=== PATIENT | female | born 1940 | race Caucasian/White ===

== ENCOUNTER 2019-10-16 04:05 | Outpatient (RCR) | payer MEDICARE, MEDICAID, SELFPAY | END 2019-10-21 00:01 | LOC: LAB 04:05 | PROVIDERS: Family Provider Family Medicine; Visit Provider Nurse Practitioner Family | DX: F33.3 Major depressive disorder, recurrent, severe with psychotic symptoms (principal) | CPT/HCPCS: 36415 ×4; 80048; 83036; 85025 ×4 ==

== ENCOUNTER 2019-10-22 06:00 | Outpatient (CLI) | payer MEDICARE, MEDICAID, SELFPAY | END 2019-10-22 06:01 | disposition home or self-care (01) | LOC: LAB 10-07 15:24 | PROVIDERS: Family Provider Family Medicine; PCP Family Medicine; Visit Provider Nurse Practitioner Family | DX: F29 Unspecified psychosis not due to a substance or known physiological condition (principal) | CPT/HCPCS: 85025 ==

== ENCOUNTER 2019-11-06 06:53 | Outpatient (RCR) | payer MEDICARE, MEDICAID, SELFPAY ==
[2019-10-30 12:07] LABS: Basophils % 0.6 %; Eosinophils # 0.3 10^3/uL (0.0-0.8); Eosinophils % 4.4 %; Hematocrit 36.2 % (37.0-47.0); Hemoglobin 11.2 g/dL (11.5-15.3); Lymphocytes # 1.7 10^3/uL (0.8-4.8); Lymphocytes % 24.1 %; Mean Corpuscular HGB Conc 30.9 g/dL (30.0-36.0); Mean Corpuscular Hemoglobin 27.7 pg (28.0-34.0); Mean Corpuscular Volume 89.4 fL (81-99); Monocytes # 0.5 10^3/uL (0.2-0.9); Monocytes % 7.2 %; Neutrophils # 4.6 10^3/uL (1.8-7.7); Neutrophils % 63.3 %; Nucleated Red Blood Cells % 0 %; Platelet Count 389 10^3/cmm (130-400); Red Blood Count 4.05 10^6/uL (4.1-5.3); Red Cell Distribution Width 15.5 % (12.1-15.1); White Blood Count 7.2 10^3/uL (4.0-10.0)
[2019-11-06 12:42] LABS: Basophils % 0.6 %; Eosinophils # 0.3 10^3/uL (0.0-0.8); Eosinophils % 4.3 %; Hematocrit 34.5 % (37.0-47.0); Hemoglobin 10.7 g/dL (11.5-15.3); Lymphocytes % 27.6 %; Mean Corpuscular Hemoglobin 26.6 pg (28.0-34.0); Mean Corpuscular Volume 85.6 fL (81-99); Mean Platelet Volume 11.3 fL (7.4-10.4); Monocytes # 0.5 10^3/uL (0.2-0.9); Monocytes % 6.2 %; Neutrophils # 4.4 10^3/uL (1.8-7.7); Neutrophils % 60.9 %; Nucleated Red Blood Cells % 0 %; Platelet Count 386 10^3/cmm (130-400); Red Blood Count 4.03 10^6/uL (4.1-5.3); Red Cell Distribution Width 14.8 % (12.1-15.1); White Blood Count 7.2 10^3/uL (4.0-10.0)
== END 2019-11-21 23:59 | disposition home or self-care (01) ==
LOC: LAB 06:53
PROVIDERS: Family Provider Family Medicine; PCP Family Medicine; Visit Provider Dermatology
DX: F33.3 Major depressive disorder, recurrent, severe with psychotic symptoms (principal)
CPT/HCPCS: 85025

== ENCOUNTER 2019-11-13 13:18 | Outpatient (RCR) | payer MEDICARE, MEDICAID, SELFPAY ==
[2019-11-13 14:15] LABS: Basophils % 0.4 %; Eosinophils # 0.4 10^3/uL (0.0-0.8); Hemoglobin 10.7 g/dL (11.5-15.3); Lymphocytes # 2.3 10^3/uL (0.8-4.8); Lymphocytes % 23.3 %; Mean Corpuscular HGB Conc 30.6 g/dL (30.0-36.0); Mean Corpuscular Hemoglobin 27.3 pg (28.0-34.0); Mean Corpuscular Volume 89.3 fL (81-99); Mean Platelet Volume 11.2 fL (7.4-10.4); Monocytes # 0.6 10^3/uL (0.2-0.9); Neutrophils # 6.4 10^3/uL (1.8-7.7); Neutrophils % 65.6 %; Nucleated Red Blood Cells % 0 %; Platelet Count 394 10^3/cmm (130-400); Red Blood Count 3.92 10^6/uL (4.1-5.3); Red Cell Distribution Width 15.6 % (12.1-15.1); White Blood Count 9.7 10^3/uL (4.0-10.0)
== END 2019-11-21 23:59 | disposition home or self-care (01) ==
LOC: LAB 13:18
PROVIDERS: Family Provider Family Medicine; PCP Family Medicine; Visit Provider Internal Medicine
DX: F33.3 Major depressive disorder, recurrent, severe with psychotic symptoms (principal)
CPT/HCPCS: 85025

== ENCOUNTER 2020-08-14 18:26 | Emergency (ER) | payer MEDICARE, MEDICAID, SELFPAY ==
[2020-08-14] VITALS (8 sets, daily range): BP systolic 119–171; BP diastolic 69–105; PULSE 76–85; RESP 16–20; TEMP 36.6; O2SAT 93–100; BMI 25.3
--- NOTE | 2020-08-14 18:44 | XRR_ITS ---
PROCEDURE INFORMATION: Exam: XR Chest, 1 View Exam date and time: 08/14/2020 6:46 PM Age: 80 years old Clinical indication: Dyspnea; Patient HX: Covid +; Additional info: Hypoxia TECHNIQUE: Imaging protocol: XR of the chest Views: 1 view. COMPARISON: CR Chest 1 [place] [id number] 08/12/2019 9:09 PM FINDINGS: Tubes, catheters and devices: Shunt catheter tubing is projected over the right chest. Lungs: The lungs are hyperinflated with diffuse mild interstitial fibrosis. No airspace consolidation. Pulmonary vascularity is within normal limits. Pleural space: Unremarkable. No pleural effusion. No pneumothorax. Heart/Mediastinum: A large hiatal hernia is present. The heart is enlarged. Bones/joints: No acute abnormality. XR/XR chest 1V portable [id number] IMPRESSION: The lungs are hyperinflated but clear. Probable interstitial fibrosis.
--- NOTE | 2020-08-14 18:47 | ED_ITS ---
HPI - COVID General: Chief Complaint: COVID symptoms Stated Complaint: COVID POS; RESP DISTRESS Time Seen by Provider: 08/14/20 18:27 Source: patient and EMS Mode of arrival: EMS Limitations: other (dementia) History of Present Illness: HPI Narrative: Patient is a 80-year-old half-way resident who was diagnosed with COVID-19 3 days ago. Decide about 30 minutes ago the patient went into respiratory distress with oxygen saturation at 85% on 2 L of oxygen. The EMS crew increase oxygen to 5 L and her saturation went up into the high 90s. The patient has dementia and is unable to give me much of a history but she did say she was short of breath and she denied chest pain. It is uncertain if she has had a fever in the last few days. MD complaint: known COVID positive Prior covid testing: yes, results known COVID 19 common symptoms: positive dyspnea COVID 19 other sytmptoms: positive requiring oxygen, requiring more oxygen and respiratory distress Pertinent comorbid conditions: diabetes, hypertension and heart disease COVID Results: No Data to Display Review of Systems General: Reports: ROS unobtainable due to mental status Resp: Reports: dyspnea PFSH ED PFSH: Medical History Atherosclerosis of coronary artery Hyperlipidemia Family History Mother Cancer CAD (coronary artery disease) Myocardial infarction Stroke Diabetes Hypertension Father CAD (coronary artery disease) Myocardial infarction Sister Diabetes Grandmother Diabetes Social History Smoking and tobacco status: never smoked Physical Exam Const: COMMON NORMALS: no acute distress, average body habitus, patient oriented x3, no limitations, healthy appearing, alert and well nourished HENMT: COMMON NORMALS: normocephalic, atraumatic and moist oral mucous membranes HEAD & SCALP: normocephalic and atraumatic Eye: COMMON NORMALS: Equal, round and reactive pupils present, EOMs intact bilaterally, conjunctivae normal and no scleral icterus CONJUNCTIVA: Yes conjunctivae normal PUPIL: Yes Equal, round and reactive pupils present Neck/C-Spine: COMMON NORMALS: no meningeal signs and no JVD Resp: COMMON NORMALS: normal respiratory effort, No retractions, No use of accessory muscles, clear to auscultation bilaterally and percussion normal AUSCULTATION: clear to auscultation bilaterally PERCUSSION: percussion normal Cardio: COMMON NORMALS: no JVD, regular rate, regular rhythm, S1 normal heart sound present, S2 normal heart sound present, No gallops present (Cardio), No clicks present (Cardio), No murmurs present (Cardio), No rub (Cardio) and Peripheral pulses 2+ throughout RATE: regular rate RHYTHM: regular rhythm HEART SOUNDS: S1 normal heart sound present and S2 normal heart sound present PERIPHERAL PULSES: Peripheral pulses 2+ throughout GI: COMMON NORMALS: Normal to inspection, nondistended, normoactive bowel sounds present, Soft to palpation, non-tender, No hepatosplenomegaly present, no masses and no bruits PALPATION: Yes Soft to palpation and Yes No hepatosplenomegaly present Extremity: COMMON NORMALS: normal to inspection, full ROM, capillary refill normal, no calf tenderness and no pedal edema Neuro: COMMON NORMALS: patient oriented x3 SENSORIUM/ORIENTATION: Yes alert MENINGEAL SIGNS: Yes no meningeal signs Skin: COMMON NORMALS: no rashes or lesions noted, no wounds, turgor normal, no jaundice, no petechiae and no mottling GENERAL SKIN EXAM: no rashes or lesions noted and turgor normal Course ED course: Patient was sent here from the half-way with concerns of respiratory distress secondary to COVID-19. She was recently diagnosed with COVID-19 and he felt that her symptoms are worsening today. In the emergency department evaluation showed that she was not in distress, labs and imaging are not consistent with severe COVID-19 illness. She is therefore discharged back to the nursing facility with no new orders. Vital Signs: Vital signs: Vital Signs Temperature 97.8 F 08/14/20 18:43 Pulse Rate 79 08/15/20 00:46 Respiratory Rate 18 08/15/20 00:46 Blood Pressure 137/94 08/15/20 00:46 Pulse Oximetry 96 08/15/20 00:46 MDM - COVID MDM Narrative Medical decision making narrative: 80-year-old half-way resident who was sent to the emergency department with concerns for respiratory distress. Patient was not in respiratory distress and on evaluation there are no clinical findings consistent with severe COVID-19 infection. She is discharged back to the half-way with no new orders Medical Records Attestation: I reviewed the patient's medical records. Lab Data Attestation: I reviewed the patient's lab results. Result diagrams: 08/14/20 19:50 08/14/20 19:50 Labs: Lab Results 08/14/20 08/14/20 08/14/20 Range/Units 19:50 19:50 19:50 WBC 8.9 (4.0-10.0) 10^3/uL RBC 2.88 L (4.1-5.3) 10^6/uL Hgb 8.5 L (11.5-15.3) g/dL Hct 27.2 L (37.0-47.0) % MCV 94.4 (81-99) fL MCH 29.5 (28.0-34.0) pg MCHC 31.3 (30.0-36.0) g/dL RDW 14.0 (12.1-15.1) % Plt Count 298 (130-400) 10^3/cmm MPV 10.7 H (7.4-10.4) fL Neut % (Auto) 85.5 % Lymph % (Auto) 9.9 % [place] % (Auto) 3.1 % Eos % (Auto) 0.3 % Baso % (Auto) 0.2 % Neut # (Auto) 7.62 (1.8-7.7) 10^3/uL Lymph # (Auto) 0.9 (0.8-4.8) 10^3/uL [place] # (Auto) 0.3 (0.2-0.9) 10^3/uL Eos # (Auto) 0.0 (0.0-0.8) 10^3/uL Baso # (Auto) 0.0 (0.0-0.1) 10^3/uL Nucleated RBC % (auto) 0 % Nucleated RBCs # 0.0 /100WBC Fibrinogen 392 (174-498) mg/dL D-Dimer 1.14 H (0-0.59) ug/mIFEU Sodium 136 (136-145) mmol/L Potassium 4.2 (3.5-5.1) mmol/L Chloride 99 (98-107) mmol/L Carbon Dioxide 23 (22-29) mmol/L Anion Gap 18.2 (5-19) BUN 34 H (8-23) mg/dL Creatinine 1.4 H (0.5-0.9) mg/dL GFR Calculation Not Reportable Glucose 168 H (65-115) mg/dL Calculated Osmolality 293 (285-295) mOsm/kg Lactic Acid (0.5-2.2) mmol/L Calcium 8.8 (8.5-10.5) mg/dL Total Bilirubin 0.2 (0.15-1.2) mg/dL AST 9 (0-32) U/L ALT 9 (0-33) U/L Alkaline Phosphatase 82 (35-105) IU/L Lactate Dehydrogenase 188 (135-214) U/L Creatine Kinase 73 (26-192) U/L Troponin T Baseline (0-10) ng/L Troponin T 120 Minute (0-10) ng/L Delta Troponin T (0-10) ABS# C-Reactive Protein 16.5 H (0.0-4.9) mg/L Total Protein 5.6 L (6.6-8.7) g/dL Albumin 3.7 (3.5-5.2) g/dL Globulin 1.9 (1.3-4.6) g/dL Procalcitonin 0.11 (0-0.5) ng/mL 08/14/20 08/14/20 08/14/20 Range/Units 19:50 19:55 22:05 WBC (4.0-10.0) 10^3/uL RBC (4.1-5.3) 10^6/uL Hgb (11.5-15.3) g/dL Hct (37.0-47.0) % MCV (81-99) fL MCH (28.0-34.0) pg MCHC (30.0-36.0) g/dL RDW (12.1-15.1) % Plt Count (130-400) 10^3/cmm MPV (7.4-10.4) fL Neut % (Auto) % Lymph % (Auto) % [place] % (Auto) % Eos % (Auto) % Baso % (Auto) % Neut # (Auto) (1.8-7.7) 10^3/uL Lymph # (Auto) (0.8-4.8) 10^3/uL [place] # (Auto) (0.2-0.9) 10^3/uL Eos # (Auto) (0.0-0.8) 10^3/uL Baso # (Auto) (0.0-0.1) 10^3/uL Nucleated RBC % (auto) % Nucleated RBCs # /100WBC Fibrinogen (174-498) mg/dL D-Dimer (0-0.59) ug/mIFEU Sodium (136-145) mmol/L Potassium (3.5-5.1) mmol/L Chloride (98-107) mmol/L Carbon Dioxide (22-29) mmol/L Anion Gap (5-19) BUN (8-23) mg/dL Creatinine (0.5-0.9) mg/dL GFR Calculation Glucose (65-115) mg/dL Calculated Osmolality (285-295) mOsm/kg Lactic Acid 1.8 (0.5-2.2) mmol/L Calcium (8.5-10.5) mg/dL Total Bilirubin (0.15-1.2) mg/dL AST (0-32) U/L ALT (0-33) U/L Alkaline Phosphatase (35-105) IU/L Lactate Dehydrogenase (135-214) U/L Creatine Kinase (26-192) U/L Troponin T Baseline 25 H (0-10) ng/L Troponin T 120 Minute 20.71 H (0-10) ng/L Delta Troponin T -4.29 L (0-10) ABS# C-Reactive Protein (0.0-4.9) mg/L Total Protein (6.6-8.7) g/dL Albumin (3.5-5.2) g/dL Globulin (1.3-4.6) g/dL Procalcitonin (0-0.5) ng/mL COVID Results: No Data to Display Imaging Data CXR: Attestation: I personally reviewed and interpreted this imaging study as follows: Radiologist's impression: [address] [address] XRay Report Signed Patient: Ladonna Linder AUnit #: [id number] : 1Acct#:[id number] Age/Sex: 80 / FADM Date: 08/14/20 Loc: ERRoom/Bed: Attending Dr: Ordering Provider/Ordering MD: Fernandez Rushing MD, [facility] [place] Date of Service: 08/14/20 Procedure(s): XR chest 1V portable [id number] Accession Number(s): [id number] Report Number: [id number] PROCEDURE INFORMATION: Exam: XR Chest, 1 View Exam date and time: 08/14/2020 6:46 PM Age: 80 years old Clinical indication: Dyspnea; Patient HX: Covid +; Additional info: Hypoxia TECHNIQUE: Imaging protocol: XR of the chest Views: 1 view. COMPARISON: CR Chest 1 [place] [id number] 08/12/2019 9:09 PM FINDINGS: Tubes, catheters and devices: Shunt catheter tubing is projected over the right chest. Lungs: The lungs are hyperinflated with diffuse mild interstitial fibrosis. No airspace consolidation. Pulmonary vascularity is within normal limits. Pleural space: Unremarkable. No pleural effusion. No pneumothorax. Heart/Mediastinum: A large hiatal hernia is present. The heart is enlarged. Bones/joints: No acute abnormality. XR/XR chest 1V portable [id number] IMPRESSION: The lungs are hyperinflated but clear. Probable interstitial fibrosis. Dictated By:Meche Frazier Signed By:Lavelle Frazier Date/Time:08/14/201927 DD/ 26 EKG Data EKG 1: Attestation: I personally reviewed and interpreted this EKG as follows: EKG interpretation date: 08/14/20 EKG interpretation time: 19:16 Prior EKG tracings: not available for review Interpretation: Atrial fibrillation. Heart rate [address] changes. EKG 2: Attestation: I personally reviewed and interpreted this EKG as follows: EKG interpretation date: 08/14/20 EKG interpretation time: 21:53 Prior EKG tracings: available for review Interpretation: Rhythm with occasional supraventricular premature complexes. Heart rate [address] changes. Discharge Plan Discharge Patient Disposition: Xfer [facility] Not MCR Cert Clinical Impression: COVID-19 Condition: Stable Prescriptions: Continued pravastatin 20 mg tablet 20 mg PO DAILY RF: 0 metoprolol succinate 25 mg tablet extended release 24 hr 12.5 mg PO DAILY RF: 0 isosorbide mononitrate 30 mg tablet extended release 24 hr 30 mg PO DAILY RF: 0 acetaminophen [Tylenol] 325 mg tablet 325 mg PO QID PRNRF: 0 alprazolam 0.25 mg tablet 0.25 mg PO TID PRNRF: 0 amantadine HCl 100 mg capsule 100 mg PO BID RF: 0 clozapine 50 mg tablet 50 mg PO BID RF: 0 ferrous sulfate 325 mg (65 mg iron) tablet 325 mg PO DAILY RF: 0 Lantus U-100 Insulin 100 unit/mL solution 100 unit SUBCUT DAILY RF: 0 levothyroxine 50 mcg capsule 50 mcg PO DAILY RF: 0 lisinopril 10 mg tablet 10 mg PO DAILY RF: 0 lorazepam 1 mg tablet 1 mg PO DAILY PRNRF: 0 metformin 1,000 mg tablet 1,000 mg PO BID RF: 0 omega-3 fatty acids 1,000 mg capsule 1,000 mg PO DAILY RF: 0 ondansetron HCl [Zofran] 4 mg tablet 4 mg PO Q8H RF: 0 polyethylene glycol 3350 [Miralax] 17 gram powder in packet 17 gm PO DAILY RF: 0 senna 8.6 mg capsule 8.6 mg PO BID PRNRF: 0 sertraline 100 mg tablet 100 mg PO DAILY RF: 0 vitamin B complex [B Complex-Vitamin B12] Tablet 1 tab PO DAILY RF: 0 vitamin E (dl, acetate) 400 unit capsule 400 unit PO DAILY RF: 0 omeprazole 40 mg capsule,delayed release(DR/EC) 40 mg PO DAILY RF: 0 Latuda 40 mg tablet 40 mg PO DAILY RF: 0 Discharge Orders: Discharge Order (Routine); Ordered 08/14/20 Ordered By: Fernandez Rushing Referrals: Edwardo Carranza Jr, MD [Primary Care Provider] - 1-3 days Discharge Diet: Usual diet Discharge Activity: Resume usual activity Activity Restrictions/Additional Instructions: Return for any new or worsening symptoms. Continue home medications. Monitor your oxygen levels if it drops below 92% return for evaluation. Follow-up with your primary care provider within 3 days. Coding Level of Care Code ED Medical Staff Director for Chg Fwd Exam Comprehensive
--- NOTE | 2020-08-14 18:52 | ECG_ITS ---
[facility] Test Date: 2020-08-14 Pat Name: Ladonna Linder Department: Room: Gender: Female Paper Finisher: : 1940 Requested By: Fernandez Rushing I Order Number: [id number] Reinaldo MD: May Cruz M.D. Measurements Intervals [employer] Rate: 80 P: [place]: -1 QRS: -13 QRSD: 86 T: 90 QT: 391 QTc: 453 Interpretive Statements ATRIAL FIBRILLATION POSSIBLE LATERAL MYOCARDIAL INFARCTION , OF INDETERMINATE AGE WARNING: DATA QUALITY MAY AFFECT INTERPRETATION Compared to ECG 08/12/2019 23:53:45 Myocardial infarct finding now present Sinus rhythm no longer present Electronically Signed On 08-15-2020 12:10:51 CDT by May Cruz M.D. [id number]
[2020-08-14 20:25] LABS: Fibrinogen 392 mg/dL (174-498)
[2020-08-14 20:28] LABS: D Dimer 1.14 ug/mIFEU (0-0.59); Lactic Sepsis W/Reflex 1.8 mmol/L (0.5-2.2)
[2020-08-14 20:31] LABS: Troponin(5th) Baseline 25 ng/L (0-10)
[2020-08-14 20:33] LABS: Basophils % 0.2 %; Eosinophils % 0.3 %; Hematocrit 27.2 % (37.0-47.0); Hemoglobin 8.5 g/dL (11.5-15.3); Lymphocytes # 0.9 10^3/uL (0.8-4.8); Lymphocytes % 9.9 %; Mean Corpuscular HGB Conc 31.3 g/dL (30.0-36.0); Mean Corpuscular Hemoglobin 29.5 pg (28.0-34.0); Mean Corpuscular Volume 94.4 fL (81-99); Mean Platelet Volume 10.7 fL (7.4-10.4); Monocytes # 0.3 10^3/uL (0.2-0.9); Monocytes % 3.1 %; Neutrophils # 7.62 10^3/uL (1.8-7.7); Neutrophils % 85.5 %; Nucleated Red Blood Cells % 0 %; Platelet Count 298 10^3/cmm (130-400); Red Blood Count 2.88 10^6/uL (4.1-5.3); White Blood Count 8.9 10^3/uL (4.0-10.0)
[2020-08-14 20:39] LABS: Procalcitonin 0.11 ng/mL (0-0.5)
[2020-08-14 20:50] LABS: Alanine Aminotransferase 9 U/L (0-33); Albumin Level 3.7 g/dL (3.5-5.2); Alkaline Phosphatase 82 IU/L (35-105); Anion Gap 18.2 (5-19); Aspartate Amino Transferase 9 U/L (0-32); Blood Urea Nitrogen 34 mg/dL (8-23); C Reactive Protein 16.5 mg/L (0.0-4.9); Calcium 8.8 mg/dL (8.5-10.5); Carbon Dioxide 23 mmol/L (22-29); Chloride 99 mmol/L (98-107); Creatine Phosphokinase 73 U/L (26-192); Globulin 1.9 g/dL (1.3-4.6); Glucose 168 mg/dL (65-115); Lactate Dehydrogenase 188 U/L (135-214); Osmolality Calculated 293 mOsm/kg (285-295); Potassium 4.2 mmol/L (3.5-5.1); Sodium 136 mmol/L (136-145); Total Bilirubin 0.2 mg/dL (0.15-1.2); Total Protein 5.6 g/dL (6.6-8.7)
--- NOTE | 2020-08-14 20:52 | ECG_ITS ---
[facility] Test Date: 2020-08-14 Pat Name: Ladonna Linder Department: Room: Gender: Female Staffing Administrator: : 1940 Requested By: Fernandez Rushing I Order Number: [id number] Reinaldo MD: May Cruz M.D. Measurements Intervals [place] Rate: 81 P: 92 NE: 116 QRS: -11 QRSD: 89 T: 30 QT: 401 QTc: 468 Interpretive Statements SINUS RHYTHM WITH SHORT NE INTERVAL WITH OCCASIONAL SUPRAVENTRICULAR PREMATURE COMPLEXES NONSPECIFIC T-WAVE ABNORMALITY Compared to ECG 08/14/2020 19:16:19 Short NE interval now present T-wave abnormality now present Atrial fibrillation no longer present Myocardial infarct finding no longer present Electronically Signed On 08-14-2020 22:09:10 CDT by May Cruz M.D. [id number]
[2020-08-14 22:56] LABS: Troponin 5 2HR 20.71 ng/L (0-10); Troponin 5 2HR Delta -4.29 ABS# (0-10)
--- NOTE | 2020-08-15 00:07 | PC.SOCIAL ---
Trip number [id number], Nurse will do BLS form and submit to [facility].
[2020-08-15 00:29] VITALS: BP 124/75; PULSE 79; O2SAT 94
[2020-08-15 00:46] VITALS: BP 137/94; PULSE 79; RESP 18; O2SAT 96
[2020-08-15 01:21] VITALS: BP 140/78; PULSE 75; O2SAT 100
[2020-08-15 02:04] VITALS: BP 116/72; PULSE 71; RESP 18; O2SAT 100
--- NOTE | 2020-08-16 06:35 | PC.NURSE ---
Thom called to inform them that patient 1/4 aerobic blood culture bottles tested gram positive for cocci and clusters
== END 2020-08-15 03:24 ==
PROVIDERS: Emergency Provider Family Medicine; Family Provider Family Medicine; PCP Family Medicine
DX: U07.1 COVID-19 (principal); Z79.4 Long term (current) use of insulin; E78.5 Hyperlipidemia, unspecified; I25.10 Atherosclerotic heart disease of native coronary artery without angina pectoris
CPT/HCPCS: 12345; 71045; 80053; 82550; 83605; 83615; 84145; 84484; 85025; 85378; 85384; 86140; 87040; 87205; 93005; 99283

== ENCOUNTER 2020-10-08 02:09 | Emergency (ER) | payer MEDICARE, MEDICAID, SELFPAY ==
[2020-10-08] VITALS (37 sets, daily range): BP systolic 136–160; BP diastolic 71–86; PULSE 78–93; RESP 14–27; TEMP 37; O2SAT 84–100; BMI 23.3
--- NOTE | 2020-10-08 02:13 | CTR_ITS ---
PROCEDURE INFORMATION: Exam: CT Head Without Contrast Exam date and time: 10/08/2020 2:17 AM Age: 80 years old Clinical indication: Altered mental status/memory loss; Prior surgery; Surgery type: Shunt; Patient HX: Seizure activity this a. M. ; Additional info: New onset seizures TECHNIQUE: Imaging protocol: Computed tomography of the head without contrast. Radiation optimization: All CT scans at this facility use at least one of these dose optimization techniques: automated exposure control; mA and/or kV adjustment per patient size (includes targeted exams where dose is matched to clinical indication); or iterative reconstruction. COMPARISON: CT head wo con* [id number] 08/12/2019 9:00 PM RADIATION DOSE METRICS: Total DLP (mGy-cm): 474.84 FINDINGS: Tubes, catheters and devices: Right posterior MEDICAL NURSE shunt tube crosses the midline, tip in the frontal horn of the left lateral ventricle, not significantly changed. Ventricle size appears essentially stable, no significant hydrocephalus. Brain: No acute intracranial hemorrhage or mass effect. There is decreased attenuation in the periventricular white matter, likely from microvascular disease. No definite acute infarct by CT. MRI could be more sensitive/specific for detection, as clinically directed. Cerebral ventricles: See Tubes, catheters and devices finding. Bones/joints: No definite acute skull fracture. Paranasal sinuses: Included paranasal sinuses are essentially clear. Mastoid air cells: No significant acute finding. Vasculature: Vascular calcifications in the internal carotid and vertebral basilar systems. CT/CT head wo con* [id number] IMPRESSION: 1. No acute intracranial hemorrhage or mass effect. 2. No definite acute infarct by CT, see above. 3. MEDICAL NURSE shunt tube as above, no hydrocephalus. 4. Other findings discussed above. Radiation Dose CTDIVOL = (mGy): DLP = 474.84 (mGy-cm)
--- NOTE | 2020-10-08 02:13 | XR_ITS ---
WS: [id number] XR chest 1V portable [id number] REASON FOR EXAM: Seizure FINDINGS: Compared to the previous examination of 08/14/2020, there is ill-defined increased opacity overlying the left costophrenic angle and adjacent to the left heart border. Large hiatal hernia the heart and mediastinum are otherwise unremarkable. Ventriculoperitoneal shunt tubing crosses the medial aspect of the right chest. The right lung field is clear. No significant abnormality of the bony thorax. XR/XR chest 1V portable [id number] IMPRESSION: The density in the base of the left lung is likely due to poor inspiratory effo rt and an element of atelectasis. Follow-up chest x-ray with better inspiration if possible.
--- NOTE | 2020-10-08 02:14 | ECG_ITS ---
[facility] Test Date: 2020-10-08 Pat Name: Ladonna Linder Department: Room: Gender: Female Auto Tester: : 1940 Requested By: Lois Fagan Order Number: [id number] Reinaldo MD: Juan Horne M.D. Measurements Intervals [place] Rate: 77 P: 73 NE: 120 QRS: -4 QRSD: 102 T: 132 QT: 411 QTc: 468 Interpretive Statements Possible multifocal atrial rhythm MODERATE ST DEPRESSION [0.05+ mV ST DEPRESSION] ABNORMAL QRS-T ANGLE [QRS-T AXIS DIFFERENCE > 60] INTERPRETATION BASED ON A DEFAULT AGE OF 40 YEARS Compared to ECG 08/14/2020 21:53:38 ST (T wave) deviation now present Short NE interval no longer present T-wave abnormality no longer present Electronically Signed On 10-08-2020 18:33:12 COMMERCIAL BANKER by Juan Horne M.D. [id number] f
--- NOTE | 2020-10-08 02:16 | XR_ITS ---
WS: [id number] XR pelvis 1-2V* [id number] REASON FOR EXAM: fall FINDINGS: Ventriculoperitoneal shunt tubing is noted coiled in the lower pelvis. 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 The right femoral head, femoral neck, trochanters and intertrochanteric region are unremarkable. The proximal femur below the trochanters is normal. The superior and inferior pubic ramus are normal. XR/XR pelvis 1-2V* [id number] IMPRESSION: No fracture identified.
--- NOTE | 2020-10-08 02:33 | ED_ITS ---
HPI - Seizure General: Chief Complaint: Seizure Stated Complaint: seizure Time Seen by Provider: 10/08/20 02:13 Source: patient and EMS Mode of arrival: EMS Limitations: altered mental status History of Present Illness: HPI Narrative: Ladonna is a very pleasant 80-year-old female who comes in from the long-term after having a witnessed 4-minute grand mal seizure. The patient was going to sit on the toilet when she stood and stiffen before sitting down and then was lowered to the ground by staff and witnessed to have a 4-minute tonic-clonic seizure. Patient was postic dulce but upon EMS arrival she was beginning to wake up. She was recognizing people at the long-term before she came here. Patient's sister states that about 1-1/2 years ago it is believed that she may have had a seizure then but it was not definitively determined so she was not placed on any medications. 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 Patient's not been sick recently with any type of fever, urinary symptoms or cough. The patient has had the Covid virus but it was several months ago and she has completely recovered. Patient at this time appears to have a GCS of 14 but she is slightly confused so history given by her is deemed questionably reliable. She denies any pain at this time. Review of Systems General: Reports: ROS unobtainable due to mental status [facility] ED PFSH: Medical History (Updated 10/08/20 @ 04:40 by Lois Gonzales) Atherosclerosis of coronary artery Dementia Diabetes mellitus GERD (gastroesophageal reflux disease) GI bleed Hiatal hernia History of pulmonary embolism Hyperlipidemia Hypertension Neuropathy OCD (obsessive compulsive disorder) S/P ORIF (open reduction internal fixation) fracture right humerous Family History Mother Cancer CAD (coronary artery disease) Myocardial infarction Stroke Diabetes Hypertension Father CAD (coronary artery disease) Myocardial infarction Sister Diabetes Grandmother Diabetes Social History Smoking and tobacco status: never smoked Physical Exam Const: COMMON NORMALS: no acute distress, no limitations and alert GENERAL APPEARANCE: cooperative HENMT: COMMON NORMALS: normocephalic, atraumatic, external ears normal, EAC's normal and Normal external nose present HEAD & SCALP: normal to inspection, normocephalic and atraumatic FACE & SINUS: normal facial exam and face symmetric NOSE: Normal external nose present and Normal nares present EXTERNAL EAR: Yes external ears normal EXTERNAL AUDITORY CANAL: EAC's normal MOUTH: Normal oral and palatal mucosa present, lip normal and tongue normal Eye: COMMON NORMALS: Equal, round and reactive pupils present and conjunctivae normal GENERAL EYE: appearance normal, both eyes and all related structures ALIGNMENT: Yes alignment normal PERIORBITAL: periorbital findings normal EYELID: eyelids normal CONJUNCTIVA: Yes conjunctivae normal SCLERA: sclerae normal PUPIL: Yes Equal, round and reactive pupils present Neck/C-Spine: COMMON NORMALS: full ROM, no lymphadenopathy, supple, no meningeal signs and no JVD GENERAL: Yes normal visual inspection and Yes trachea midline Chest: COMMONS NORMALS: normal inspection of the chest and normal palpation of entire chest wall Resp: COMMON NORMALS: normal respiratory effort, No retractions, No use of accessory muscles and clear to auscultation bilaterally EFFORT & INSPECTION: Yes able to speak in complete sentences and Yes symmetric chest movement AUSCULTATION: clear to auscultation bilaterally, no crackles, no rales, no rhonchi and no wheezes Cardio: COMMON NORMALS: no JVD, regular rate, regular rhythm, S1 normal heart sound present and S2 normal heart sound present RATE: regular rate RHYTHM: regular rhythm HEART SOUNDS: S1 normal heart sound present, S2 normal heart sound present, no click, no gallops, no murmurs and no rubs GI: COMMON NORMALS: Soft to palpation and No hepatosplenomegaly present PALPATION: Yes Soft to palpation, No Tenderness to palpation present (GI), No Guarding due to palpation present (GI), No Rigid due to palpation, Yes No hepatosplenomegaly present, No Hernia present, No Palpable mass present and No Pulsatile mass present : COMMON NORMALS: Yes no CVA tenderness BLADDER/KIDNEY EXAM: Yes no CVA tenderness EXTERNAL FEMALE EXAM: No Hernia present Back/Pelvis: COMMON NORMALS: no CVA tenderness, thoracic and lumbar spine normal to inspection, no thoracic nor lumbar tenderness and thoraco-lumbar ROM normal Extremity: COMMON NORMALS: normal to inspection, full ROM, capillary refill normal, no joint enlargement, no clubbing, cyanosis or edema and no calf tenderness Neuro: PETERSON COMA SCALE: document GCS findings Peterson coma scale eye opening: Spontaneous Peterson coma scale verbal response: Confused [place] coma scale motor response: Obey commands [place] coma scale total score: 14 COMMON NORMALS: CN's II-XII intact bilaterally, moves all extremities, no focal motor deficits and no sensory deficits noted SENSORIUM/ORIENTATION: Yes alert MENINGEAL SIGNS: Yes no meningeal signs SPEECH: speech normal Skin: COMMON NORMALS: no rashes or lesions noted, turgor normal, no jaundice, no petechiae and no mottling GENERAL SKIN EXAM: no rashes or lesions noted and turgor normal Course Vital Signs: Vital signs: Vital Signs Temperature 98.6 F 10/08/20 02:12 Pulse Rate 87 10/08/20 04:15 Respiratory Rate 18 10/08/20 04:15 Blood Pressure 150/86 10/08/20 04:15 Pulse Oximetry 98 10/08/20 04:15 MDM - Seizure MDM Narrative: Medical decision making narrative: [id number] -Mrs. Linder is a very nice 80-year-old female who comes on after a witnessed seizure at the long-term. Work-up here shows her GAS TRANSFER OPERATOR shunt to be stable with no evidence of hydrocephalus. Her sister is here and present and feels that the patient is back to her baseline mental function. Patient does not show any lateralizing weakness, aphasia or symptom of stroke. Patient does have urinary tract infection as well as hypomagnesemia which both could be a precipitant of seizure. Patient sister relates that a year and a half ago the patient had what was believed to be a seizure but she did follow-up with a neurologist at [facility], Dr. Madrid he ultimately did not address this at that time and the patient has been seizure-free until tonight. Patient does not have a headache, fever and overall she does not appear septic and I doubt meningitis or encephalitis as a cause. Nonetheless I still have offered a lumbar puncture to the patient and her sister but they declined. I do not believe this is absolutely necessary but I will treat the patient's urinary tract infection with Omnicef. Patient will be loaded with Rocephin here. The patient does not have any previous urinary cultures here to base treatment on. Openly the patient appears improved and stable and her sister who is her DURABLE POWER OF GAS WELDER for healthcare would like her to go back to the long-term. We will arrange for this. They understand they are can return here anytime should her symptoms worsen or they change their mind about further evaluation and care. Lab Data: Labs: Lab Results 10/08/20 10/08/20 10/08/20 Range/Units 02:54 03:32 03:32 WBC 10.3 H (4.0-10.0) 10^3/ uL RBC 3.35 L (4.1-5.3) 10^6/u L Hgb 9.0 L (11.5-15.3) g/dL Hct 30.2 L (37.0-47.0) % MCV 90.1 (81-99) fL MCH 26.9 L (28.0-34.0) pg MCHC 29.8 L (30.0-36.0) g/dL RDW 14.3 (12.1-15.1) % Plt Count 438 H (130-400) 10^3/c mm MPV 10.3 (7.4-10.4) fL Neut % (Auto) 76.6 % Lymph % (Auto) 14.7 % Tompkins % (Auto) 5.1 % Eos % (Auto) 2.0 % Baso % (Auto) 0.4 % Neut # (Auto) 7.88 H (1.8-7.7) 10^3/u L Lymph # (Auto) 1.5 (0.8-4.8) 10^3/u L Tompkins # (Auto) 0.5 (0.2-0.9) 10^3/u L Eos # (Auto) 0.2 (0.0-0.8) 10^3/u L Baso # (Auto) 0.0 (0.0-0.1) 10^3/u L Nucleated RBC % (a uto) 0 % Nucleated RBCs # 0.0 /100WBC PT 13.90 (12.1-14.9) SECO NDS INR 1.04 (0.8-1.2) Sodium (136-145) mmol/L Potassium (3.5-5.1) mmol/L Chloride (98-107) mmol/L Carbon Dioxide (22-29) mmol/L Anion Gap (5-19) BUN (8-23) mg/dL Creatinine (0.5-0.9) mg/dL GFR Calculation Glucose (65-115) mg/dL Calculated Osmolal ity (285-295) mOsm/k g Calcium (8.5-10.5) mg/dL Magnesium (1.7-2.3) mg/dL Total Bilirubin (0.15-1.2) mg/dL AST (0-32) U/L ALT (0-33) U/L Alkaline Phosphata se (35-105) IU/L Troponin T Baselin e (0-10) ng/L Total Protein (6.6-8.7) g/dL Albumin (3.5-5.2) g/dL Globulin (1.3-4.6) g/dL Urine Color Yellow (Yellow) Urine Appearance Cloudy (CLEAR) Urine pH 5 (5-7) Ur Specific Gravit y 1.005 (1.005-1.030) Urine Protein Trace (Negative) Urine Glucose (UA) Norm (Normal) Urine Ketones Negative (Negative) Urine Blood 2+ H (Negative) Urine Nitrate Positive H (Negative) Urine Bilirubin Neg (Negative) Urine Urobilinogen Norm (Negative) mg/dL Ur Leukocyte Skyla ase 2+ H (Negative) Urine RBC 0-4 H (0-2) /hpf Urine WBC Too numerous to c nt H (0-5) /hpf Ur Squamous Epith Cells 0-4 H (0-5) /hpf Amorphous Sediment Not Reportable Urine Bacteria 2+ H (NONE) /hpf 10/08/20 10/08/20 Range/Units 03:32 03:32 WBC (4.0-10.0) 10^3/ uL RBC (4.1-5.3) 10^6/u L Hgb (11.5-15.3) g/dL Hct (37.0-47.0) % MCV (81-99) fL MCH (28.0-34.0) pg MCHC (30.0-36.0) g/dL RDW (12.1-15.1) % Plt Count (130-400) 10^3/c mm MPV (7.4-10.4) fL Neut % (Auto) % Lymph % (Auto) % Tompkins % (Auto) % Eos % (Auto) % Baso % (Auto) % Neut # (Auto) (1.8-7.7) 10^3/u L Lymph # (Auto) (0.8-4.8) 10^3/u L Tompkins # (Auto) (0.2-0.9) 10^3/u L Eos # (Auto) (0.0-0.8) 10^3/u L Baso # (Auto) (0.0-0.1) 10^3/u L Nucleated RBC % (a uto) % Nucleated RBCs # /100WBC PT (12.1-14.9) SECO NDS INR (0.8-1.2) Sodium 140 (136-145) mmol/L Potassium 4.0 (3.5-5.1) mmol/L Chloride 103 (98-107) mmol/L Carbon Dioxide 21 L (22-29) mmol/L Anion Gap 20.0 H (5-19) BUN 13 (8-23) mg/dL Creatinine 1.3 H (0.5-0.9) mg/dL GFR Calculation Not Reportable Glucose 122 H (65-115) mg/dL Calculated Osmolal ity 291 (285-295) mOsm/k g Calcium 9.1 (8.5-10.5) mg/dL Magnesium 1.4 L (1.7-2.3) mg/dL Total Bilirubin 0.2 (0.15-1.2) mg/dL AST 7 (0-32) U/L ALT 9 (0-33) U/L Alkaline Phosphata se 128 H (35-105) IU/L Troponin T Baselin e 48 H (0-10) ng/L Total Protein 5.6 L (6.6-8.7) g/dL Albumin 3.3 L (3.5-5.2) g/dL Globulin 2.3 (1.3-4.6) g/dL Urine Color (Yellow) Urine Appearance (CLEAR) Urine pH (5-7) Ur Specific Gravit y (1.005-1.030) Urine Protein (Negative) Urine Glucose (UA) (Normal) Urine Ketones (Negative) Urine Blood (Negative) Urine Nitrate (Negative) Urine Bilirubin (Negative) Urine Urobilinogen (Negative) mg/dL Ur Leukocyte Skyla ase (Negative) Urine RBC (0-2) /hpf Urine WBC (0-5) /hpf Ur Squamous Epith Cells (0-5) /hpf Amorphous Sediment Urine Bacteria (NONE) /hpf Imaging Data^: CT Head: Radiologist's impression: [address] [place] [address] CT Scan Report Signed Patient: Ladonna Linder #: [id number] : 1Acct#:[id number] Age/Sex: 80 / FADM Date: 10/08/20 Loc: ERRoom/Bed: Attending Dr: Ordering Provider/Ordering MD: Lois Gonzales DO Date of Service: 10/08/20 Procedure(s): CT head wo con* [id number] Accession Number(s): [id number] Report Number: [id number] PROCEDURE INFORMATION: Exam: CT Head Without Contrast Exam date and time: 10/08/2020 2:17 AM Age: 80 years old Clinical indication: Altered mental status/memory loss; Prior surgery; Surgery type: Shunt; Patient HX: Seizure activity this a. M. ; Additional info: New onset seizures TECHNIQUE: Imaging protocol: Computed tomography of the head without contrast. Radiation optimization: All CT scans at this facility use at least one of these dose optimization techniques: automated exposure control; mA and/or kV adjustment per patient size (includes targeted exams where dose is matched to clinical indication); or iterative reconstruction. COMPARISON: CT head wo con* [id number] 08/12/2019 9:00 PM RADIATION DOSE METRICS: Total DLP (mGy-cm): 474.84 FINDINGS: Tubes, catheters and devices: Right posterior GAS TRANSFER OPERATOR shunt tube crosses the midline, tip in the frontal horn of the left lateral ventricle, not significantly changed. Ventricle size appears essentially stable, no significant hydrocephalus. Brain: No acute intracranial hemorrhage or mass effect. There is decreased attenuation in the periventricular white matter, likely from microvascular disease. No definite acute infarct by CT. MRI could be more sensitive/specific for detection, as clinically directed. Cerebral ventricles: See Tubes, catheters and devices finding. Bones/joints: No definite acute skull fracture. Paranasal sinuses: Included paranasal sinuses are essentially clear. Mastoid air cells: No significant acute finding. Vasculature: Vascular calcifications in the internal carotid and vertebral basilar systems. CT/CT head wo con* [id number] IMPRESSION: 1. No acute intracranial hemorrhage or mass effect. 2. No definite acute infarct by CT, see above. 3. GAS TRANSFER OPERATOR shunt tube as above, no hydrocephalus. 4. Other findings discussed above. Radiation Dose CTDIVOL = (mGy): DLP = 474.84 (mGy-cm) Dictated By:Phoenix Romero MD Signed By:Phoenix Romero MDSigned Date/Time:10/08/20311 DD/ 0 EKG Data^: EKG 1: Attestation: I personally reviewed and interpreted this EKG as follows: EKG interpretation date: 10/08/20 EKG interpretation time: 02:43 Interpretation: Normal sinus rhythm at 77 beats a minute, significant early baseline artifact present. Precordial leads without any acute ST-T wave changes. No blocks, normal intervals. Discharge Plan Discharge Patient Disposition: Home Clinical Impression: Generalized seizure, Hypomagnesemia UTI (urinary tract infection) Qualifiers: Urinary tract infection type: site unspecified Hematuria presence: with hematuria Qualified Code(s): N39.0 - Urinary tract infection, site not specified Condition: Stable Prescriptions: New cefdinir 300 mg capsule 300 mg PO Q12H 10 Days Qty: 20 RF: 0 Keppra 500 mg tablet 500 mg PO BID 28 Days Qty: 56 RF: 1 No Action pravastatin 20 mg tablet 20 mg PO DAILY RF: 0 metoprolol succinate 25 mg tablet extended release 24 hr 12.5 mg PO DAILY RF: 0 isosorbide mononitrate 30 mg tablet extended release 24 hr 30 mg PO DAILY RF: 0 acetaminophen [Tylenol] 325 mg tablet 325 mg PO QID PRN (Reason: Pain) RF: 0 alprazolam 0.25 mg tablet 0.25 mg PO TID PRN (Reason: Anxiety) RF: 0 amantadine HCl 100 mg capsule 100 mg PO BID RF: 0 clozapine 50 mg tablet 200 mg PO BID RF: 0 ferrous sulfate 325 mg (65 mg iron) tablet 325 mg PO DAILY RF: 0 Lantus U-100 Insulin 100 unit/mL solution 100 unit SUBCUT DAILY RF: 0 levothyroxine 50 mcg capsule 50 mcg PO DAILY RF: 0 lisinopril 10 mg tablet 10 mg PO DAILY RF: 0 lorazepam 1 mg tablet 1 mg PO DAILY PRNRF: 0 metformin 1,000 mg tablet 1,000 mg PO BID RF: 0 omega-3 fatty acids 1,000 mg capsule 1,000 mg PO DAILY RF: 0 ondansetron HCl [Zofran] 4 mg tablet 4 mg PO Q8H RF: 0 polyethylene glycol 3350 [Miralax] 17 gram powder in packet 17 gm PO DAILY RF: 0 senna 8.6 mg capsule 8.6 mg PO BID PRN (Reason: Constipation) RF: 0 sertraline 100 mg tablet 100 mg PO DAILY RF: 0 vitamin B complex [B Complex-Vitamin B12] Tablet 1 tab PO DAILY RF: 0 vitamin E (dl, acetate) 400 unit capsule 400 unit PO DAILY RF: 0 omeprazole 40 mg capsule,delayed release(DR/EC) 40 mg PO DAILY RF: 0 Latuda 40 mg tablet 40 mg PO DAILY RF: 0 albuterol sulfate 2.5 mg /3 mL (0.083 %) Solution For Nebulization 2.5 mg INHALATION QID PRN (Reason: Shortness Of Breath) RF: 0 Artificial Tears (polyvin alc) 1.4 % Drops 1 drp OPHTHALMIC (EYE) QID RF: 0 sertraline 100 mg Tablet 100 mg PO DAILY RF: 0 Milk of Magnesia 400 mg/5 mL Suspension 400 mg PO DAILY PRN (Reason: Constipation) RF: 0 bisacodyl 10 mg Suppository 10 mg AR DAILY PRN (Reason: Constipation) RF: 0 Protonix 40 mg Tablet,Delayed Release (Dr/Ec) 40 mg PO DAILY RF: 0 Enema 19-7 gram/118 mL Enema 118 ml AR DAILY PRN (Reason: Constipation) RF: 0 cranberry 400 mg Capsule 400 mg PO DAILY RF: 0 All Purpose Multivitamin-Min Tablet 1 tab PO DAILY RF: 0 Estrace 0.01 % (0.1 mg/gram) Cream 1 g VAGINAL DAILY RF: 0 Januvia 50 mg Tablet 50 mg PO DAILY RF: 0 Discharge Orders: Discharge ED (Routine); Ordered 10/08/20 Ordered By: Lois Gonzales Referrals: Edwardo Carranza Jr, MD [Primary Care Provider] - 1-3 days (Call Dr. Carranza's office for an appointment to be seen to review tonight's findings or for a scheduled visit in the long-term.) Discharge Diet: Usual diet Discharge Activity: Increase activity as tolerated Patient Instructions: Urinary Tract Infection in Women (ED), Recurrent Seizures Adult (ED) Activity Restrictions/Additional Instructions: Please return to the ER immediately for any of the signs or symptoms listed on your discharge instruction sheets, worsening/changing of your symptoms, you are not getting better as quickly as expected, or for ANY other cause or concerns. No driving, no working at heights, no tub baths, no swimming alone or anything else that would put you at risk should you have another seizure. Call Dr. Madrid's office at [phone] for an appointment to be seen as soon as possible to discuss further evaluation and treatment of your seizures. Return to the ER for another seizure, fever, vomiting, or you get sicker in any other way. 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
--- NOTE | 2020-10-08 02:42 | PC.NURSE ---
standby for suction
--- NOTE | 2020-10-08 02:42 | PC.NURSE ---
x2 attempt for IV placement to right arm failed. notified provider.
[2020-10-08] MEDS: sodium chloride 0.9% 1,000 ML 100 ML IV (03:27)
--- NOTE | 2020-10-08 03:35 | ECG_ITS ---
[facility] Test Date: 2020-10-08 Pat Name: Ladonna Linder Department: Room: Gender: Female Flight Communications Specialist: : 1940 Requested By: Lois Fagan Order Number: [id number] Reinaldo MD: Juan Horne M.D. Measurements Intervals [place] Rate: 91 P: 95 FL: 142 QRS: 7 QRSD: 91 T: 71 QT: 375 QTc: 462 Interpretive Statements SINUS RHYTHM WITH FREQUENT SUPRAVENTRICULAR PREMATURE COMPLEXES ABNORMAL RHYTHM ECG INTERPRETATION BASED ON A DEFAULT AGE OF 40 YEARS Compared to ECG 10/08/2020 02:18:49 ST (T wave) deviation no longer present Electronically Signed On 10-08-2020 18:33:28 CHERRY DIPPER by Juan Horne M.D. [id number]
[2020-10-08 03:38] LABS: Basophils % 0.4 %; Eosinophils # 0.2 10^3/uL (0.0-0.8); Hematocrit 30.2 % (37.0-47.0); Lymphocytes # 1.5 10^3/uL (0.8-4.8); Lymphocytes % 14.7 %; Mean Corpuscular HGB Conc 29.8 g/dL (30.0-36.0); Mean Corpuscular Hemoglobin 26.9 pg (28.0-34.0); Mean Corpuscular Volume 90.1 fL (81-99); Mean Platelet Volume 10.3 fL (7.4-10.4); Monocytes # 0.5 10^3/uL (0.2-0.9); Monocytes % 5.1 %; Neutrophils # 7.88 10^3/uL (1.8-7.7); Neutrophils % 76.6 %; Nucleated Red Blood Cells % 0 %; Platelet Count 438 10^3/cmm (130-400); Red Blood Count 3.35 10^6/uL (4.1-5.3); Red Cell Distribution Width 14.3 % (12.1-15.1); White Blood Count 10.3 10^3/uL (4.0-10.0)
[2020-10-08 03:51] LABS: INR 1.04 (0.8-1.2)
[2020-10-08 03:58] LABS: Bilirubin Urine Neg (Negative); Blood Urine 2+ (Negative); Glucose Urine UA Norm (Normal); Ketones Urine Negative (Negative); Leukocyte Esterase Urine 2+ (Negative); Nitrate Urine Positive (Negative); Protein Urine Trace (Negative); Specific Gravity, Urine 1.005 (1.005-1.030); Urine Appearance Cloudy (CLEAR); Urine Color Yellow (Yellow); Urobilinogen Urine Norm (Negative); pH Urine 5 (5-7)
[2020-10-08 03:59] LABS: Bacteria Urine 2+ /hpf; Squamous Epithelial Cell Urine 0-4 /hpf (0-5); WBC Urine TOO NUMEROUS TO CNT /hpf (0-5)
[2020-10-08 04:00] LABS: Add Urine Culture? Yes; RBC Urine 0-4 /hpf (0-2)
[2020-10-08 04:03] LABS: Alanine Aminotransferase 9 U/L (0-33); Albumin Level 3.3 g/dL (3.5-5.2); Alkaline Phosphatase 128 IU/L (35-105); Aspartate Amino Transferase 7 U/L (0-32); Blood Urea Nitrogen 13 mg/dL (8-23); Calcium 9.1 mg/dL (8.5-10.5); Carbon Dioxide 21 mmol/L (22-29); Chloride 103 mmol/L (98-107); Globulin 2.3 g/dL (1.3-4.6); Glucose 122 mg/dL (65-115); Magnesium 1.4 mg/dL (1.7-2.3); Osmolality Calculated 291 mOsm/kg (285-295); Sodium 140 mmol/L (136-145); Total Bilirubin 0.2 mg/dL (0.15-1.2); Total Protein 5.6 g/dL (6.6-8.7)
[2020-10-08 04:04] LABS: Troponin(5th) Baseline 48 ng/L (0-10)
[2020-10-08] MEDS: cefTRIAXone 2,000 MG in sodium chloride 0.9% (plus) 50 ML 100 MG IV (04:16)
[2020-10-08] MEDS: magnesium sulfate premix 2 GM/50 ML PIGGYBACK IV (05:22)
--- NOTE | 2020-10-08 05:26 | PC.NURSE ---
daughter at bedside. Calling longterm to arrange roller picker and transport back to [facility]
--- NOTE | 2020-10-08 05:44 | PC.NURSE ---
Daughter called assisted, attempting to make arrangements to return. Per daughter. [place] van is not running. will make arrangement with [employer].
[2020-10-08 05:50] LABS: Troponin 5 2HR 51.06 ng/L (0-10); Troponin 5 2HR Delta 3.06 ABS# (0-10)
--- NOTE | 2020-10-08 06:59 | PC.NURSE ---
Report to TRE Mason
== END 2020-10-08 07:31 | disposition home or self-care (01) ==
PROVIDERS: Emergency Provider Emergency Medicine; PCP Family Medicine
DX: G40.89 Other seizures (principal); E83.42 Hypomagnesemia; N39.0 Urinary tract infection, site not specified; Z79.4 Long term (current) use of insulin; F03.90 Unspecified dementia, unspecified severity, without behavioral disturbance, psychotic disturbance, mood disturbance, and anxiety; E78.5 Hyperlipidemia, unspecified; I10 Essential (primary) hypertension; E11.40 Type 2 diabetes mellitus with diabetic neuropathy, unspecified
CPT/HCPCS: 12345; 36415; 51701; 70450; 71045; 72170; 80053; 81001; 83735; 84484; 85025; 85610; 87077; 87086; 87186; 93005; 96365; 96367; 96368; 99284; J0696; J1953; J3475; J7030

== ENCOUNTER 2021-04-01 14:17 | Emergency (ER) | payer MEDICARE, MEDICAID, SELFPAY ==
[2021-04-01 14:23] VITALS: BP 168/85; PULSE 72; RESP 14; TEMP 36.6; O2SAT 97
--- NOTE | 2021-04-01 14:30 | XR_ITS ---
WS: [id number] PORTABLE CHEST HISTORY: dyspnea/cough COMPARISON: 10/08/2020 [facility] shunt catheter over the RIGHT thorax. Mild elevation of the LEFT hemidiaphragm. Dense consolidation posterior to the LEFT heart. Patient miguel s a known intrathoracic stomach which is probably causing this area of dense consolidation. Atelectas is at the LEFT lung base. Mild thickening of the interstitium secondary to edema. Cardiac size: Normal. Mediastinum/Aorta: Moderate atherosclerosis aorta. No osseous abnormality seen. XR/XR chest 1V portable [id number] IMPRESSION: 1. Dense consolidation posterior to the LEFT heart and at the LEFT lung base. Patient has a known intrathoracic stomach which could be causing this dense con solidation. 2. Subsegmental atelectasis LEFT costophrenic angle. 3. Mild interstitial edema.
--- NOTE | 2021-04-01 14:31 | ECG_ITS ---
[facility] Test Date: 2021-04-01 Pat Name: Ladonna Linder Department: Room: Gender: Female Aboriginal Community Council Member: : 1940 Requested By: Leon Lenz Order Number: [id number] Reinaldo MD: May Cruz M.D. Measurements Intervals [place] Rate: 66 P: 28 HI: 138 QRS: -11 QRSD: 82 T: 15 QT: 416 QTc: 437 Interpretive Statements SINUS RHYTHM WITH SINUS ARRHYTHMIA NONSPECIFIC T-WAVE ABNORMALITY Compared to ECG 10/08/2020 03:42:39 T-wave abnormality now present Electronically Signed On 04-02-2021 23:01:04 CDT by May Cruz M.D. [id number]
--- NOTE | 2021-04-01 14:31 | CT_ITS ---
WS: [id number] CT HEAD NONCONTRAST HISTORY: ams TECHNIQUE: Contiguous axial imaging performed through the brain in 2.5 mm imaging. Bone and soft tiss ue windows. Sagittal and coronal reformats reviewed. All CT scans at [facility] use at ast one of these dose optimization techniques: automated exposure control; mA and/or kV adjustment pe r patient size (includes targeted exams where dose is matched to clinical indication); or iterative r econstruction. DLP: 980.38 mGy.cm COMPARISON: 10/08/2020 and 08/12/2019 No acute intracranial hemorrhage, midline shift or mass effect. There is mild increased CSF over the cerebral convexities bilaterally which is been present on prior studies. Probably related to atrophy. No acute blood products or hemorrhage. There is mild to moderat e chronic microvascular ischemic type changes in the white matter with numerous small lacunar infarct s in the basal ganglia. NETWORK PROJECT MANAGER shunt catheter enters through the RIGHT parietal bone with tip crossing th e midline to terminate in the anterior LEFT lateral ventricle. Ventricles: No change in size of the ventricles. Paranasal sinuses: Small mucous retention cyst in the floor the LEFT maxillary sinus. Mastoid air cells: Well pneumatized. Calvarium and scalp: Skull is intact with no soft tissue edema or swelling. CT/CT head wo con* [id number] IMPRESSION: 1. Stable noncontrast head CT. 2. NETWORK PROJECT MANAGER shunt catheter unchanged in position with no hydrocephalus. 3. Atrophy with chronic ischemic changes and prior lacunar. No interval progre ssion.
--- NOTE | 2021-04-01 14:35 | W.ED.AMS ---
HPI - Altered Mental Status General: Chief Complaint: Altered Mental Status Stated Complaint: ALOC Time Seen by Provider: 04/01/21 14:30 History of Present Illness: HPI narrative: 80-year-old female Presents to the emergency room with altered mental status from the longterm. She did take her medicines earlier today.She is nonverbal. She is difficult to arouse will respond to painful stimuli with a grimace but nothing else she does not open her eyes does not make any sounds.There is no reported fever. She has baseline severe dementia. MD complaint: altered mental status and confusion Onset (ago): minute(s) Timing confirmed by: caregiver Severity: severe Consistency of symptoms: Getting Worse Context: other (Underlying dementia) Review of Systems General: Reports: ROS unobtainable due to medical condition and ROS unobtainable due to mental status PFS ED PFSH: Medical History Atherosclerosis of coronary artery Dementia Diabetes mellitus GERD (gastroesophageal reflux disease) GI bleed Hiatal hernia History of pulmonary embolism Hyperlipidemia Hypertension Neuropathy OCD (obsessive compulsive disorder) S/P ORIF (open reduction internal fixation) fracture right humerous Family History Mother Cancer CAD (coronary artery disease) Myocardial infarction Stroke Diabetes Hypertension Father CAD (coronary artery disease) Myocardial infarction Sister Diabetes Grandmother Diabetes Social History Smoking and tobacco status: never smoked Physical Exam Const: COMMON NORMALS: no acute distress GENERAL APPEARANCE: cooperative and comfortable HENMT: COMMON NORMALS: normocephalic, atraumatic, external ears normal, EAC's normal, TM's normal bilaterally, Normal nasal mucous membranes and turbinates present, moist oral mucous membranes and oropharynx normal HEAD & SCALP: normocephalic and atraumatic NOSE: Normal nasal mucous membranes and turbinates present EXTERNAL EAR: Yes external ears normal EXTERNAL AUDITORY CANAL: EAC's normal TYMPANIC MEMBRANE: TM's normal bilaterally Eye: COMMON NORMALS: Equal, round and reactive pupils present, conjunctivae normal and no scleral icterus CONJUNCTIVA: Yes conjunctivae normal PUPIL: Yes Equal, round and reactive pupils present Neck/C-Spine: COMMON NORMALS: full ROM, no lymphadenopathy, supple and no JVD Lymph: LYMPHATIC: no lymphadenopathy noted and no lymphedema noted Resp: COMMON NORMALS: normal respiratory effort, No retractions, No use of accessory muscles and clear to auscultation bilaterally AUSCULTATION: clear to auscultation bilaterally Cardio: COMMON NORMALS: no JVD, regular rate, regular rhythm and No murmurs present (Cardio) RATE: regular rate RHYTHM: regular rhythm GI: COMMON NORMALS: Soft to palpation and No hepatosplenomegaly present AUSCULTATION: Yes normoactive bowel sounds PALPATION: Yes Soft to palpation, No Tenderness to palpation present (GI), No Guarding due to palpation present (GI) and Yes No hepatosplenomegaly present Extremity: COMMON NORMALS: normal to inspection, capillary refill normal, no clubbing, cyanosis or edema, no calf tenderness and no pedal edema Skin: COMMON NORMALS: no rashes or lesions noted GENERAL SKIN EXAM: no rashes or lesions noted Course Vital Signs: Vital signs: Vital Signs Temperature 97.9 F 04/01/21 14:23 Pulse Rate 69 04/01/21 18:43 Respiratory Rate 18 04/01/21 18:43 Blood Pressure 159/82 04/01/21 18:43 Pulse Oximetry 97 04/01/21 18:43 MDM - Altered Mental Status MDM Narrative: Medical decision making narrative: After time patient improved became more responsive answering questions. She is on Xanax as well as clozapine. Suspect that this played a role in her symptoms in conjunction with her dementia. She appears to be at baseline there is no sign of infection at this point. Her BUN is slightly elevated encourage fluid intake. Her vital signs are stable discharge her back to the longterm. Lab Data: Labs: Lab Results 04/01/21 04/01/21 04/01/21 Range/Units 14:47 15:04 15:04 WBC 8.7 (4.0-10.0) 10^3/ uL RBC 3.27 L (4.1-5.3) 10^6/u L Hgb 9.4 L (11.5-15.3) g/dL Hct 30.0 L (37.0-47.0) % MCV 91.7 (81-99) fL MCH 28.7 (28.0-34.0) pg MCHC 31.3 (30.0-36.0) g/dL RDW 14.0 (12.1-15.1) % Plt Count 318 (130-400) 10^3/c mm MPV 10.9 H (7.4-10.4) fL Neut % (Auto) 71.0 % Lymph % (Auto) 19.8 % [place] % (Auto) 6.3 % Eos % (Auto) 2.2 % Baso % (Auto) 0.5 % Neut # (Auto) 6.19 (1.8-7.7) 10^3/u L Lymph # (Auto) 1.7 (0.8-4.8) 10^3/u L [place] # (Auto) 0.6 (0.2-0.9) 10^3/u L Eos # (Auto) 0.2 (0.0-0.8) 10^3/u L Baso # (Auto) 0.0 (0.0-0.1) 10^3/u L Nucleated RBC % (a uto) 0 % Nucleated RBCs # 0.0 /100WBC Specimen Type Arterial Sample Site Radial, left ABG pH 7.46 H (7.35-7.45) ABG pCO2 37.9 (35-45) mmHg ABG pO2 81.3 (80.0-100.0) mmH g ABG HCO3 27.1 H (22-26) mmol/L ABG O2 Saturation 97.0 ABG Base Excess 3.1 H (-2.0-2.0) mmol/ L Ángel Test Pos A-a O2 Gradient 2.6 L (5-10) mmHg Hematocrit 29.2 L (37-47) % Hgb O2 Saturation 95.1 (95-100) % Carboxyhemoglobin 1.0 (0.4-20.1) %THgb Methemoglobin 1.0 (0.4-1.5) % Total Hemoglobin 9.5 L (12-16) g/dL Sodium 144.0 H (131-143) mmol/L Potassium 3.8 (3.5-5.0) mmol/L Glucose 127.0 H (70-115) mg/dL Ionized Calcium 1.2 (1.1-1.4) mmol/L O2 Delivery Device Room air Case Manager Specialist ID jmn Chloride (98-107) mmol/L Carbon Dioxide (22-29) mmol/L Anion Gap (5-19) BUN (8-23) mg/dL Creatinine (0.5-0.9) mg/dL GFR Calculation Calculated Osmolal ity (285-295) mOsm/k g Lactic Acid 0.8 (0.5-2.2) mmol/L Calcium (8.5-10.5) mg/dL Magnesium (1.7-2.3) mg/dL Total Bilirubin (0.15-1.2) mg/dL AST (0-32) U/L ALT (0-33) U/L Alkaline Phosphata se (35-105) IU/L Creatine Kinase (26-192) U/L Troponin T Baselin e (0-10) ng/L Troponin T 120 Min [place] (0-10) ng/L Delta Troponin T (0-10) ABS# Total Protein (6.6-8.7) g/dL Albumin (3.5-5.2) g/dL Globulin (1.3-4.6) g/dL Lipase (13-60) U/L Urine Color (Yellow) Urine Appearance (CLEAR) Urine pH (5-7) Ur Specific Gravit y (1.005-1.030) Urine Protein (Negative) Urine Glucose (UA) (Normal) Urine Ketones (Negative) Urine Blood (Negative) Urine Nitrate (Negative) Urine Bilirubin (Negative) Urine Urobilinogen (Negative) mg/dL Ur Leukocyte Skyla ase (Negative) Urine RBC (0-2) /hpf Urine WBC (0-5) /hpf Ur Squamous Epith Cells (0-5) /hpf Amorphous Sediment Urine Bacteria (NONE) /hpf Serum Ketones (Negative) 04/01/21 04/01/21 04/01/21 Range/Units 15:04 15:04 15:04 WBC (4.0-10.0) 10^3/ uL RBC (4.1-5.3) 10^6/u L Hgb (11.5-15.3) g/dL Hct (37.0-47.0) % MCV (81-99) fL MCH (28.0-34.0) pg MCHC (30.0-36.0) g/dL RDW (12.1-15.1) % Plt Count (130-400) 10^3/c mm MPV (7.4-10.4) fL Neut % (Auto) % Lymph % (Auto) % [place] % (Auto) % Eos % (Auto) % Baso % (Auto) % Neut # (Auto) (1.8-7.7) 10^3/u L Lymph # (Auto) (0.8-4.8) 10^3/u L [place] # (Auto) (0.2-0.9) 10^3/u L Eos # (Auto) (0.0-0.8) 10^3/u L Baso # (Auto) (0.0-0.1) 10^3/u L Nucleated RBC % (a uto) % Nucleated RBCs # /100WBC Specimen Type Sample Site ABG pH (7.35-7.45) ABG pCO2 (35-45) mmHg ABG pO2 (80.0-100.0) mmH g ABG HCO3 (22-26) mmol/L ABG O2 Saturation ABG Base Excess (-2.0-2.0) mmol/ L Ángel Test A-a O2 Gradient (5-10) mmHg Hematocrit (37-47) % Hgb O2 Saturation (95-100) % Carboxyhemoglobin (0.4-20.1) %THgb Methemoglobin (0.4-1.5) % Total Hemoglobin (12-16) g/dL Sodium 140 (131-143) mmol/L Potassium 3.8 (3.5-5.0) mmol/L Glucose 124 H (70-115) mg/dL Ionized Calcium (1.1-1.4) mmol/L O2 Delivery Device Case Manager Specialist ID Chloride 105 (98-107) mmol/L Carbon Dioxide 25 (22-29) mmol/L Anion Gap 13.8 (5-19) BUN 26 H (8-23) mg/dL Creatinine 1.0 H (0.5-0.9) mg/dL GFR Calculation Not Reportable Calculated Osmolal ity 296 H (285-295) mOsm/k g Lactic Acid (0.5-2.2) mmol/L Calcium 8.7 (8.5-10.5) mg/dL Magnesium 1.7 (1.7-2.3) mg/dL Total Bilirubin 0.2 (0.15-1.2) mg/dL AST 7 (0-32) U/L ALT 6 (0-33) U/L Alkaline Phosphata se 87 (35-105) IU/L Creatine Kinase 26 (26-192) U/L Troponin T Baselin e 32 H (0-10) ng/L Troponin T 120 Min [place] (0-10) ng/L Delta Troponin T (0-10) ABS# Total Protein 5.8 L (6.6-8.7) g/dL Albumin 3.7 (3.5-5.2) g/dL Globulin 2.1 (1.3-4.6) g/dL Lipase 11 L (13-60) U/L Urine Color (Yellow) Urine Appearance (CLEAR) Urine pH (5-7) Ur Specific Gravit y (1.005-1.030) Urine Protein (Negative) Urine Glucose (UA) (Normal) Urine Ketones (Negative) Urine Blood (Negative) Urine Nitrate (Negative) Urine Bilirubin (Negative) Urine Urobilinogen (Negative) mg/dL Ur Leukocyte Skyla ase (Negative) Urine RBC (0-2) /hpf Urine WBC (0-5) /hpf Ur Squamous Epith Cells (0-5) /hpf Amorphous Sediment Urine Bacteria (NONE) /hpf Serum Ketones Negative (Negative) 04/01/21 04/01/21 Range/Units 15:14 16:52 WBC (4.0-10.0) 10^3/ uL RBC (4.1-5.3) 10^6/u L Hgb (11.5-15.3) g/dL Hct (37.0-47.0) % MCV (81-99) fL MCH (28.0-34.0) pg MCHC (30.0-36.0) g/dL RDW (12.1-15.1) % Plt Count (130-400) 10^3/c mm MPV (7.4-10.4) fL Neut % (Auto) % Lymph % (Auto) % [place] % (Auto) % Eos % (Auto) % Baso % (Auto) % Neut # (Auto) (1.8-7.7) 10^3/u L Lymph # (Auto) (0.8-4.8) 10^3/u L [place] # (Auto) (0.2-0.9) 10^3/u L Eos # (Auto) (0.0-0.8) 10^3/u L Baso # (Auto) (0.0-0.1) 10^3/u L Nucleated RBC % (a uto) % Nucleated RBCs # /100WBC Specimen Type Sample Site ABG pH (7.35-7.45) ABG pCO2 (35-45) mmHg ABG pO2 (80.0-100.0) mmH g ABG HCO3 (22-26) mmol/L ABG O2 Saturation ABG Base Excess (-2.0-2.0) mmol/ L Ángel Test A-a O2 Gradient (5-10) mmHg Hematocrit (37-47) % Hgb O2 Saturation (95-100) % Carboxyhemoglobin (0.4-20.1) %THgb Methemoglobin (0.4-1.5) % Total Hemoglobin (12-16) g/dL Sodium (131-143) mmol/L Potassium (3.5-5.0) mmol/L Glucose (70-115) mg/dL Ionized Calcium (1.1-1.4) mmol/L O2 Delivery Device Case Manager Specialist ID Chloride (98-107) mmol/L Carbon Dioxide (22-29) mmol/L Anion Gap (5-19) BUN (8-23) mg/dL Creatinine (0.5-0.9) mg/dL GFR Calculation Calculated Osmolal ity (285-295) mOsm/k g Lactic Acid (0.5-2.2) mmol/L Calcium (8.5-10.5) mg/dL Magnesium (1.7-2.3) mg/dL Total Bilirubin (0.15-1.2) mg/dL AST (0-32) U/L ALT (0-33) U/L Alkaline Phosphata se (35-105) IU/L Creatine Kinase (26-192) U/L Troponin T Baselin e (0-10) ng/L Troponin T 120 Min [place] 32.75 H (0-10) ng/L Delta Troponin T 0.75 (0-10) ABS# Total Protein (6.6-8.7) g/dL Albumin (3.5-5.2) g/dL Globulin (1.3-4.6) g/dL Lipase (13-60) U/L Urine Color Yellow (Yellow) Urine Appearance Clear (CLEAR) Urine pH 5 (5-7) Ur Specific Gravit y 1.020 (1.005-1.030) Urine Protein Trace (Negative) Urine Glucose (UA) Trace H (Normal) Urine Ketones Negative (Negative) Urine Blood Neg (Negative) Urine Nitrate Negative (Negative) Urine Bilirubin 1+ H (Negative) Urine Urobilinogen Norm (Negative) mg/dL Ur Leukocyte Skyla ase Negative (Negative) Urine RBC 0-4 H (0-2) /hpf Urine WBC 0-4 H (0-5) /hpf Ur Squamous Epith Cells 5-10 H (0-5) /hpf Amorphous Sediment Not Reportable Urine Bacteria 1+ H (NONE) /hpf Serum Ketones (Negative) Discharge Plan Discharge Patient Disposition: Home Clinical Impression: Delirium due to general medical condition, Dementia Condition: Stable Prescriptions: No Action metoprolol succinate 25 mg tablet extended release 24 hr 12.5 mg PO DAILY@08 RF: 0 acetaminophen [Tylenol] 325 mg tablet 650 mg PO Q4H PRN (Reason: Pain) RF: 0 alprazolam 0.25 mg tablet 0.25 mg PO BID@08,20 RF: 0 amantadine HCl 100 mg capsule 100 mg PO BID@08,20 RF: 0 clozapine 50 mg tablet 50 mg PO DAILY@08 RF: 0 polyethylene glycol 3350 [Miralax] 17 gram powder in packet 17 gm PO DAILY@08 RF: 0 senna 8.6 mg capsule 8.6 mg PO DAILY@08 RF: 0 vitamin B complex [B Complex-Vitamin B12] Tablet 1 tab PO DAILY@08 RF: 0 Latuda 40 mg tablet 40 mg PO DAILY@18 RF: 0 polyvinyl alcohol [Artificial Tears (polyvin alc)] 1.4 % Drops 1 drp OPHTHALMIC (EYE) QID RF: 0 sertraline 100 mg Tablet 100 mg PO DAILY@08 RF: 0 magnesium hydroxide [Milk of Magnesia] 400 mg/5 mL Suspension 30 ml PO DAILY PRN (Reason: Constipation) RF: 0 bisacodyl 10 mg Suppository 10 mg [place] DAILY PRN (Reason: Constipation) RF: 0 Enema 19-7 gram/118 mL Enema 118 ml [place] DAILY PRN (Reason: Constipation) RF: 0 cranberry 400 mg Capsule 400 mg PO BID@08,20 RF: 0 estradiol [Estrace] 0.01 % (0.1 mg/gram) Cream 1 g VAGINAL .TWICE A WEEK RF: 0 Protonix 20 mg Tablet,Delayed Release (Dr/Ec) 20 mg PO BID@06,16 RF: 0 levothyroxine 75 mcg tablet 75 mcg PO DAILY@06 RF: 0 Xanax 0.25 mg Tablet 0.25 mg PO BID PRN (Reason: Anxiety) RF: 0 pravastatin 10 mg Tablet 10 mg PO DAILY@20 RF: 0 clozapine 200 mg Tablet 200 mg PO DAILY@20 RF: 0 TwoCal HN 0.08-2 gram-kcal/mL Liquid 1 ea PO TID RF: 0 Keppra 500 mg tablet 500 mg PO BID@08,20 RF: 0 metformin 500 mg tablet 500 mg PO BID@07,17 RF: 0 mirtazapine 15 mg Tablet 15 mg PO BEDTIME@20 RF: 0 Discharge Orders: Discharge ED (Routine); Ordered 04/01/21 Ordered By: Leon Cade Referrals: Edwardo Carranza Jr, MD [Primary Care Provider] - Discharge Diet: Usual diet Discharge Activity: Resume usual activity Patient Instructions: Opioid Safety Coding Level of Care Code ED Registered Nurse Cardiac Telemetry for Darren Garcia
[2021-04-01 14:53] VITALS: BP 188/87; PULSE 71; RESP 16; O2SAT 99
[2021-04-01 14:58] LABS: ABG PCO2 37.9 mmHg (35-45); ABG PH Result 7.46 (7.35-7.45); Alveolar-Arterial Oxygen Gradi 2.6 mmHg (5-10); Arterial Blood Gas Hematocrit 29.2 % (37-47); Base Excess ABG 3.1 mmol/L (-2.0-2.0); Blood Gas Allen Test Pos; Blood Gas Sample Site Radial, left; Blood Gas Sample Type Arterial; HCO3 ABG 27.1 mmol/L (22-26); HGB O2 Sat 95.1 % (95-100); Ionized Calcium Level - ABG 1.2 mmol/L (1.1-1.4); Oxygen Device ROOM AIR; PO2 ABG 81.3 mmHg (80.0-100.0); Potassium Level - ABG 3.8 mmol/L (3.5-5.0); Total Hemoglobin 9.5 g/dL (12-16)
[2021-04-01 15:04] VITALS: BP 165/98
[2021-04-01 15:19] LABS: Basophils % 0.5 %; Eosinophils # 0.2 10^3/uL (0.0-0.8); Eosinophils % 2.2 %; Hemoglobin 9.4 g/dL (11.5-15.3); Lymphocytes # 1.7 10^3/uL (0.8-4.8); Lymphocytes % 19.8 %; Mean Corpuscular HGB Conc 31.3 g/dL (30.0-36.0); Mean Corpuscular Hemoglobin 28.7 pg (28.0-34.0); Mean Corpuscular Volume 91.7 fL (81-99); Mean Platelet Volume 10.9 fL (7.4-10.4); Monocytes # 0.6 10^3/uL (0.2-0.9); Monocytes % 6.3 %; Neutrophils # 6.19 10^3/uL (1.8-7.7); Nucleated Red Blood Cells % 0 %; Platelet Count 318 10^3/cmm (130-400); Red Blood Count 3.27 10^6/uL (4.1-5.3); White Blood Count 8.7 10^3/uL (4.0-10.0)
[2021-04-01 15:24] LABS: Add Urine Microscopic? YES; Bilirubin Urine 1+ (Negative); Blood Urine Neg (Negative); Glucose Urine UA Trace (Normal); Ketones Urine Negative (Negative); Leukocyte Esterase Urine Negative (Negative); Nitrate Urine Negative (Negative); Protein Urine Trace (Negative); Urine Appearance Clear (CLEAR); Urine Color Yellow (Yellow); Urobilinogen Urine Norm (Negative); pH Urine 5 (5-7)
[2021-04-01 15:39] LABS: Lactic Sepsis W/Reflex 0.8 mmol/L (0.5-2.2)
[2021-04-01 15:40] LABS: Alanine Aminotransferase 6 U/L (0-33); Albumin Level 3.7 g/dL (3.5-5.2); Alkaline Phosphatase 87 IU/L (35-105); Aspartate Amino Transferase 7 U/L (0-32); Blood Urea Nitrogen 26 mg/dL (8-23); Calcium 8.7 mg/dL (8.5-10.5); Carbon Dioxide 25 mmol/L (22-29); Chloride 105 mmol/L (98-107); Creatine Phosphokinase 26 U/L (26-192); Globulin 2.1 g/dL (1.3-4.6); Glucose 124 mg/dL (65-115); Lipase 11 U/L (13-60); Magnesium 1.7 mg/dL (1.7-2.3); Osmolality Calculated 296 mOsm/kg (285-295); Sodium 140 mmol/L (136-145); Total Bilirubin 0.2 mg/dL (0.15-1.2); Total Protein 5.8 g/dL (6.6-8.7)
[2021-04-01 15:42] LABS: Add Urine Culture? No; Bacteria Urine 1+ /hpf; RBC Urine 0-4 /hpf (0-2); WBC Urine 0-4 /hpf (0-5)
[2021-04-01 15:42] LABS: Troponin(5th) Baseline 32 ng/L (0-10)
[2021-04-01 15:44] LABS: Anion Gap 13.8 (5-19); Potassium 3.8 mmol/L (3.5-5.1)
[2021-04-01 15:55] LABS: Ketone (Acetest) Serum Negative (Negative)
[2021-04-01 16:10] VITALS: BP 161/103; PULSE 70; RESP 16; O2SAT 99
[2021-04-01 17:00] VITALS: BP 174/87; PULSE 77; RESP 18; O2SAT 96
[2021-04-01 17:17] LABS: Troponin 5 2HR 32.75 ng/L (0-10); Troponin 5 2HR Delta 0.75 ABS# (0-10)
--- NOTE | 2021-04-01 17:58 | PC.NURSE ---
patient is more awake and alert, denied any pain, no acute distress noted at this time.
[2021-04-01 18:43] VITALS: BP 159/82; PULSE 69; RESP 18; O2SAT 97
== END 2021-04-01 22:12 | disposition home or self-care (01) ==
PROVIDERS: Emergency Provider Family Medicine; PCP Family Medicine
DX: F03.90 Unspecified dementia, unspecified severity, without behavioral disturbance, psychotic disturbance, mood disturbance, and anxiety (principal); F05 Delirium due to known physiological condition; Z79.84 Long term (current) use of oral hypoglycemic drugs; I25.10 Atherosclerotic heart disease of native coronary artery without angina pectoris; E78.5 Hyperlipidemia, unspecified; Z86.711 Personal history of pulmonary embolism; I10 Essential (primary) hypertension; E11.40 Type 2 diabetes mellitus with diabetic neuropathy, unspecified
CPT/HCPCS: 36415; 36600; 70450; 71045; 80051; 80053; 81001; 82009; 82330; 82550; 82805; 83605; 83690; 83735; 84484; 85025; 93005; 99284

== ENCOUNTER 2021-09-10 19:41 | Inpatient (IN) | payer MEDICARE, MEDICAID, SELFPAY ==
[2021-09-10 19:49] VITALS: BP 172/100; PULSE 105; RESP 18; TEMP 36.8; O2SAT 94; BMI 26.5
--- NOTE | 2021-09-10 19:52 | ECG_ITS ---
[facility] Test Date: 2021-09-10 Pat Name: Ladonna Linder Department: Room: Gender: Female Security Specialist: : [id number] Requested By: Kristen Kang Order Number: [id number] Reinaldo MD: Juan Horne M.D. Measurements Intervals [place] Rate: 103 P: DE: QRS: -1 QRSD: 86 T: -51 QT: 329 QTc: 432 Interpretive Statements Multifocal atrial tachycardia NONSPECIFIC ST & T-WAVE ABNORMALITY ABNORMAL RHYTHM ECG Compared to ECG 04/01/2021 14:37:22 Sinus rhythm no longer present Sinus arrhythmia no longer present T-wave abnormality still present Electronically Signed On 09-10-2021 22:07:18 RN DOCUMENT IMPROVEMENT by Juan Horne M.D. [id number]
--- NOTE | 2021-09-10 19:52 | XRR_ITS ---
PROCEDURE INFORMATION: Exam: XR Chest Exam date and time: 09/10/2021 7:52 PM Age: 81 years old Clinical indication: Dyspnea; Additional info: SOB TECHNIQUE: Imaging protocol: XR of the chest. Views: 1 view. COMPARISON: CR XR chest 1V portable [id number] 04/01/2021 2:33 PM FINDINGS: Tubes, catheters and devices: Ventriculoperitoneal catheter is present. Lungs: Mild coarsening of pulmonary interstitium stable from prior. Pleural spaces: Unremarkable. No pleural effusion. No pneumothorax. Heart/Mediastinum: Large round air lucency in profile with lower mediastinum consistent with a large hiatal hernia with intrathoracic stomach. Moderate cardiac enlargement. Bones/joints: Unremarkable. XR/XR chest 1V portable [id number] IMPRESSION: No focal acute pulmonary disease. Radiation Dose CTDIVOL = (mGy): DLP = (mGy-cm)
--- NOTE | 2021-09-10 19:52 | W.ED.SOB ---
HPI - SOB/Dyspnea General: Chief Complaint: Shortness of Breath/Dyspnea Stated Complaint: RESPIRATORY DISTRESS Time Seen by Provider: 09/10/21 19:48 Source: EMS Mode of arrival: EMS Limitations: altered mental status History of Present Illness: HPI Narrative: 81-year-old female who is here from assisted for increased shortness of breath and cough she does have dementia and is bedbound at baseline per family. Mary states she had increased cough congestion this week starting 3 [address] her on home oxygen she is never required oxygen before she is currently on 3 L does have congestion. She has had fevers there as well. Patient is originally started on Levaquin and she also had a UTI got cultures\Augmentin and she is worsened. Review of Systems General: Reports: ROS unobtainable due to mental status [facility] ED PFSH: Medical History Atherosclerosis of coronary artery Dementia Diabetes mellitus GERD (gastroesophageal reflux disease) GI bleed Hiatal hernia History of pulmonary embolism Hyperlipidemia Hypertension Neuropathy OCD (obsessive compulsive disorder) S/P ORIF (open reduction internal fixation) fracture right humerous Surgical History S/P ORIF (open reduction internal fixation) fracture right humerous Family History Mother Cancer CAD (coronary artery disease) Myocardial infarction Stroke Diabetes Hypertension Father CAD (coronary artery disease) Myocardial infarction Sister Diabetes Grandmother Diabetes Social History Smoking and tobacco status: never smoked Physical Exam Const: COMMON NORMALS: alert; negative for patient oriented x3 GENERAL APPEARANCE: in distress and ill appearing HENMT: COMMON NORMALS: normocephalic and atraumatic HEAD & SCALP: normocephalic and atraumatic Eye: COMMON NORMALS: Equal, round and reactive pupils present and EOMs intact bilaterally PUPIL: Yes Equal, round and reactive pupils present Neck/C-Spine: COMMON NORMALS: full ROM and supple Chest: COMMONS NORMALS: normal inspection of the chest and normal palpation of entire chest wall Resp: COMMON NORMALS: negative for normal respiratory effort EFFORT & INSPECTION: Yes tachypneic and Yes audible wheezes AUSCULTATION: rales Cardio: COMMON NORMALS: regular rate, regular rhythm and No murmurs present (Cardio) RATE: regular rate RHYTHM: regular rhythm GI: COMMON NORMALS: Normal to inspection, nondistended, normoactive bowel sounds present, Soft to palpation, non-tender and no masses PALPATION: Yes Soft to palpation Extremity: COMMON NORMALS: normal to inspection and full ROM Neuro: COMMON NORMALS: moves all extremities and no focal motor deficits; negative for patient oriented x3 SENSORIUM/ORIENTATION: Yes alert Psych: COMMON NORMALS: negative for mental status grossly normal Skin: COMMON NORMALS: no rashes or lesions noted and no wounds GENERAL SKIN EXAM: no rashes or lesions noted Course Vital Signs: Vital signs: Vital Signs Temperature 98.3 F 09/10/21 19:49 Pulse Rate 105 H 09/10/21 19:49 Respiratory Rate 18 09/10/21 19:49 Blood Pressure 172/100 09/10/21 19:49 Pulse Oximetry 94 09/10/21 19:49 MDM - SOB/Dyspnea MDM Narrative: Medical decision making narrative: Patient presents here with dehydration with hyperglycemia hypoxia and weakness. Patient's x-ray here shows no pneumonia unsure exact cause for hypoxia we will get a D-dimer per hospitalist patient's quite dehydrated with hypernatremia patient also has a hyperglycemia given IV fluids and insulin will admit for observation for rehydration. Lab Data: Labs: Lab Results 09/10/21 09/10/21 09/10/21 19:52 20:08 20:11 WBC RBC Hgb Hct MCV MCH MCHC RDW Plt Count MPV Neut % (Auto) Lymph % (Auto) [place] % (Auto) Eos % (Auto) Baso % (Auto) Neut # (Auto) Lymph # (Auto) [place] # (Auto) Eos # (Auto) Baso # (Auto) Nucleated RBC % (a uto) Nucleated RBCs # PT INR D-Dimer Specimen Type Arterial Sample Site Radial, right ABG pH 7.43 (7.35-7.45) ABG pCO2 32.7 mmHg L mmHg (35-45) ABG pO2 67.7 mmHg L mmHg (80.0-100.0) ABG HCO3 21.7 mmol/L L mmo l/L (22-26) ABG Base Excess -2.3 mmol/L L mmo l/L (-2.0-2.0) Ángel Test Pos Hematocrit 25.7 % L % (37-47) Hgb O2 Saturation 92.9 % L % (95-100) Carboxyhemoglobin 1.0 %THgb %THgb (0.4-20.1) Methemoglobin 0.6 % % (0.4-1.5) Total Hemoglobin 8.4 g/dL L g/dL (12-16) O2 Delivery Device Nc O2 Liters/Min 3.0 % % [employer] Defense Art[employer] Officer ID [email or web address] Sodium Potassium Chloride Carbon Dioxide Anion Gap BUN Creatinine GFR Calculation Glucose POC Glucose > 600 mg/dL H* mg /dL (70-110) Calculated Osmolal ity Lactic Acid Calcium Total Bilirubin AST ALT Alkaline Phosphata se NT-Pro-B Natriuret Pep Total Protein Albumin Globulin SARS-CoV-2 Ag (Rap id) Negative (Negative) 09/10/21 09/10/21 09/10/21 21:41 21:41 21:41 WBC 10.4 10^3/uL H 10 ^3/uL (4.0-10.0) RBC 3.14 10^6/uL L 10 ^6/uL (4.1-5.3) Hgb 8.6 g/dL L g/dL (11.5-15.3) Hct 28.5 % L % (37.0-47.0) MCV 90.8 fl fl (81-99) MCH 27.4 pg L pg (28.0-34.0) MCHC 30.2 g/dL g/dL (30.0-36.0) RDW 14.7 % % (12.1-15.1) Plt Count 358 10^3/cmm 10^3 /cmm (130-400) MPV 11.4 fL H fL (7.4-10.4) Neut % (Auto) 85.0 % % Lymph % (Auto) 8.9 % % Boone % (Auto) 3.9 % % Eos % (Auto) 0.5 % % Baso % (Auto) 0.1 % % Neut # (Auto) 8.86 10^3/uL H 10 ^3/uL (1.8-7.7) Lymph # (Auto) 0.9 10^3/uL 10^3/ uL (0.8-4.8) Boone # (Auto) 0.4 10^3/uL 10^3/ uL (0.2-0.9) Eos # (Auto) 0.1 10^3/uL 10^3/ uL (0.0-0.8) Baso # (Auto) 0.0 10^3/uL 10^3/ uL (0.0-0.1) Nucleated RBC % (a uto) 0 % % Nucleated RBCs # 0.0 /100WBC /100W BC PT 14.60 SECONDS SEC ONDS (12.1-14.9) INR 1.11 (0.8-1.2) D-Dimer Specimen Type Sample Site ABG pH ABG pCO2 ABG pO2 ABG HCO3 ABG Base Excess Ángel Test Hematocrit Hgb O2 Saturation Carboxyhemoglobin Methemoglobin Total Hemoglobin O2 Delivery Device O2 Liters/Min [employer] Officer ID Sodium 152 mmol/L H mmol /L (136-145) Potassium 4.1 mmol/L mmol/L (3.5-5.1) Chloride 115 mmol/L H mmol /L (98-107) Carbon Dioxide 20 mmol/L L mmol/ L (22-29) Anion Gap 21.1 H (5-19) BUN 35 mg/dL H mg/dL (8-23) Creatinine 1.3 mg/dL H mg/dL (0.5-0.9) GFR Calculation Not Reportable Glucose 625 mg/dL H* mg/d L (65-115) POC Glucose Calculated Osmolal ity 351 mOsm/kg H mOs m/kg (285-295) Lactic Acid Calcium 8.4 mg/dL L mg/dL (8.5-10.5) Total Bilirubin 0.2 mg/dL mg/dL (0.15-1.2) AST 9 U/L U/L (0-32) ALT 10 U/L U/L (0-33) Alkaline Phosphata se 125 IU/L H IU/L (35-105) NT-Pro-B Natriuret Pep 2059 pg/mL H pg/m L (0-450) Total Protein 6.6 g/dL g/dL (6.6-8.7) Albumin 3.8 g/dL g/dL (3.5-5.2) Globulin 2.8 g/dL g/dL (1.3-4.6) SARS-CoV-2 Ag (Rap id) 09/10/21 09/10/21 21:41 21:41 WBC RBC Hgb Hct MCV MCH MCHC RDW Plt Count MPV Neut % (Auto) Lymph % (Auto) [place] % (Auto) Eos % (Auto) Baso % (Auto) Neut # (Auto) Lymph # (Auto) [place] # (Auto) Eos # (Auto) Baso # (Auto) Nucleated RBC % (a uto) Nucleated RBCs # PT INR D-Dimer 1.35 ug/mIFEU H u g/mIFEU (0-0.59) Specimen Type Sample Site ABG pH ABG pCO2 ABG pO2 ABG HCO3 ABG Base Excess Ángel Test Hematocrit Hgb O2 Saturation Carboxyhemoglobin Methemoglobin Total Hemoglobin O2 Delivery Device O2 Liters/Min [employer] Officer ID Sodium Potassium Chloride Carbon Dioxide Anion Gap BUN Creatinine GFR Calculation Glucose POC Glucose Calculated Osmolal ity Lactic Acid 2.8 mmol/L H mmol /L (0.5-2.2) Calcium Total Bilirubin AST ALT Alkaline Phosphata se NT-Pro-B Natriuret Pep Total Protein Albumin Globulin SARS-CoV-2 Ag (Rap id) EKG Data^: EKG 1: Attestation: I personally reviewed and interpreted this EKG as follows: EKG Interpretation Date: 09/10/21 EKG interpretation time: 20:02 Interpretation: afib hr [address] or t wave abnormalities qrs 86 qtc 389 Discharge Plan Discharge Patient Disposition: Admitted As Inpatient Clinical Impression: Hyperglycemia, Hypernatremia, Dehydration, Hypoxia Condition: Stable Prescriptions: No Action metoprolol succinate 25 mg tablet extended release 24 hr 12.5 mg PO DAILY@08 RF: 0 acetaminophen [Tylenol] 325 mg tablet 650 mg PO Q4H PRN (Reason: Pain) RF: 0 alprazolam 0.25 mg tablet 0.25 mg PO BID@,20 RF: 0 amantadine HCl 100 mg capsule 100 mg PO BID@,20 RF: 0 clozapine 50 mg tablet 50 mg PO DAILY@08 RF: 0 polyethylene glycol 3350 [Miralax] 17 gram powder in packet 17 gm PO DAILY@08 RF: 0 senna 8.6 mg capsule 8.6 mg PO DAILY@08 RF: 0 vitamin B complex [B Complex-Vitamin B12] Tablet 1 tab PO DAILY@08 RF: 0 Latuda 40 mg tablet 40 mg PO DAILY@18 RF: 0 polyvinyl alcohol [Artificial Tears (polyvin alc)] 1.4 % Drops 1 drp OPHTHALMIC (EYE) QID RF: 0 magnesium hydroxide [Milk of Magnesia] 400 mg/5 mL Suspension 30 ml PO DAILY PRN (Reason: Constipation) RF: 0 bisacodyl 10 mg Suppository 10 mg [place] DAILY PRN (Reason: Constipation) RF: 0 Enema 19-7 gram/118 mL Enema 118 ml [place] DAILY PRN (Reason: Constipation) RF: 0 cranberry 400 mg Capsule 400 mg PO BID@08,20 RF: 0 estradiol [Estrace] 0.01 % (0.1 mg/gram) Cream 1 g VAGINAL .TWICE A WEEK RF: 0 Protonix 20 mg Tablet,Delayed Release (Dr/Ec) 20 mg PO BID@06,16 RF: 0 levothyroxine 75 mcg tablet 75 mcg PO DAILY@06 RF: 0 Xanax 0.25 mg Tablet 0.25 mg PO BID PRN (Reason: Anxiety) RF: 0 pravastatin 10 mg Tablet 10 mg PO DAILY@20 RF: 0 clozapine 200 mg Tablet 200 mg PO DAILY@20 RF: 0 TwoCal HN 0.08-2 gram-kcal/mL Liquid 1 ea PO TID RF: 0 Keppra 500 mg tablet 500 mg PO BID@08,20 RF: 0 metformin 500 mg tablet 500 mg PO BID@07,17 RF: 0 mirtazapine 15 mg Tablet 15 mg PO BEDTIME@20 RF: 0 Referrals: Edwardo Carranza Jr, MD [Primary Care Provider] - Coding Level of Care Code ED Celery Packer for Chg Fwd Exam Comprehensive
[2021-09-10 20:18] LABS: ABG PCO2 32.7 mmHg (35-45); ABG PH Result 7.43 (7.35-7.45); Arterial Blood Gas Hematocrit 25.7 % (37-47); Base Excess ABG -2.3 mmol/L (-2.0-2.0); Blood Gas Allen Test Pos; Blood Gas Sample Site Radial, right; Blood Gas Sample Type Arterial; HCO3 ABG 21.7 mmol/L (22-26); HGB O2 Sat 92.9 % (95-100); Methemoglobin 0.6 % (0.4-1.5); Oxygen Device NC; PO2 ABG 67.7 mmHg (80.0-100.0); Total Hemoglobin 8.4 g/dL (12-16)
[2021-09-10 20:19] LABS: Glucose Point of Care > 600 mg/dL (70-110)
[2021-09-10 21:37] LABS: SARS Covid-2 Antigen Negative (Negative)
[2021-09-10] MEDS: sodium chloride 0.9% 1,000 ML 999 ML IV ×2 (21:45→23:38)
[2021-09-10 21:59] LABS: Basophils % 0.1 %; Eosinophils # 0.1 10^3/uL (0.0-0.8); Eosinophils % 0.5 %; Hematocrit 28.5 % (37.0-47.0); Hemoglobin 8.6 g/dL (11.5-15.3); Lymphocytes # 0.9 10^3/uL (0.8-4.8); Lymphocytes % 8.9 %; Mean Corpuscular HGB Conc 30.2 g/dL (30.0-36.0); Mean Corpuscular Hemoglobin 27.4 pg (28.0-34.0); Mean Corpuscular Volume 90.8 fl (81-99); Mean Platelet Volume 11.4 fL (7.4-10.4); Monocytes # 0.4 10^3/uL (0.2-0.9); Monocytes % 3.9 %; Neutrophils # 8.86 10^3/uL (1.8-7.7); Nucleated Red Blood Cells % 0 %; Platelet Count 358 10^3/cmm (130-400); Red Blood Count 3.14 10^6/uL (4.1-5.3); Red Cell Distribution Width 14.7 % (12.1-15.1); White Blood Count 10.4 10^3/uL (4.0-10.0)
[2021-09-10 22:09] LABS: INR 1.11 (0.8-1.2)
[2021-09-10 22:11] LABS: Lactic Sepsis W/Reflex 2.8 mmol/L (0.5-2.2)
[2021-09-10 22:23] LABS: Alanine Aminotransferase 10 U/L (0-33); Albumin Level 3.8 g/dL (3.5-5.2); Alkaline Phosphatase 125 IU/L (35-105); Anion Gap 21.1 (5-19); Aspartate Amino Transferase 9 U/L (0-32); Blood Urea Nitrogen 35 mg/dL (8-23); Calcium 8.4 mg/dL (8.5-10.5); Carbon Dioxide 20 mmol/L (22-29); Chloride 115 mmol/L (98-107); Globulin 2.8 g/dL (1.3-4.6); NT Pro B Type Natriuretic Pept 2059 pg/mL (0-450); Osmolality Calculated 351 mOsm/kg (285-295); Potassium 4.1 mmol/L (3.5-5.1); Sodium 152 mmol/L (136-145); Total Bilirubin 0.2 mg/dL (0.15-1.2); Total Protein 6.6 g/dL (6.6-8.7)
[2021-09-10 22:26] LABS: Glucose 625 mg/dL (65-115)
[2021-09-10 23:09] LABS: D Dimer 1.35 ug/mIFEU (0-0.59)
[2021-09-10 23:33] LABS: Reflex Lactate Order REFLEX LACTIC ORDERD
[2021-09-10] MEDS: insulin regular-human 100 units/1 mL 13 UNIT IVP (23:33)
[2021-09-11] VITALS (7 sets, daily range): BP systolic 99–172; BP diastolic 68–100; PULSE 76–115; RESP 16–20; TEMP 36.6–38.3; O2SAT 90–97; BMI 26.5
--- NOTE | 2021-09-11 00:30 | P.HP_ITS ---
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 She has had Tmax 100.6- 100.7 F at [facility]. Has been diagnosed with pneumonia and UTI and treated for both with abx without improvement. Significant labs today include hyperglycemia with blood sugar 625, hypernatremia,elevated lactate. Patient is non verbal, essentially bed bound. Past h/o PE+, taken off a/c 3 years ago due to recurrent GI bleeding. vaccinated for covid 19 with 2 dose series, uncertain if also received booster. Reportedly tested negative at [facility]. Negative rapid AG today Review of Systems General: Reports: ROS unobtainable due to mental status Medications/Allergies Home Medications Medication Instructions Recorded Confirmed Last Taken Type acetaminophen 325 mg tablet 650 mg PO Q4H PRN 02/18/20 05/31/21 Unknown History alprazolam 0.25 mg tablet 0.25 mg PO BID@02/18/20 05/31/21 04/01/21 08:00 History amantadine HCl 100 mg capsule 100 mg PO BID@02/18/20 05/31/21 04/01/21 08:00 History clozapine 50 mg tablet 50 mg PO DAILY@02/18/20 05/31/21 04/01/21 08:00 Histo ry lurasidone 40 mg tablet 40 mg PO DAILY@02/18/20 05/31/21 03/31/21 History metoprolol succinate 25 mg 12.5 mg PO DAILY@02/18/20 05/31/21 04/01/21 08:00 History tablet,extended release 24 hr polyethylene glycol 3350 17 gram 17 gm PO DAILY@02/18/20 05/31/21 04/01/21 08:00 History oral powder packet sennosides 8.6 mg capsule 8.6 mg PO DAILY@02/18/20 05/31/21 04/01/21 History vitamin B complex 1 tab PO DAILY@02/18/20 05/31/2111/21 History bisacodyl 10 mg ID DAILY PRN 10/08/20 05/31/21 Unknown History cranberry 400 mg PO BID@10/08/20 05/31/21 04/01/21 08:00 History estradiol [Estrace] 1 g VAGINAL .TWICE A WEEK 10/08/20 05/31/21 03/31/21 History magnesium hydroxide [Milk of 30 ml PO DAILY PRN 10/08/20 05/31/21 Unknown History Magnesia] polyvinyl alcohol [Artificial 1 drp OPHTHALMIC (EYE) QID 10/08/20 05/31/21 04/01/21 History Tears (polyvin alc)] sodium phosphates [Enema] 118 ml ID DAILY PRN 10/08/20 05/31/21 Unknown History alprazolam [Xanax] 0.25 mg PO BID PRN 04/01/21 05/31/21 03/31/21 History clozapine 200 mg PO DAILY@04/01/21 05/31/21 03/31/21 History levetiracetam [Keppra] 500 mg PO BID@04/01/21 05/31/21 04/01/21 08:00 History levothyroxine 75 mcg PO DAILY@04/01/21 05/31/21 04/01/21 History metformin 500 mg PO BID@04/01/21 05/31/21 04/01/21 07:00 History mirtazapine 15 mg PO BEDTIME@04/01/21 05/31/21 03/31/21 History nut.tx,spec.frm,l-fr,iron-fos 1 ea PO TID 04/01/21 05/31/21 Unknown History [TwoCal HN] pantoprazole [Protonix] 20 mg PO BID@,04/01/21 05/31/21 04/01/21 06:00 History pravastatin 10 mg PO DAILY@04/01/21 05/31/21 03/31/21 History Allergies Allergy/AdvReac Type Severity Reaction Status Date / Time Sulfa (Sulfonamide Allergy Unknown Unknown Verified 10/08/20 02:17 Antibiotics) sulfamethoxazole Allergy Unknown Unknown Verified 10/08/20 02:17 [From Bactrim] trimethoprim [From Bactrim] Allergy Unknown Unknown Verified 10/08/20 02:17 PFSH Acute PFSH: Medical History (Updated 09/11/21 @ 06:25 by Kristin Yoon MD) Atherosclerosis of coronary artery COVID-19 Dementia Diabetes mellitus GERD (gastroesophageal reflux disease) GI bleed Hiatal hernia History of pulmonary embolism Hyperlipidemia Hypertension Neuropathy OCD (obsessive compulsive disorder) Surgical History S/P ORIF (open reduction internal fixation) fracture right humerous Family History Mother Cancer CAD (coronary artery disease) Myocardial infarction Stroke Diabetes Hypertension Father CAD (coronary artery disease) Myocardial infarction Sister Diabetes Grandmother Diabetes Social History Smoking and tobacco status: never smoked Vitals/I&O/Wt Last Vital Signs Temp 98.3 F 09/11/21 00:06 Pulse 82 09/11/21 00:06 Resp 16 09/11/21 00:06 BP 172/100 09/11/21 00:06 Pulse Ox 94 09/11/21 00:06 09/10/21 09/10/21 09/11/21 14:59 22:59 06:59 Intake Total 1240 / 1240 Balance 1240 / 1240 Weight last 48 hrs Weight 68.039 kg Weight 68.039 kg Physical Exam Narrative: EXAM NARRATIVE: General:Lying in bed, non verbal, grimces to palpation of abdomen HEENT: PERRLA, pupils bilaterally equal and reactive, pallors not present Chest:B/L conducted breath sounds to auscultation CVS: S1-S2 regular, no murmurs, no tachycardia, no gallops, no rubs Abdomen: Tenderness to palpation, grimaces to touch Ext: No swelling, edema Data : 09/10/21 21:41 09/10/21 21:41 Micro: Microbiology 09/10/21 21:41 Blood Culture - Preliminary Blood SPECIMEN COLLECTED 09/10/21 21:41 Blood Culture - Preliminary Blood SPECIMEN COLLECTED A&P Assessment and plan (1) Hyperglycemia: Status: Acute (2) Hypernatremia: Status: Acute (3) Dehydration: Status: Acute (4) Hypoxia: Status: Acute Additional A&P Information 81F NH resident from memory care unit p/w 3-4 days of cough, possible aspiration episodes,new hypoxia, nausea vomiting and diarrhea. - CXR without gross infiltrates - Abdominal pain, diarrhea and vomiting may be suggestive of colitis- check CT abdomen -empiric abx coverage with zosyn in the interim - blood cx taken and pending - check UA and urine cx givenreported h/o UTI - Insulin 10 U iv now for hyperglycemia, theerter insulin s high dose sliding scale. Patient is known diabetic, currently only on metformin. reportedly taken off insulin ~1 year ago after she lost >90 pounds of weight. unknown last a1c, will check today. recheck CMP - D dimer mildly elevated, however not significantly elevated over previous numbers -LUISA , hypernatremia likely 2/2 dehydration. 1/2 NS @ 75 cc/hr Attestations Medical Necessity Statement*: anticipate >2midnight admission for above defined care Coding Level of Care Code Acute Sagger Soak for g Fwd Diagnoses Hyperglycemia R73.9 Hypernatremia E87.0 Dehydration E86.0 Hypoxia R09.02
[2021-09-11 00:40] LABS: Glucose Point of Care 446 mg/dL (70-110)
[2021-09-11 01:27] LABS: Lactic Acid level (Lactate) 4.4 mmol/L (0.5-2.2)
--- NOTE | 2021-09-11 06:11 | CTR_ITS ---
PROCEDURE INFORMATION: Exam: CT Abdomen And Pelvis Without Contrast Exam date and time: 09/11/2021 6:11 AM Age: 81 years old Clinical indication: Other: Diarrhea, vomiting, evalute for colitis TECHNIQUE: Imaging protocol: Computed tomography of the abdomen and pelvis without contrast. Radiation optimization: All CT scans at this facility use at least one of these dose optimization techniques: automated exposure control; mA and/or kV adjustment per patient size (includes targeted exams where dose is matched to clinical indication); or iterative reconstruction. COMPARISON: CT abdomen pelvis w con* [id number] 07/16/2019 12:48 AM RADIATION DOSE METRICS: Total DLP (mGy-cm): 985.61 FINDINGS: Tubes, catheters and devices: Stable right-sided ventriculoperitoneal shunt catheter. Diaphragm: Stable large intrathoracic hiatal hernia. Liver: Normal. No mass. Gallbladder and bile ducts: Stable gallstone in the gallbladder. Pancreas: Normal. No ductal dilation. Spleen: Normal. No splenomegaly. Adrenal glands: Normal. No mass. 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 Stomach and bowel: Moderate retained feces without radiographic colitis. Appendix: No evidence of appendicitis. Intraperitoneal space: Unremarkable. No free air. No significant fluid collection. Vasculature: Calcification of the abdominal aorta and/or iliac arteries consistent with atherosclerotic vessel disease. One or more calcified pelvic phleboliths. Lymph nodes: Unremarkable. No enlarged lymph nodes. Urinary bladder: Unremarkable as visualized. Reproductive: Unremarkable as visualized. Bones/joints: Idiopathic S-shaped scoliosis. Grade 1 anterior non-spondylitic spondylolisthesis of L4 on L5 with central spinal stenosis and prominent facet degenerative changes. Multilevel central spinal stenosis. Soft tissues: Unremarkable. CT/CT abdomen pelvis con [id number] IMPRESSION: 1. Stable large intrathoracic hiatal hernia. 2. Stable gallstone in the gallbladder. 3. 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 4. Moderate retained feces without radiographic colitis. Radiation Dose CTDIVOL = (mGy): DLP = 985.61 (mGy-cm)
[2021-09-11 06:13] LABS: Glucose Point of Care 405 mg/dL (70-110)
[2021-09-11] MEDS: insulin regular-human 10 UNIT in SYRINGE 1 EACH IVP (06:30)
[2021-09-11] MEDS: sodium chloride 0.45% 1,000 ML 75 ML IV ×2 (06:41→13:55)
[2021-09-11] MEDS: piperacillin-tazobactam 3.375 GM in sodium chloride 0.9% (plus) 50 ML IV ×3 (06:42→23:05)
[2021-09-11] MEDS: enoxaparin 40 mg/0.4 mL Syringe SUBCUT (06:45)
[2021-09-11] MEDS: insulin lispro 100 unit/1 mL SUBCUT ×3 (08:42→21:44)
[2021-09-11] MEDS: pantoprazole DR 40 mg Tablet PO ×2 (08:42→17:36)
[2021-09-11 08:44] LABS: Thyroid Stimulating Hormone 0.57 uIU/mL (0.27-4.20)
[2021-09-11 09:12] LABS: Glucose Point of Care 350 mg/dL (70-110)
--- NOTE | 2021-09-11 09:53 | PC.CHAP ---
Pastoral Care Encounter/Spiritual Assessment Type of Contact [] Declined computer applications developer visit [] Patient/Family/Request visit [] Outpatient visit [] Follow-up visit [] Physician referral [] Code/Alert [x] Routine visit [] Staff referral [] Actively dying [] Patient sleeping [] Family support [] [] Out of room [] Palliative care [] [] Receiving care in room [] Pre-surgical visit [] Trauma [] Long length of stay [] ICU visit [] Other: Relational/Emotional Strength [x] Patient feels connected with others/family/visitors/staff [] Distress [] Loneliness/isolation [] Abandonment Spirituality of Patient [x] Person of Priscilla [x] Attends Mandaeism of their [place] [x] Believes in Prayer [] Reads Bible or Mormon materials [] There are Spiritual issues to be addressed Supervisor Sample Preparation Interventions [x] Prayer [x] Active listening [x] Non-anxious presence [x] Spiritual/emotional support [] Crisis/trauma care [] Spiritual counseling [] Bereavement support [] Provided bereavement packet [] Provided Bible/devotional materials [] Provided toy/stuffed animal, coloring book to patient or family member [] Provided Communion [] Anointing/Kidder [] Salvation [x] Completed spiritual assessment [] Other: Impact on Illness or Injury [] Angry [] Fearful [] Anxious [] Often cries [] Exhaustion [] Unable to work [] Unable to attend scientology [] Unable to walk/stand [] Unable to read [] Unable to drive [] Unable to eat/drink [] Unable to sleep [] Unable to be with family [] Patient intubated [] Other: Summary Supervisor Sample Preparation prayed with patient and family member. Time spent with patient 8 minutes.
[2021-09-11 11:13] LABS: Glucose Point of Care 173 mg/dL (70-110)
[2021-09-11 12:40] LABS: Estmated Average Glucose 237; Hemoglobin A1C 9.9 % (4.0-6.0)
--- NOTE | 2021-09-11 12:49 | PM.PN ---
Subjective Subjective: Interval history: Sister is at the bedside who is stating that for last few days she has been [facility] She was put on Levaquin and then was switched to Augmentin after urine culture came back positive for Proteus She was requiring oxygen however she is vaccinated for COVID-19, she has not received a booster dose Her p.o. intake has been decreased, she takes mechanical soft diet She is bedbound does not ambulate on her own, she is not Alzheimer's dementia unit at the [facility] She is DNR/DNI Her insulin was stopped by the nursing staff because of her hypoglycemic events, she was given supplemental drinks which probably increased her blood sugar as per the sister Vitals/I&O/Wt Last Vital Signs Temp 99.9 F H 09/11/21 12:00 Pulse 115 H 09/11/21 12:00 Resp 18 09/11/21 12:00 BP 141/69 09/11/21 12:00 Pulse Ox 96 09/11/21 12:00 09/10/21 09/11/21 09/11/21 22:59 06:59 14:59 Intake Total 1240 / 1240 1050.1 / 1050.1 Balance 1240 / 1240 1050.1 / 1050.1 Weight last 48 hrs Weight 68.039 kg Weight 68.039 kg Physical Exam Narrative: EXAM NARRATIVE: Patient looks extremely dehydrated Clinically dehydrated Appears stated age Oriented to herself only No slurring of speech No active neurological focal deficit S1, S2 sinus tachycardia Soft abdomen bowel sound present Saturating well on 2 L nasal cannula bilateral breath sound without adventitious rhonchi or crackles Lower extremity no edema She is incontinent Data : 09/10/21 21:41 09/10/21 21:41 Micro: Microbiology 09/10/21 21:41 Blood Culture - Preliminary Blood SPECIMEN COLLECTED 09/10/21 21:41 Blood Culture - Preliminary Blood SPECIMEN COLLECTED A&P Assessment and plan (1) Hyperglycemia: Status: Acute (2) Hypernatremia: Status: Acute (3) Dehydration: Status: Acute (4) Hypoxia: Status: Acute (5) GI bleed: Status: Acute (6) Hypertension: Status: Acute (7) Hyperlipidemia: Status: Acute Qualifiers: Hyperlipidemia type: pure hypercholesterolemia Qualified Code(s): E78.00 - Pure hypercholesterolemia, unspecified (8) LUISA (acute kidney injury): Status: Acute (9) Alzheimer's dementia: Status: Acute (10) Delirium: Status: Acute Additional A&P Information Hypoactive delirium Mostly related dehydration, continue Zosyn which will cover UTI and possible aspiration pneumonia microorganisms, currently afebrile, mild leukocytosis Requested speech evaluation [facility] the [facility] she takes mechanical soft diet She is vaccinated for COVID-19 Severe hypernatremia If I correct sodium for hyperglycemia her sodium will be even higher Ideally she should get D5 or tap water, for now considering hyponatremia continue half-normal saline once her blood sugar is normal can try D5 IV fluids 3L free water deficit, after Na correction to hyperglycemia free water deficit 5.1 L Hyperglycemia: History of type 2 diabetes, mild acidosis, high anion gap, high anion gap secondary to lactic acidemia due to dehydration, requested serum ketones to rule out DKA Insulin was stopped by the [facility] staff [facility] because of hypoglycemic events, check A1c level, I am giving her half-normal saline bolus 500 mL for now she was given 18 units of short acting insulin, Her A1c is 9.9 she definitely needs long-acting insulin if she experienced hypoglycemic events sliding scale might be better We will add Lantus 10 units LUISA related to dehydration Follow-up with urine cultures Patient is incontinent I have asked nursing staff not to put [place] catheter for now Respiratory failure currently doing well on 2 L nasal cannula I do believe she can be weaned off, chest x-ray is unremarkable she is vaccinated for COVID-19 Can check D-dimer to rule out PE DNR/DNI Mechanical soft diet 9, speech evaluation today DVT prophylaxis: Heparin Attestations Medical Necessity Statement*: Continue medical management change to inpatient Time Spent in Patient Care: 16 - 35 minutes Coding Level of Care Code Acute Package Pick Up for g Fwd Diagnoses Hyperglycemia R73.9 Hypernatremia E87.0 Dehydration E86.0 Hypoxia R09.02 GI bleed K92.2 Hypertension I10 Hyperlipidemia E78.00 Hyperlipidemia type: pure hypercholesterolemia LUISA (acute kidney injury) N17.9 Alzheimer's dementia G30.9; F02.80 Delirium R41.0
[2021-09-11 13:52] LABS: Glucose Point of Care 224 mg/dL (70-110)
[2021-09-11 17:24] LABS: Glucose Point of Care 86 mg/dL (70-110)
[2021-09-11 19:20] LABS: Ketone (Acetest) Serum Negative (Negative)
[2021-09-11 19:31] LABS: Alanine Aminotransferase 10 U/L (0-33); Albumin Level 3.1 g/dL (3.5-5.2); Alkaline Phosphatase 94 IU/L (35-105); Anion Gap 18.3 (5-19); Aspartate Amino Transferase 11 U/L (0-32); Blood Urea Nitrogen 21 mg/dL (8-23); Calcium 8.4 mg/dL (8.5-10.5); Carbon Dioxide 20 mmol/L (22-29); Chloride 123 mmol/L (98-107); Globulin 2.7 g/dL (1.3-4.6); Glucose 251 mg/dL (65-115); Magnesium 1.5 mg/dL (1.7-2.3); Osmolality Calculated 337 mOsm/kg (285-295); Potassium 3.3 mmol/L (3.5-5.1); Sodium 158 mmol/L (136-145); Total Bilirubin 0.2 mg/dL (0.15-1.2); Total Protein 5.8 g/dL (6.6-8.7)
[2021-09-11] MEDS: levETIRAcetam 500 mg Tablet PO (21:02)
[2021-09-11] MEDS: ALPRAZolam 0.5 mg Tablet 0.25 MG PO (21:02)
[2021-09-11] MEDS: acetaminophen 325 mg Tablet 650 MG PO (21:04)
[2021-09-11 21:07] LABS: Glucose Point of Care 292 mg/dL (70-110)
[2021-09-11] MEDS: insulin glargine 100 units/1 mL 10 UNIT SUBCUT (21:44)
[2021-09-12] VITALS (8 sets, daily range): BP systolic 159–173; BP diastolic 69–99; PULSE 81–95; RESP 16–23; TEMP 36.6–37.1; O2SAT 90–99
[2021-09-12] MEDS: enoxaparin 40 mg/0.4 mL Syringe SUBCUT (00:42)
[2021-09-12 05:36] LABS: Lactate (Lactic Acid level) 0.9 mmol/L (0.5-2.2)
[2021-09-12] MEDS: sodium chloride 0.45% 1,000 ML 75 ML IV (06:12)
[2021-09-12] MEDS: piperacillin-tazobactam 3.375 GM in sodium chloride 0.9% (plus) 50 ML IV ×3 (06:17→23:42)
[2021-09-12] MEDS: levothyroxine 75 mcg Tablet PO (06:20)
[2021-09-12 06:29] LABS: Glucose Point of Care 195 mg/dL (70-110)
[2021-09-12 06:34] LABS: Basophils % 0.2 %; Eosinophils # 0.2 10^3/uL (0.0-0.8); Eosinophils % 1.9 %; Hematocrit 25.8 % (37.0-47.0); Hemoglobin 7.6 g/dL (11.5-15.3); Lymphocytes # 2.3 10^3/uL (0.8-4.8); Lymphocytes % 20.3 %; Mean Corpuscular HGB Conc 29.5 g/dL (30.0-36.0); Mean Corpuscular Hemoglobin 27.6 pg (28.0-34.0); Mean Corpuscular Volume 93.8 fl (81-99); Mean Platelet Volume 11.1 fL (7.4-10.4); Monocytes # 0.5 10^3/uL (0.2-0.9); Monocytes % 4.3 %; Neutrophils # 8.04 10^3/uL (1.8-7.7); Neutrophils % 69.9 %; Nucleated Red Blood Cells % 0.2 %; Platelet Count 335 10^3/cmm (130-400); Red Blood Count 2.75 10^6/uL (4.1-5.3); Red Cell Distribution Width 14.8 % (12.1-15.1); White Blood Count 11.5 10^3/uL (4.0-10.0)
[2021-09-12 06:37] LABS: Alanine Aminotransferase 10 U/L (0-33); Albumin Level 3.1 g/dL (3.5-5.2); Alkaline Phosphatase 92 IU/L (35-105); Aspartate Amino Transferase 13 U/L (0-32); Blood Urea Nitrogen 23 mg/dL (8-23); Carbon Dioxide 21 mmol/L (22-29); Chloride 123 mmol/L (98-107); Globulin 2.8 g/dL (1.3-4.6); Glucose 127 mg/dL (65-115); Magnesium 1.5 mg/dL (1.7-2.3); Osmolality Calculated 331 mOsm/kg (285-295); Sodium 158 mmol/L (136-145); Total Bilirubin 0.3 mg/dL (0.15-1.2); Total Protein 5.9 g/dL (6.6-8.7)
[2021-09-12 06:39] LABS: Anion Gap 17.4 (5-19); Potassium 3.4 mmol/L (3.5-5.1)
[2021-09-12] MEDS: ALPRAZolam 0.5 mg Tablet 0.25 MG PO ×2 (08:51→20:29)
[2021-09-12] MEDS: insulin lispro 100 unit/1 mL SUBCUT ×3 (08:51→21:22)
[2021-09-12] MEDS: levETIRAcetam 500 mg Tablet PO ×2 (08:52→20:30)
[2021-09-12] MEDS: metoprolol succinate ER (24 HR) 25 mg Tablet 12.5 MG PO (08:52)
[2021-09-12] MEDS: magnesium sulfate premix 2 GM/50 ML PIGGYBACK IV (08:52)
[2021-09-12] MEDS: potassium chloride oral liq 20 mEq/15 mL UDC 40 MEQ PO (11:17)
[2021-09-12 11:34] LABS: Glucose Point of Care 201 mg/dL (70-110)
--- NOTE | 2021-09-12 13:20 | P.PN_ITS ---
Subjective Subjective: Interval history: Seen this morning. Patient appears confused and unable to provide me with any history but was able to tell me that she is feeling okay and does not have any pain anywhere. Nursing staff did not report any issues overnight. Potassium and magnesium repleted this a.m. Sodium still at 158. Blood sugar is better controlled. Patient did have a febrile episode last night at 101. Vitals/I&O/Wt Last Vital Signs Temp 98.8 F 09/12/21 12:00 Pulse 90 09/12/21 12:00 Resp 20 H 09/12/21 12:00 BP 164/99 09/12/21 12:00 Pulse Ox 95 09/12/21 12:00 09/11/21 09/12/21 09/12/21 22:59 06:59 14:59 Intake Total 410 / 2482.6 1050 / 3532.6 400 / 400 Balance 410 / 2482.6 1050 / 3532.6 400 / 400 Weight last 48 hrs Weight 68.039 kg Weight 68.039 kg Physical Exam Narrative: EXAM NARRATIVE: General: Alert oriented x 1, appears dehydrated, appears stated age HEENT: Normocephalic, atraumatic, EOMI, breathing 2 L nasal cannula Cardio: Regular rate rhythm, normal S1-S2, not tachycardic today Respiratory: Diminished bilateral air entry, no rhonchi crackles or wheezes heard, generally clear to auscultation GI: Abdomen soft, nontender, nondistended, bowel sounds + Extremities: No edema Incontinent of urine. Data : 09/12/21 04:30 09/12/21 04:30 Micro: Microbiology 09/10/21 21:41 Blood Culture - Preliminary Blood NEGATIVE TO DATE 09/10/21 21:41 Blood Culture - Preliminary Blood NEGATIVE TO DATE A&P Assessment and plan (1) Hyperglycemia: Status: Acute (2) Hypernatremia: Status: Acute (3) Dehydration: Status: Acute (4) Hypoxia: Status: Acute (5) GI bleed: Status: Acute (6) Hypertension: Status: Acute (7) Hyperlipidemia: Status: Acute Qualifiers: Hyperlipidemia type: pure hypercholesterolemia Qualified Code(s): E78.00 - Pure hypercholesterolemia, unspecified (8) LUISA (acute kidney injury): Status: Acute (9) Alzheimer's dementia: Status: Acute (10) Delirium: Status: Acute Additional A&P Information Hypoactive delirium Mostly related dehydration, continue Zosyn which will cover UTI and possible aspiration pneumonia microorganisms, currently afebrile, mild leukocytosis Requested speech evaluation At the senior living she takes mechanical soft diet She is vaccinated for COVID-19 Severe hypernatremia If I correct sodium for hyperglycemia her sodium will be even higher Patient was given half-normal saline, sodium is now at 158. Patient has a large free water deficit. We will started on D5 water today. We will recheck BMP at 7 PM and adjust accordingly. Avoid rapid correction. Goal 6-8 increase per 24- hour period. 3L free water deficit, after Na correction to hyperglycemia free water deficit 5.1 L Hyperglycemia: History of type 2 diabetes, mild acidosis, high anion gap, high anion gap secondary to lactic acidemia due to dehydration, requested serum ketones to rule out DKA Insulin was stopped by the nursing staff at senior living because of hypoglycemic events, check A1c level, I am giving her half-normal saline bolus 500 mL for now she was given 18 units of short acting insulin, Her A1c is 9.9 she definitely needs long-acting insulin if she experienced hypoglycemic events sliding scale might be better Continue Lantus 10 units. LUISA related to dehydration Follow-up with urine cultures Patient is incontinent I have asked nursing staff not to put [place] catheter for now Respiratory failure currently doing well on 2 L nasal cannula I do believe she can be weaned off, chest x-ray is unremarkable she is vaccinated for COVID-19 D-Dimer elevated at 1.65. Will check V/Q scan DNR/DNI Mechanical soft diet, speech evaluation today DVT prophylaxis: Heparin Attestations Medical Necessity Statement*: > 48 hour stay for correction of hypernatremia Coding Level of Care Code Acute Client Relations Representative for [facility] Fwd Diagnoses Hyperglycemia R73.9 Hypernatremia E87.0 Dehydration E86.0 Hypoxia R09.02 GI bleed K92.2 Hypertension I10 Hyperlipidemia E78.00 Hyperlipidemia type: pure hypercholesterolemia LUISA (acute kidney injury) N17.9 Alzheimer's dementia G30.9; F02.80 Delirium R41.0
--- NOTE | 2021-09-12 13:32 | NM_ITS ---
WS: [id number] NUCLEAR MEDICINE VENTILATION/PERFUSION LUNG SCAN HISTORY: rule out PE COMPARISON: None available. TECHNIQUE: Ventilation: None. Perfusion: 5.3 mCi of technetium 99m MAA IV. Heart is enlarged. There is also a photopenic defect in the LEFT lower lung field consistent with the enlarged heart and the hiatal hernia. No focal wedge-shaped defect to suggest acute infarct. NM/NM pul perfusion [id number] IMPRESSION: Low probability pulmonary embolism.
[2021-09-12] MEDS: dextrose 5% 1,000 ML 100 ML IV (15:07)
[2021-09-12 16:55] LABS: Glucose Point of Care 269 mg/dL (70-110)
[2021-09-12 20:33] LABS: Glucose Point of Care 302 mg/dL (70-110)
[2021-09-12] MEDS: insulin glargine 100 units/1 mL 10 UNIT SUBCUT (21:23)
[2021-09-12 21:30] LABS: Anion Gap 18.5 (5-19); Blood Urea Nitrogen 21 mg/dL (8-23); Calcium 7.7 mg/dL (8.5-10.5); Carbon Dioxide 20 mmol/L (22-29); Chloride 113 mmol/L (98-107); Glucose 244 mg/dL (65-115); Osmolality Calculated 317 mOsm/kg (285-295); Potassium 3.5 mmol/L (3.5-5.1); Sodium 148 mmol/L (136-145)
[2021-09-13] VITALS: BP 118/68; PULSE 107; RESP 17; TEMP 36.6; O2SAT 94
--- NOTE | 2021-09-13 00:16 | PC.NURSE ---
i reported high pulse 107 to nurse
[2021-09-13 01:34] LABS: Glucose Point of Care 98 mg/dL (70-110)
[2021-09-13] MEDS: enoxaparin 40 mg/0.4 mL Syringe SUBCUT (03:00)
[2021-09-13] MEDS: dextrose 5% 1,000 ML 100 ML IV ×3 (03:04→22:41)
[2021-09-13 04:00] VITALS: BP 122/71; PULSE 100; RESP 18; TEMP 36.5; O2SAT 95
[2021-09-13 06:00] LABS: Basophils # 0.1 10^3/uL (0.0-0.1); Basophils % 0.3 %; Eosinophils # 0.4 10^3/uL (0.0-0.8); Eosinophils % 2.5 %; Hemoglobin 10.5 g/dL (11.5-15.3); Lymphocytes # 2.3 10^3/uL (0.8-4.8); Lymphocytes % 13.7 %; Mean Corpuscular Hemoglobin 27.8 pg (28.0-34.0); Mean Corpuscular Volume 92.6 fl (81-99); Monocytes # 0.6 10^3/uL (0.2-0.9); Monocytes % 3.6 %; Neutrophils # 13.04 10^3/uL (1.8-7.7); Neutrophils % 76.6 %; Nucleated Red Blood Cells % 0.1 %; Platelet Count 274 10^3/cmm (130-400); Red Blood Count 3.78 10^6/uL (4.1-5.3); Red Cell Distribution Width 14.6 % (12.1-15.1)
[2021-09-13] MEDS: piperacillin-tazobactam 3.375 GM in sodium chloride 0.9% (plus) 50 ML IV ×3 (06:03→22:41)
[2021-09-13] MEDS: levothyroxine 75 mcg Tablet PO (06:03)
[2021-09-13 06:22] LABS: Anion Gap 18.4 (5-19); Blood Urea Nitrogen 20 mg/dL (8-23); Carbon Dioxide 21 mmol/L (22-29); Chloride 114 mmol/L (98-107); Glucose 198 mg/dL (65-115); Osmolality Calculated 318 mOsm/kg (285-295); Potassium 3.4 mmol/L (3.5-5.1); Sodium 150 mmol/L (136-145)
[2021-09-13 06:51] LABS: Glucose Point of Care 270 mg/dL (70-110)
[2021-09-13 07:52] LABS: Add Urine Microscopic? NO; Charge for UA Resulting for Rev
[2021-09-13 07:56] VITALS: BP 129/82; PULSE 80; RESP 16; TEMP 36.9; O2SAT 91
[2021-09-13 08:08] LABS: Bilirubin Urine Neg (Negative); Blood Urine Neg (Negative); Glucose Urine UA 2+ (Normal); Ketones Urine Negative (Negative); Leukocyte Esterase Urine Negative (Negative); Nitrate Urine Negative (Negative); Protein Urine Neg (Negative); Urine Appearance Clear (CLEAR); Urine Color Colorless (Yellow); Urobilinogen Urine Norm (Negative); pH Urine 7 (5-7)
[2021-09-13] MEDS: levETIRAcetam 500 mg Tablet PO ×2 (08:20→21:03)
[2021-09-13] MEDS: ALPRAZolam 0.5 mg Tablet 0.25 MG PO ×2 (08:20→21:03)
[2021-09-13] MEDS: metoprolol succinate ER (24 HR) 25 mg Tablet 12.5 MG PO (08:20)
[2021-09-13] MEDS: pantoprazole DR 40 mg Tablet PO (08:21)
[2021-09-13] MEDS: insulin lispro 100 unit/1 mL SUBCUT ×3 (08:21→21:38)
[2021-09-13 11:02] LABS: Glucose Point of Care 272 mg/dL (70-110)
--- NOTE | 2021-09-13 11:20 | PC.SOCIAL ---
IMM updated IMM dated and initialed and copy given to patient
[2021-09-13 12:00] VITALS: BP 148/65; PULSE 78; RESP 16; TEMP 36.9; O2SAT 98
--- NOTE | 2021-09-13 15:08 | PM.PN ---
Subjective Subjective: Interval history: Seen this morning. Sister present at bedside. White count has been up to 17. Patient has been afebrile. Sodium is coming up nicely as well. 150 this morning. Potassium was repleted. Patient still remains confused. It seems that this is her baseline. Sister does state that patient looks a lot better compared to when she 1st got here. She is requesting to restart the patient's clozapine. Vitals/I&O/Wt Last Vital Signs Temp 98.4 F 09/13/21 12:00 Pulse 78 09/13/21 12:00 Resp 16 09/13/21 12:00 BP 148/65 09/13/21 12:00 Pulse Ox 98 09/13/21 12:00 09/13/21 09/13/21 09/13/21 06:59 14:59 22:59 Intake Total 1270 / 2370 1480 / 1480 Balance 1270 / 2370 1480 / 1480 Physical Exam Narrative: EXAM NARRATIVE: General: Alert oriented x 1, appears euvolemic today., appears stated age HEENT: Normocephalic, atraumatic, EOMI, breathing 2 L nasal cannula Cardio: Regular rate rhythm, normal S1-S2, not tachycardic today Respiratory: Diminished bilateral air entry, no rhonchi crackles or wheezes heard, generally clear to auscultation GI: Abdomen soft, nontender, nondistended, bowel sounds + Extremities: No edema Incontinent of urine. Data : 09/13/21 05:02 09/13/21 05:02 A&P Assessment and plan (1) Hyperglycemia: Status: Acute (2) Hypernatremia: Status: Acute (3) Dehydration: Status: Acute (4) Hypoxia: Status: Acute (5) GI bleed: Status: Acute (6) Hypertension: Status: Acute (7) Hyperlipidemia: Status: Acute Qualifiers: Hyperlipidemia type: pure hypercholesterolemia Qualified Code(s): E78.00 - Pure hypercholesterolemia, unspecified (8) LUISA (acute kidney injury): Status: Acute (9) Alzheimer's dementia: Status: Acute (10) Delirium: Status: Acute Additional A&P Information Hypoactive delirium Mostly related dehydration, continue Zosyn which will cover UTI and possible aspiration pneumonia microorganisms, currently afebrile, mild leukocytosis Requested speech evaluation At the alf she takes mechanical soft diet She is vaccinated for COVID-19 UTI has been covered with Zosyn at this time. However urine sample has not been obtained since admission. I have requested the nurse to obtain sample today. Severe hypernatremia Sodium 158 on admission. D5 water has been started. We will continue. Sodium 150 today. Once sodium normalizes we can talk about discharging the patient. Hyperglycemia: History of type 2 diabetes, mild acidosis, high anion gap, high anion gap secondary to lactic acidemia due to dehydration, requested serum ketones to rule out DKA Insulin was stopped by the nursing staff at alf because of hypoglycemic events, check A1c level, I am giving her half-normal saline bolus 500 mL for now she was given 18 units of short acting insulin, Her A1c is 9.9 she definitely needs long-acting insulin if she experienced hypoglycemic events sliding scale might be better Continue Lantus 10 units. Blood sugar is better controlled. LUISA related to dehydration Follow-up with urine cultures Acute kidney injury has improved as well. Creatinine 1.1 today. Respiratory failure currently doing well on 2 L nasal cannula I do believe she can be weaned off, chest x-ray is unremarkable she is vaccinated for COVID-19 D-Dimer elevated at 1.65. VQ scan was ordered. Ventilation portion unable to be done due to patient's cooperation and delirium. Perfusion scan was however done and has low probability for pulmonary embolism. I will talk to respiratory therapy to see if she can be weaned off of her nasal cannula. Respiratory johnson I do not think there is any pathology going on at this time. However we will repeat a chest x-ray to be sure since white count is also increased today. DNR/DNI Mechanical soft diet, speech evaluation today DVT prophylaxis: Heparin Attestations Medical Necessity Statement*: Greater than 24-hour stay. 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
--- NOTE | 2021-09-13 15:11 | XRR_ITS ---
PROCEDURE INFORMATION: Exam: XR Chest Exam date and time: 09/13/2021 3:11 PM Age: 81 years old Clinical indication: Shortness of breath; Additional info: Rule out pna TECHNIQUE: Imaging protocol: XR of the chest. Views: 1 view. COMPARISON: CR (CHEST, ) 09/10/2021 8:04 PM FINDINGS: Tubes, catheters and devices: REFINER OPERATOR shunt again noted traversing the right chest wall. Lungs: No consolidation. Pleural spaces: Similar bilateral costophrenic blunting which may relate to bibasilar scarring versus small volume pleural effusions. This is unchanged from prior study. No pneumothorax. Heart/Mediastinum: Similar cardiomegaly. Large hiatal hernia again noted. Bones/joints: Visualized osseous structures appear intact. XR/XR chest 1V portable [id number] IMPRESSION: Stable exam, no new or worsening consolidation. Radiation Dose CTDIVOL = (mGy): DLP = (mGy-cm)
[2021-09-13] MEDS: potassium chloride oral liq 20 mEq/15 mL UDC 40 MEQ PO (15:40)
[2021-09-13 15:49] VITALS: BP 128/71; PULSE 68; RESP 16; TEMP 36.7; O2SAT 97
[2021-09-13 16:57] LABS: Glucose Point of Care 121 mg/dL (70-110)
[2021-09-13 20:00] VITALS: BP 167/89; PULSE 89; RESP 17; TEMP 36.7; O2SAT 91
[2021-09-13 21:34] LABS: Glucose Point of Care 169 mg/dL (70-110)
[2021-09-13] MEDS: insulin glargine 100 units/1 mL 10 UNIT SUBCUT (21:38)
[2021-09-14] VITALS: BP 152/72; PULSE 82; RESP 17; TEMP 36.7; O2SAT 93
[2021-09-14] MEDS: enoxaparin 40 mg/0.4 mL Syringe SUBCUT (00:38)
[2021-09-14 04:00] VITALS: BP 148/69; PULSE 80; RESP 17; TEMP 36.6; O2SAT 92
[2021-09-14] MEDS: levothyroxine 75 mcg Tablet PO (05:59)
[2021-09-14 06:33] LABS: Glucose Point of Care 232 mg/dL (70-110)
[2021-09-14 08:00] VITALS: BP 138/88; PULSE 80; RESP 17; TEMP 36.6; O2SAT 96
[2021-09-14] MEDS: ALPRAZolam 0.5 mg Tablet 0.25 MG PO (08:28)
[2021-09-14] MEDS: insulin lispro 100 unit/1 mL SUBCUT ×2 (08:29→11:46)
[2021-09-14] MEDS: levETIRAcetam 500 mg Tablet PO (08:30)
[2021-09-14] MEDS: pantoprazole DR 40 mg Tablet PO (08:30)
[2021-09-14] MEDS: piperacillin-tazobactam 3.375 GM in sodium chloride 0.9% (plus) 50 ML IV (08:30)
[2021-09-14] MEDS: metoprolol succinate ER (24 HR) 25 mg Tablet 12.5 MG PO (08:30)
[2021-09-14] MEDS: dextrose 5% 1,000 ML 100 ML IV (08:39)
[2021-09-14 09:13] LABS: Basophils % 0.2 %; Eosinophils # 0.6 10^3/uL (0.0-0.8); Eosinophils % 4.8 %; Hemoglobin 8.2 g/dL (11.5-15.3); Lymphocytes # 1.9 10^3/uL (0.8-4.8); Lymphocytes % 15.6 %; Mean Corpuscular HGB Conc 30.4 g/dL (30.0-36.0); Mean Corpuscular Hemoglobin 27.8 pg (28.0-34.0); Mean Corpuscular Volume 91.5 fl (81-99); Mean Platelet Volume 10.5 fL (7.4-10.4); Monocytes # 0.5 10^3/uL (0.2-0.9); Monocytes % 3.7 %; Neutrophils # 9.16 10^3/uL (1.8-7.7); Neutrophils % 73.9 %; Nucleated Red Blood Cells % 0 %; Platelet Count 335 10^3/cmm (130-400); Red Blood Count 2.95 10^6/uL (4.1-5.3); Red Cell Distribution Width 14.6 % (12.1-15.1); White Blood Count 12.4 10^3/uL (4.0-10.0)
[2021-09-14 09:46] LABS: Anion Gap 14.5 (5-19); Blood Urea Nitrogen 12 mg/dL (8-23); Calcium 7.6 mg/dL (8.5-10.5); Carbon Dioxide 19 mmol/L (22-29); Chloride 111 mmol/L (98-107); Glucose 229 mg/dL (65-115); Magnesium 1.5 mg/dL (1.7-2.3); Osmolality Calculated 299 mOsm/kg (285-295); Potassium 3.5 mmol/L (3.5-5.1); Sodium 141 mmol/L (136-145)
[2021-09-14] MEDS: cloZAPine 25 mg Tablet 50 MG PO (09:48)
--- NOTE | 2021-09-14 10:14 | PC.NURSE ---
Erin from [facility] notified at this time via telephone with update that was requested. Verbalized understanding of current treatments and thanks for update.
[2021-09-14 11:01] LABS: Glucose Point of Care 198 mg/dL (70-110)
[2021-09-14] MEDS: lanolin oint 7 gm 1 APPLIC TOPICAL (11:46)
[2021-09-14 11:53] LABS: Glucose Point of Care 184 mg/dL (70-110)
--- NOTE | 2021-09-14 11:56 | P.DS_ITS ---
Discharge Providers Date of Admission: 09/10/21 23:06 Date of Discharge: September 14, 2021 Attending Provider at Admission: Kristin Yoon MD Attending Provider at Discharge: Carine Honeycutt MD Primary Care Provider: Edwardo Carranza Jr, MD Diagnoses at Discharge Discharge Diagnosis (1) Hyperglycemia: Status: Acute (2) Hypernatremia: Status: Acute (3) Dehydration: Status: Acute (4) Hypoxia: Status: Acute (5) GI bleed: Status: Acute (6) Hypertension: Status: Acute (7) Hyperlipidemia: Status: Acute Qualifiers: Hyperlipidemia type: pure hypercholesterolemia Qualified Code(s): E78.00 - Pure hypercholesterolemia, unspecified (8) LUISA (acute kidney injury): Status: Acute (9) Alzheimer's dementia: Status: Acute (10) Delirium: Status: Acute Reason for Visit Reason for Visit: RESPIRATORY DISTRESS Hospital Course Hospital Course HPI as per Dr. Karrie Dougherty Kenneth Linder is a 81 year old female brought from [facility], care home resident there in the memory unit p/w 3-4 days of cough, wheezing, new 02 requirement of 3lpm supplemental 02 and 4-5 episodes of vomiting yesterday. She has had Tmax 100.6- 100.7 F at [facility]. Has been diagnosed with pneumonia and UTI and treated for both with abx without improvement. Significant labs today include hyperglycemia with blood sugar 625, hypernatremia,elevated lactate. Patient is non verbal, essentially bed bound. Past h/o PE+, taken off a/c 3 years ago due to recurrent GI bleeding. vaccinated for covid 19 with 2 dose series, uncertain if also received booster. Reportedly tested negative at [facility]. Negative rapid AG today Course Patient was kept in the hospital to correct for hypernatremia. Sodium eventually came down to 141 and she was discharged. Patient was talking alert awake and with sister present at bedside. She was treated for UTI with Zosyn during hospital stay and transition to Augmentin at discharge. She was also sent home with Lantus 10 units daily and low-dose intensity sliding scale. Also seen by swallow evaluation and ground meat recommended along with Glucerna supplement and regular liquids. [facility] will [facility] and follow-up with primary care physician for further management of her diabetes. Patient was dehydrated during the admission and therefore was given fluids. No evidence of pneumonia during hospital stay. Respiratory johnson patient has been on 1 L nasal cannula. She can be weaned off to room air as well. Physical Exam Narrative: EXAM NARRATIVE: General: Alert oriented x 1, appears euvolemic today., appears stated age HEENT: Normocephalic, atraumatic, EOMI, breathing 2 L nasal cannula Cardio: Regular rate rhythm, normal S1-S2, not tachycardic today Respiratory: Diminished bilateral air entry, no rhonchi crackles or wheezes heard, generally clear to auscultation GI: Abdomen soft, nontender, nondistended, bowel sounds + Extremities: No edema Incontinent of urine. Discharge Data Data Completed and Pending: Completed Studies During Hospitalization Category Date Time Status CT abdomen pelvis wo con [id number] Rout ine Cat Scan 09/11/21 06:11 Completed XR chest 1V lidia ble [id number] Routine Exams 09/13/21 15:11 Completed XR chest 1V lidia ble [id number] Urgent Exams 09/10/21 19:52 Completed NM pul perfusion [id number] Urgent Nuc Med 09/12/21 13:32 Completed Pending at discharge Category Date Time Status Bacterial Antigen Routine Lab 09/11/21 12:57 Uncollected Blood Culture Sta t Lab 09/10/21 21:41 Results Blood Culture Sta t Lab 09/13/21 16:51 Results Clostridioides Di fficile PCR Routin e Lab 09/11/21 06:25 Uncollected Enteric Bacterial Panel by PCR Rout ine Lab 09/11/21 06:25 Uncollected Legionella Antige n STAT Routine Lab 09/11/21 12:57 Uncollected SARS Covid-2 Anti gen Stat Lab 09/14/21 11:12 Uncollected Urinalysis Routin e Lab 09/11/21 12:57 Uncollected Urine Culture Sta t Lab 09/13/21 06:15 Received Labs from last 24 hours 09/14/21 09/14/21 09/14/21 11:51 10:47 09:00 WBC RBC Hgb Hct MCV MCH MCHC RDW Plt Count MPV Neut % (Auto) Lymph % (Auto) [place] % (Auto) Eos % (Auto) Baso % (Auto) Neut # (Auto) Lymph # (Auto) [place] # (Auto) Eos # (Auto) Baso # (Auto) Nucleated RBC % (a uto) Nucleated RBCs # Sodium 141 Potassium 3.5 Chloride 111 H Carbon Dioxide 19 L Anion Gap 14.5 BUN 12 Creatinine 0.9 GFR Calculation Not Reportable Glucose 229 H POC Glucose 184 H 198 H Calculated Osmolal ity 299 H Calcium 7.6 L Magnesium 1.5 L 09/14/21 09/14/21 09/13/21 09:00 06:26 21:32 WBC 12.4 H RBC 2.95 L Hgb 8.2 L Hct 27.0 L MCV 91.5 MCH 27.8 L MCHC 30.4 RDW 14.6 Plt Count 335 MPV 10.5 H Neut % (Auto) 73.9 Lymph % (Auto) 15.6 [place] % (Auto) 3.7 Eos % (Auto) 4.8 Baso % (Auto) 0.2 Neut # (Auto) 9.16 H Lymph # (Auto) 1.9 [place] # (Auto) 0.5 Eos # (Auto) 0.6 Baso # (Auto) 0.0 Nucleated RBC % (a uto) 0 Nucleated RBCs # 0.0 Sodium Potassium Chloride Carbon Dioxide Anion Gap BUN Creatinine GFR Calculation Glucose POC Glucose 232 H 169 H Calculated Osmolal ity Calcium Magnesium 09/13/21 16:50 WBC RBC Hgb Hct MCV MCH MCHC RDW Plt Count MPV Neut % (Auto) Lymph % (Auto) [place] % (Auto) Eos % (Auto) Baso % (Auto) Neut # (Auto) Lymph # (Auto) [place] # (Auto) Eos # (Auto) Baso # (Auto) Nucleated RBC % (a uto) Nucleated RBCs # Sodium Potassium Chloride Carbon Dioxide Anion Gap BUN Creatinine GFR Calculation Glucose POC Glucose 121 H Calculated Osmolal ity Calcium Magnesium Vitals: Last Vital Signs Temp 97.8 F 09/14/21 08:00 Pulse 80 09/14/21 08:00 Resp 17 09/14/21 08:00 BP 138/88 09/14/21 08:00 Pulse Ox 96 09/14/21 08:00 Discharge Plan Discharge Patient Disposition: Xfer SNF Condition: Stable Prescriptions: New Lantus U-100 Insulin 100 unit/mL Solution 10 unit SUBCUT BEDTIME 30 Days Qty: 10 RF: 0 Humalog U-100 Insulin 100 unit/mL Solution 1 sliding scale dose SUBCUT WM&BEDTIME 30 Days Qty: 10 RF: 0 Continued metoprolol succinate 25 mg tablet extended release 24 hr 12.5 mg PO DAILY@08 RF: 0 acetaminophen [Tylenol] 325 mg tablet 650 mg PO Q4H PRN (Reason: Pain) RF: 0 amantadine HCl 100 mg capsule 100 mg PO BID@, RF: 0 clozapine 50 mg tablet 50 mg PO DAILY@08 RF: 0 polyethylene glycol 3350 [Miralax] 17 gram powder in packet 17 gm PO DAILY@08 RF: 0 senna 8.6 mg capsule 8.6 mg PO DAILY@08 RF: 0 vitamin B complex [B Complex-Vitamin B12] Tablet 1 tab PO DAILY@08 RF: 0 Latuda 40 mg tablet 40 mg PO DAILY@18 RF: 0 polyvinyl alcohol [Artificial Tears (polyvin alc)] 1.4 % Drops 1 drp OPHTHALMIC (EYE) QID RF: 0 magnesium hydroxide [Milk of Magnesia] 400 mg/5 mL Suspension 30 ml PO DAILY PRN (Reason: Constipation) RF: 0 bisacodyl 10 mg Suppository 10 mg UT DAILY PRN (Reason: Constipation) RF: 0 cranberry 400 mg Capsule 400 mg PO BID@, RF: 0 estradiol [Estrace] 0.01 % (0.1 mg/gram) Cream 1 g VAGINAL .TWICE A WEEK RF: 0 pantoprazole [Protonix] 20 mg Tablet,Delayed Release (Dr/Ec) 20 mg PO BID@,16 RF: 0 levothyroxine 75 mcg tablet 75 mcg PO DAILY@06 RF: 0 alprazolam [Xanax] 0.25 mg Tablet 0.25 mg PO BID PRN (Reason: Anxiety) RF: 0 pravastatin 10 mg Tablet 10 mg PO DAILY@20 RF: 0 clozapine 200 mg Tablet 200 mg PO DAILY@20 RF: 0 TwoCal HN 0.08-2 gram-kcal/mL Liquid 1 ea PO TID RF: 0 levetiracetam [Keppra] 500 mg tablet 500 mg PO BID@, RF: 0 metformin 500 mg tablet 500 mg PO BID@, RF: 0 mirtazapine 15 mg Tablet 15 mg PO BEDTIME@20 RF: 0 sertraline 100 mg Tablet 100 mg PO DAILY RF: 0 Augmentin 875-125 mg Tablet 1 tab PO BID 2 Days Qty: 4 RF: 0 Discontinued alprazolam 0.25 mg tablet 0.25 mg PO BID@08,20 RF: 0 Enema 19-7 gram/118 mL Enema 118 ml UT DAILY PRN (Reason: Constipation) RF: 0 mineral oil [Enema] Enema 118 ml UT DAILY PRN (Reason: Constipation) RF: 0 Discharge Orders: Discharge Order (Routine); Ordered 09/14/21 Ordered By: Carine Honeycutt Other Ambulatory Orders: Basic Metabolic Panel (Routine) Timeframe: [id number] Facility: [facility] - Location: Lab - Main Lab Ordered By: Carine Honeycutt Referrals: Edwardo Carranza Jr, MD [Primary Care Provider] - 4-7 days Discharge Diet: As Directed Discharge Activity: Resume usual activity Patient Instructions: Insulin Lispro Protamine/Insulin Lispro (By injection), Insulin Glargine (By injection), Opioid Safety Activity Restrictions/Additional Instructions: Glucerna with meals (pt prefers vanilla or butter pecan flavor) Ground diet with regular liquids as per swallow evaluation. Patient will require some assistance with meals Discharge Attestations Time Spent in Discharge Care*: less than 30 min Quality Metrics Clinical Quality Measures During this hospital stay, did patient experience: None Coding Level of Care Code Acute g FW DC note Diagnoses Hyperglycemia R73.9 Hypernatremia E87.0 Dehydration E86.0 Hypoxia R09.02 GI bleed K92.2 Hypertension I10 Hyperlipidemia E78.00 Hyperlipidemia type: pure hypercholesterolemia LUISA (acute kidney injury) N17.9 Alzheimer's dementia G30.9; F02.80 Delirium R41.0
[2021-09-14 11:58] VITALS: BP 154/73; PULSE 98; RESP 17; TEMP 37.5; O2SAT 94
[2021-09-14] MEDS: acetaminophen 325 mg Tablet 650 MG PO (12:21)
[2021-09-14 12:56] LABS: SARS Covid-2 Antigen Negative (Negative)
[2021-09-14 14:18] VITALS: BP 154/73; PULSE 98; RESP 17; TEMP 37.5; O2SAT 94
== END 2021-09-14 14:22 | disposition skilled nursing facility (03) | DRG 641 ==
LOC: ER 23:19 → MEDSURG 23:33
PROVIDERS: Internal Medicine; Admitting Provider Student in an Organized Health Care Education/Training Program; Emergency Provider Emergency Medicine; PCP Family Medicine; Visit Provider Internal Medicine
DX: E87.0 Hyperosmolality and hypernatremia (principal); N39.0 Urinary tract infection, site not specified; N17.9 Acute kidney failure, unspecified; F05 Delirium due to known physiological condition; R09.02 Hypoxemia; E11.65 Type 2 diabetes mellitus with hyperglycemia; E86.0 Dehydration; R11.2 Nausea with vomiting, unspecified; R19.7 Diarrhea, unspecified; I10 Essential (primary) hypertension; G30.9 Alzheimer's disease, unspecified; F02.80 Dementia in other diseases classified elsewhere, unspecified severity, without behavioral disturbance, psychotic disturbance, mood disturbance, and anxiety; E78.00 Pure hypercholesterolemia, unspecified; I25.10 Atherosclerotic heart disease of native coronary artery without angina pectoris; K21.9 Gastro-esophageal reflux disease without esophagitis; F42.9 Obsessive-compulsive disorder, unspecified; Z79.84 Long term (current) use of oral hypoglycemic drugs; Z74.01 Bed confinement status; Z86.711 Personal history of pulmonary embolism; Z87.19 Personal history of other diseases of the digestive system; Z87.81 Personal history of (healed) traumatic fracture; Z66 Do not resuscitate
CPT/HCPCS: 36415; 36416; 36600; 71045; 74176; 78580; 80048; 80053; 81003; 82009; 82805; 82962; 83036; 83605; 83735; 83880; 84443; 85025; 85378; 85610; 87040; 87086; 87426; 92526; 92610; 93005; 96361; 96372; 96374; 99285; A9540; J1650; J1815 ×2; J2543; J3475; J7030

== ENCOUNTER 2021-09-16 12:19 | Inpatient (IN) | payer MEDICARE, MEDICAID, SELFPAY ==
[2021-09-16] VITALS (8 sets, daily range): BP systolic 104–189; BP diastolic 68–86; PULSE 68–79; RESP 14–21; TEMP 36.4–36.6; O2SAT 97–100; BMI 20.3
--- NOTE | 2021-09-16 12:23 | ED_ITS ---
HPI - Abdominal Pain General: Chief Complaint: Altered Mental Status Stated Complaint: AMS Time Seen by Provider: 09/16/21 12:23 Source: old records reviewed Limitations: altered mental status History of Present Illness: HPI narrative: Ms Linder is a 81-year-old lady with history reported of dementia who presents to the emergency department with altered mental status. Upon initial arrival she is the only one in the room and unable to provide any meaningful history or any verbal responses. She does appear to look around in regard however does not follow commands. Review of Systems General: Reports: ROS unobtainable due to mental status PFSH ED PFSH: Medical History Atherosclerosis of coronary artery COVID-19 Dementia Diabetes mellitus GERD (gastroesophageal reflux disease) GI bleed Hiatal hernia History of pulmonary embolism Hyperlipidemia Hypertension Neuropathy OCD (obsessive compulsive disorder) Surgical History S/P ORIF (open reduction internal fixation) fracture right humerous Family History Mother Cancer CAD (coronary artery disease) Myocardial infarction Stroke Diabetes Hypertension Father CAD (coronary artery disease) Myocardial infarction Sister Diabetes Grandmother Diabetes Social History Smoking and tobacco status: never smoked Physical Exam Narrative: EXAM NARRATIVE: GENERAL/CONSTITUTIONAL -ill-appearing. No acute distress. Eyes - PERRL, no conjunctival injection ENMT - Atraumatic external nose and ears. Dry mucous membranes NECK - supple. trachea midline CARDIOVASCULAR - regular rate and rhythm. Peripheral pulses 2+ and equal RESPIRATORY -coarse to auscultation bilaterally. Tachypnea. Mild accessory muscle use ABDOMEN/GI - Nontender/Nondistended. MSK - Extremities without obvious deformity or tenderness to palpation SKIN - Warm, Dry NEURO - alert but does not follow commands and does not verbalize responses. Appears to regard. Course ED course: - Patient was seen and evaluated by me at bedside - Patient placed on cardiac monitors, IV access obtained - Initial evaluation notable for ill appearance, no acute distress. Exam as noted above. - Given undifferentiated exam and recent history of pneumonia 30 cc/kg of IV fluids and dose of antibiotics ordered - Labs notable for no leukocytosis, near baseline normocytic anemia. Metabolic panel without significant abnormality to explain patient's symptoms, bicarb is decreased. Tachypnea likely secondary to metabolic process given ABG. 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 No lobar consolidation on chest x-ray. - Upon serial reexamination after treatment the patient was minimally improved - Patient's daughter at bedside. Prior to this past hospitalization patient's mental status was reportedly significantly better, she could eat and drink however since discharge from hospital essentially has not been able to at SNF. Primarily brought in due to this and concern over dehydration. I had a lengthy discussion regarding ED evaluation results and potential causes of the patient's symptoms. Attempted p.o. challenge patient however she did not have meaningful intake. I did discuss with family that it is possible that being in the hospital again would make her worse and this may be related to simply the process of aging towards the end of life. - Based on patient history, evaluation, labs, and imaging as interpreted the most likely cause of the patient's condition is altered mental status of unclear etiology with inability to take adequate p.o. intake - Hospitalist service contacted and agreed admit the patient. - Patient was admitted without further deterioration or significant events. Vital Signs: Vital signs: Vital Signs Temperature 98.9 F 09/19/21 15:25 Pulse Rate 79 09/19/21 15:25 Respiratory Rate 16 09/19/21 15:25 Blood Pressure 160/90 09/19/21 15:25 Pulse Oximetry 97 09/19/21 15:25 MDM - Abdominal Pain Medical Records: Attestation: I reviewed the patient's medical records. Lab Data: Attestation: I reviewed the patient's lab results. Labs: Lab Results 09/16/21 09/16/21 09/16/21 13:29 13:41 13:41 WBC 10.0 10^3/uL 10^3 /uL (4.0-10.0) RBC 2.81 10^6/uL L 10 ^6/uL (4.1-5.3) Hgb 7.8 g/dL L g/dL (11.5-15.3) Hct 26.2 % L % (37.0-47.0) MCV 93.2 fl fl (81-99) MCH 27.8 pg L pg (28.0-34.0) MCHC 29.8 g/dL L g/dL (30.0-36.0) RDW 14.6 % % (12.1-15.1) Plt Count 241 10^3/cmm 10^3 /cmm (130-400) MPV 11.8 fL H fL (7.4-10.4) Neut % (Auto) 80.6 % % Lymph % (Auto) 10.8 % % [place] % (Auto) 4.3 % % Eos % (Auto) 2.3 % % Baso % (Auto) 0.2 % % Neut # (Auto) 8.04 10^3/uL H 10 ^3/uL (1.8-7.7) Lymph # (Auto) 1.1 10^3/uL 10^3/ uL (0.8-4.8) [place] # (Auto) 0.4 10^3/uL 10^3/ uL (0.2-0.9) Eos # (Auto) 0.2 10^3/uL 10^3/ uL (0.0-0.8) Baso # (Auto) 0.0 10^3/uL 10^3/ uL (0.0-0.1) Nucleated RBC % (a uto) 0 % % Nucleated RBCs # 0.0 /100WBC /100W BC Specimen Type Arterial Sample Site Brachial, left ABG pH 7.46 H (7.35-7.45) ABG pCO2 32.9 mmHg L mmHg (35-45) ABG pO2 130.0 mmHg H mmHg (80.0-100.0) ABG HCO3 23.1 mmol/L mmol/ L (22-26) ABG Base Excess -0.6 mmol/L mmol/ L (-2.0-2.0) Ángel Test Pos Hematocrit 23.9 % L % (37-47) O2 Delivery Device Nc O2 Liters/Min 2.0 % % FiO2 28.0 % % Healthcare Prof ID Cak Sodium Cancelled Potassium Cancelled Chloride Cancelled Carbon Dioxide Cancelled Anion Gap Cancelled BUN Cancelled Creatinine Cancelled GFR Calculation Cancelled Glucose Cancelled POC Glucose Calculated Osmolal ity Cancelled Calcium Cancelled Magnesium Cancelled Total Bilirubin Cancelled AST Cancelled ALT Cancelled Alkaline Phosphata se Cancelled Troponin T Baselin e Troponin T 120 Min [place] Troponin T Troponin T Hi Sens 6Hr Troponin T Hi Sens 6Hr Delta C-Reactive Protein Cancelled Total Protein Cancelled Albumin Cancelled Globulin Cancelled Procalcitonin Cancelled TSH Cancelled Urine Color Urine Appearance Urine pH Ur Specific Gravit y Urine Protein Urine Glucose (UA) Urine Ketones Urine Blood Urine Nitrate Urine Bilirubin Urine Urobilinogen Ur Leukocyte Skyla ase 09/16/21 09/16/21 09/16/21 13:41 14:09 14:25 WBC RBC Hgb Hct MCV MCH MCHC RDW Plt Count MPV Neut % (Auto) Lymph % (Auto) [place] % (Auto) Eos % (Auto) Baso % (Auto) Neut # (Auto) Lymph # (Auto) [place] # (Auto) Eos # (Auto) Baso # (Auto) Nucleated RBC % (a uto) Nucleated RBCs # Specimen Type Sample Site ABG pH ABG pCO2 ABG pO2 ABG HCO3 ABG Base Excess Ángel Test Hematocrit O2 Delivery Device O2 Liters/Min FiO2 Healthcare Prof ID Sodium 143 mmol/L mmol/L (136-145) Potassium 3.9 mmol/L mmol/L (3.5-5.1) Chloride 112 mmol/L H mmol /L (98-107) Carbon Dioxide 18 mmol/L L mmol/ L (22-29) Anion Gap 16.9 (5-19) BUN 15 mg/dL mg/dL (8-23) Creatinine 0.7 mg/dL mg/dL (0.5-0.9) GFR Calculation Not Reportable Glucose 194 mg/dL H mg/dL (65-115) POC Glucose 194 mg/dL H mg/dL (70-110) Calculated Osmolal ity 302 mOsm/kg H mOs m/kg (285-295) Calcium 8.3 mg/dL L mg/dL (8.5-10.5) Magnesium Total Bilirubin 0.2 mg/dL mg/dL (0.15-1.2) AST 27 U/L U/L (0-32) ALT 28 U/L U/L (0-33) Alkaline Phosphata se 86 IU/L IU/L (35-105) Troponin T Baselin e Cancelled Troponin T 120 Min [place] Troponin T Troponin T Hi Sens 6Hr Troponin T Hi Sens 6Hr Delta C-Reactive Protein 9.7 mg/L H mg/L (0.0-4.9) Total Protein 5.4 g/dL L g/dL (6.6-8.7) Albumin 3.2 g/dL L g/dL (3.5-5.2) Globulin 2.2 g/dL g/dL (1.3-4.6) Procalcitonin 0.14 ng/mL ng/mL (0-0.5) TSH 1.05 uIU/mL uIU/m L (0.27-4.20) Urine Color Urine Appearance Urine pH Ur Specific Gravit y Urine Protein Urine Glucose (UA) Urine Ketones Urine Blood Urine Nitrate Urine Bilirubin Urine Urobilinogen Ur Leukocyte Skyla ase 09/16/21 09/16/21 09/16/21 14:25 14:48 15:59 WBC RBC Hgb Hct MCV MCH MCHC RDW Plt Count MPV Neut % (Auto) Lymph % (Auto) [place] % (Auto) Eos % (Auto) Baso % (Auto) Neut # (Auto) Lymph # (Auto) [place] # (Auto) Eos # (Auto) Baso # (Auto) Nucleated RBC % (a uto) Nucleated RBCs # Specimen Type Sample Site ABG pH ABG pCO2 ABG pO2 ABG HCO3 ABG Base Excess Ángel Test Hematocrit O2 Delivery Device O2 Liters/Min FiO2 Healthcare Prof ID Sodium Potassium Chloride Carbon Dioxide Anion Gap BUN Creatinine GFR Calculation Glucose POC Glucose Calculated Osmolal ity Calcium Magnesium Total Bilirubin AST ALT Alkaline Phosphata se Troponin T Baselin e 65 ng/L H ng/L (0-10) Troponin T 120 Min [place] 69.58 ng/L H ng/L (0-10) Delta Troponin T 4.58 ABS# ABS# (0-10) Troponin T Hi Sens 6Hr Troponin T Hi Sens 6Hr Delta C-Reactive Protein Total Protein Albumin Globulin Procalcitonin TSH Urine Color Yellow (Yellow) Urine Appearance Clear (CLEAR) Urine pH 5 (5-7) Ur Specific Gravit y 1.015 (1.005-1.030) Urine Protein Neg (Negative) Urine Glucose (UA) 4+ H (Normal) Urine Ketones Negative (Negative) Urine Blood Neg (Negative) Urine Nitrate Negative (Negative) Urine Bilirubin Neg (Negative) Urine Urobilinogen Norm mg/dL mg/dL (Negative) Ur Leukocyte Skyla ase Negative (Negative) 3 09/16/21 09/17/21 09/17/21 19:31 06:19 06:19 WBC 11.3 10^3/uL H 10 ^3/uL (4.0-10.0) RBC 2.85 10^6/uL L 10 ^6/uL (4.1-5.3) Hgb 8.1 g/dL L g/dL (11.5-15.3) Hct 26.6 % L % (37.0-47.0) MCV 93.3 fl fl (81-99) MCH 28.4 pg pg (28.0-34.0) MCHC 30.5 g/dL g/dL (30.0-36.0) RDW 14.7 % % (12.1-15.1) Plt Count 281 10^3/cmm 10^3 /cmm (130-400) MPV 11.3 fL H fL (7.4-10.4) Neut % (Auto) 78.7 % % Lymph % (Auto) 12.5 % % [place] % (Auto) 3.9 % % Eos % (Auto) 2.8 % % Baso % (Auto) 0.2 % % Neut # (Auto) 8.93 10^3/uL H 10 ^3/uL (1.8-7.7) Lymph # (Auto) 1.4 10^3/uL 10^3/ uL (0.8-4.8) [place] # (Auto) 0.4 10^3/uL 10^3/ uL (0.2-0.9) Eos # (Auto) 0.3 10^3/uL 10^3/ uL (0.0-0.8) Baso # (Auto) 0.0 10^3/uL 10^3/ uL (0.0-0.1) Nucleated RBC % (a uto) 0 % % Nucleated RBCs # 0.0 /100WBC /100W BC Specimen Type Sample Site ABG pH ABG pCO2 ABG pO2 ABG HCO3 ABG Base Excess Ángel Test Hematocrit O2 Delivery Device O2 Liters/Min FiO2 Healthcare Prof ID Sodium 141 mmol/L mmol/L (136-145) Potassium 3.2 mmol/L L mmol /L (3.5-5.1) Chloride 110 mmol/L H mmol /L (98-107) Carbon Dioxide 16 mmol/L L mmol/ L (22-29) Anion Gap 18.2 (5-19) BUN 11 mg/dL mg/dL (8-23) Creatinine 0.7 mg/dL mg/dL (0.5-0.9) GFR Calculation Not Reportable Glucose 141 mg/dL H mg/dL (65-115) POC Glucose Calculated Osmolal ity 294 mOsm/kg mOsm/ kg (285-295) Calcium 7.6 mg/dL L mg/dL (8.5-10.5) Magnesium Total Bilirubin 0.2 mg/dL mg/dL (0.15-1.2) AST 36 U/L H U/L (0-32) ALT 36 U/L H U/L (0-33) Alkaline Phosphata se 83 IU/L IU/L (35-105) Troponin T Baselin e Troponin T 120 Min [place] Troponin T Troponin T Hi Sens 6Hr 61.49 ng/L H ng/L (0-10) Troponin T Hi Sens 6Hr Delta -3.51 ng/L L ng/L (0-12) C-Reactive Protein Total Protein 5.2 g/dL L g/dL (6.6-8.7) Albumin 3.0 g/dL L g/dL (3.5-5.2) Globulin 2.2 g/dL g/dL (1.3-4.6) Procalcitonin TSH Urine Color Urine Appearance Urine pH Ur Specific Gravit y Urine Protein Urine Glucose (UA) Urine Ketones Urine Blood Urine Nitrate Urine Bilirubin Urine Urobilinogen Ur Leukocyte Skyla ase 09/17/21 09/17/21 06:19 06:44 WBC RBC Hgb Hct MCV MCH MCHC RDW Plt Count MPV Neut % (Auto) Lymph % (Auto) [place] % (Auto) Eos % (Auto) Baso % (Auto) Neut # (Auto) Lymph # (Auto) [place] # (Auto) Eos # (Auto) Baso # (Auto) Nucleated RBC % (a uto) Nucleated RBCs # Specimen Type Sample Site ABG pH ABG pCO2 ABG pO2 ABG HCO3 ABG Base Excess Ángel Test Hematocrit O2 Delivery Device O2 Liters/Min FiO2 Healthcare Prof ID Sodium Potassium Chloride Carbon Dioxide Anion Gap BUN Creatinine GFR Calculation Glucose POC Glucose 157 mg/dL H mg/dL (70-110) Calculated Osmolal ity Calcium Magnesium Total Bilirubin AST ALT Alkaline Phosphata se Troponin T Baselin e Troponin T 120 Min [place] Troponin T Troponin T Hi Sens 6Hr Troponin T Hi Sens 6Hr Delta C-Reactive Protein Total Protein Albumin Globulin Procalcitonin 0.10 ng/mL ng/mL (0-0.5) TSH Urine Color Urine Appearance Urine pH Ur Specific Gravit y Urine Protein Urine Glucose (UA) Urine Ketones Urine Blood Urine Nitrate Urine Bilirubin Urine Urobilinogen Ur Leukocyte Skyla ase EKG Data ^: EKG 1: Attestation: I personally reviewed and interpreted this EKG as follows: EKG interpretation date: 09/16/21 EKG interpretation time: 14:09 Interpretation: Twelve-lead EKG shows a regular rhythm at a rate of 75. VA interval 110, QRS duration 86, QTc 451. Normal axis. Interpretation: Short VA. Sinus rhythm. Nonspecific ST segment abnormalities. EKG 2: Attestation: I personally reviewed and interpreted this EKG as follows: EKG interpretation date: 09/16/21 EKG interpretation time: 17:23 Interpretation: Twelve-lead EKG shows a regular rhythm at a rate of 79. VA interval 114, QRS duration 86, QTc 417. Normal axis. Interpretation: Short VA. Sinus rhythm. Nonspecific ST segment abnormalities. EKG 3: Attestation: I personally reviewed and interpreted this EKG as follows: EKG interpretation date: 09/16/21 EKG interpretation time: 19:08 Interpretation: Twelve-lead EKG shows a regular rhythm at a rate of 73. VA interval 116, QRS duration 96, QTc 443 Normal axis. Interpretation: Short VA. Sinus rhythm. Nonspecific ST segment abnormalities. Discharge Plan Discharge Admit Provider: Roberto Logan Condition: Stable Discharge Orders: Discharge Order (Routine); Ordered 09/19/21 Ordered By: Bhakti Roman Discharge Diet: Soft Mechanical Discharge Activity: Use walker/crutches as instructed and As per PT/OT instructions Coding Level of Care Code ED Electrotherapist for Darren Garcia
--- NOTE | 2021-09-16 12:41 | CT_ITS ---
WS: [id number] CT HEAD NONCONTRAST HISTORY: ams TECHNIQUE: Contiguous axial imaging performed through the brain in 2.5 mm imaging. Bone and soft tiss ue windows. Sagittal and coronal reformats reviewed. All CT scans at [facility] use at least one of these dose optimization techniques: automated exposure control; mA and/or kV adjustment per pa tient size (includes targeted exams where dose is matched to clinical indication); or iterative recon struction. DLP: 923.57 mGy.cm COMPARISON: 04/01/2021 Significant bilateral symmetric atrophy with volume loss and widening of the extracranial spaces. Luiz y similar to prior studies. ACCOUNTING COORDINATOR shunt catheter enters through the RIGHT parietal lobe with significant terminating in the anterior LEFT lateral ventricle. Similar to the prior study. No hemorrhage along the course of the catheter. Ventricles: Mild dilatation of the ventricles is similar to the prior study without significant deve loping ventriculomegaly. No inferior displacement of the cerebellar tonsils. Paranasal sinuses: As visualized are clear. Mastoid air cells: Well pneumatized. Calvarium and scalp: Skull is intact with no soft tissue edema or swelling. CT/CT head wo con* [id number] IMPRESSION: 1. ACCOUNTING COORDINATOR shunt catheter remains unchanged in position since 04/01/2021. 2. Very mild ventriculomegaly is similar to prior studies of no progression or hemorrhage. 3. Significant cerebral and cerebellar atrophy without progression.
--- NOTE | 2021-09-16 12:41 | XR_ITS ---
WS: [id number] SHUNT SERIES HISTORY: AMS COMPARISON: None available. AP and lateral skull and neck, AP and lateral thorax, AP and lateral abdomen. GLASSWARE MAKER DEMONSTRATOR shunt catheter projects over the RIGHT skull with the tip extending just to the LEFT of midline ex pected location of the lateral ventricle. Catheter extends along the RIGHT lateral neck of the RIGHT thorax and enters the peritoneal cavity anteriorly. The tip of the catheter is coiled and terminates in the RIGHT adnexa. No discontinuity along the course of the catheter. Bowel gas pattern appears within normal limits. No displacement of the bowel loops. Calcification in the RIGHT upper abdomen. XR/XR shunt series IMPRESSION: 1. Appearance of the GLASSWARE MAKER DEMONSTRATOR shunt catheter appears intact. No discontinuity or maureen aks. 2. Partially calcified thoracic aorta.
--- NOTE | 2021-09-16 12:43 | ECG_ITS ---
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
[2021-09-16 13:40] LABS: ABG PCO2 32.9 mmHg (35-45); ABG PH Result 7.46 (7.35-7.45); Arterial Blood Gas Hematocrit 23.9 % (37-47); Base Excess ABG -0.6 mmol/L (-2.0-2.0); Blood Gas Allen Test Pos; Blood Gas Operator Identificat CAK; Blood Gas Sample Site Brachial, left; Blood Gas Sample Type Arterial; HCO3 ABG 23.1 mmol/L (22-26); Oxygen Device NC
[2021-09-16 13:50] LABS: Basophils % 0.2 %; Eosinophils # 0.2 10^3/uL (0.0-0.8); Eosinophils % 2.3 %; Hematocrit 26.2 % (37.0-47.0); Hemoglobin 7.8 g/dL (11.5-15.3); Lymphocytes # 1.1 10^3/uL (0.8-4.8); Lymphocytes % 10.8 %; Mean Corpuscular HGB Conc 29.8 g/dL (30.0-36.0); Mean Corpuscular Hemoglobin 27.8 pg (28.0-34.0); Mean Corpuscular Volume 93.2 fl (81-99); Mean Platelet Volume 11.8 fL (7.4-10.4); Monocytes # 0.4 10^3/uL (0.2-0.9); Monocytes % 4.3 %; Neutrophils # 8.04 10^3/uL (1.8-7.7); Neutrophils % 80.6 %; Nucleated Red Blood Cells % 0 %; Platelet Count 241 10^3/cmm (130-400); Red Blood Count 2.81 10^6/uL (4.1-5.3); Red Cell Distribution Width 14.6 % (12.1-15.1)
--- NOTE | 2021-09-16 13:53 | XR_ITS ---
WS: [id number] PORTABLE CHEST HISTORY: ams COMPARISON: 09/13/2021 PAINT PREPPER shunt catheter projects over the RIGHT thorax. Catheter is contiguous. Partial obscuration of the LEFT hemidiaphragm due to a large hiatal hernia. No pneumonia. RIGHT lung is clear. No pleural effusion or pneumothorax. Cardiac size: Mildly enlarged cardiac silhouette. Mediastinum/Aorta: Moderate atherosclerosis aorta. No osseous abnormality seen. XR/XR chest 1V portable [id number] IMPRESSION: 1. Large hiatal hernia. 2. Minimal compressive atelectasis at the LEFT lung base. 3. No pneumonia.
[2021-09-16 14:23] LABS: Glucose Point of Care 194 mg/dL (70-110)
--- NOTE | 2021-09-16 14:26 | PC.PHAR ---
pt is from [facility]-nancy nurse at [facility] states the pt took no am meds today-nancy states that wendy freeman lab support technician dced the pts humalog ss with meals and hs and lantus 10 units hs those rxs were written on the pts discharge on 09/14/21-
--- NOTE | 2021-09-16 14:43 | ECG_ITS ---
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: : 1940 Requested By: Mauro Frye Order Number: [id number] Reading MD: ALBER REY Measurements Intervals [place] Rate: 75 P: -19 ID: 110 QRS: 77 QRSD: 86 T: 26 QT: 422 QTc: 473 Interpretive Statements SINUS RHYTHM WITH MARKED SINUS ARRHYTHMIA WITH SHORT ID INTERVAL NONSPECIFIC T-WAVE ABNORMALITY Compared to ECG 09/10/2021 20:02:18 Short ID interval now present Ectopic atrial tachycardia, multifocal no longer present T-wave abnormality still present Electronically Signed On 09-16-2021 14:31:16 MUSIC WRITER by ALBER REY [id number]
--- NOTE | 2021-09-16 14:54 | PC.NURSE ---
nursing staff attempted x 2 to straight cath patient, was unsuccessful x 2. Third attempt was successful. Noting clear, straw colored urine.
[2021-09-16] MEDS: piperacillin-tazobactam 4.5 GM in sodium chloride 0.9% (plus) 50 ML IV (15:12)
[2021-09-16 15:30] LABS: Troponin(5th) Baseline 65 ng/L (0-10)
[2021-09-16 15:36] LABS: Procalcitonin 0.14 ng/mL (0-0.5); Thyroid Stimulating Hormone 1.05 uIU/mL (0.27-4.20)
[2021-09-16 15:48] LABS: Alanine Aminotransferase 28 U/L (0-33); Albumin Level 3.2 g/dL (3.5-5.2); Alkaline Phosphatase 86 IU/L (35-105); Anion Gap 16.9 (5-19); Aspartate Amino Transferase 27 U/L (0-32); Blood Urea Nitrogen 15 mg/dL (8-23); C Reactive Protein 9.7 mg/L (0.0-4.9); Calcium 8.3 mg/dL (8.5-10.5); Carbon Dioxide 18 mmol/L (22-29); Chloride 112 mmol/L (98-107); Globulin 2.2 g/dL (1.3-4.6); Glucose 194 mg/dL (65-115); Osmolality Calculated 302 mOsm/kg (285-295); Potassium 3.9 mmol/L (3.5-5.1); Sodium 143 mmol/L (136-145); Total Bilirubin 0.2 mg/dL (0.15-1.2); Total Protein 5.4 g/dL (6.6-8.7)
[2021-09-16 15:55] LABS: Add Urine Microscopic? NO; Charge for UA Resulting for Rev
[2021-09-16 16:00] LABS: Protein Urine Neg (Negative); Specific Gravity, Urine 1.015 (1.005-1.030); Urine Appearance Clear (CLEAR); Urine Color Yellow (Yellow); pH Urine 5 (5-7)
[2021-09-16 16:01] LABS: Bilirubin Urine Neg (Negative); Blood Urine Neg (Negative); Glucose Urine UA 4+ (Normal); Ketones Urine Negative (Negative); Leukocyte Esterase Urine Negative (Negative); Nitrate Urine Negative (Negative); Urobilinogen Urine Norm (Negative)
[2021-09-16] MEDS: sodium chloride 0.9% 1,564.89 ML 1564.89 ML IV (16:07)
[2021-09-16 16:34] LABS: Troponin 5 2HR 69.58 ng/L (0-10); Troponin 5 2HR Delta 4.58 ABS# (0-10)
--- NOTE | 2021-09-16 18:43 | ECG_ITS ---
[facility] Test Date: 2021-09-16 Pat Name: Ladonna Linder Department: Room: Gender: Female Remarketing Rep: : 1940 Requested By: Mauro Frye Order Number: [id number] Reading MD: ALBER REY Measurements Intervals [place] Rate: 73 P: 80 IL: 116 QRS: -16 QRSD: 96 T: 41 QT: 417 QTc: 462 Interpretive Statements SINUS RHYTHM WITH SHORT IL INTERVAL WITH OCCASIONAL SUPRAVENTRICULAR PREMATURE COMPLEXES NONSPECIFIC T-WAVE ABNORMALITY Compared to ECG 09/16/2021 17:16:30 Sinus arrhythmia no longer present T-wave abnormality still present Electronically Signed On 09-19-2021 13:02:04 COLLEGE ADVISOR by LABER REY [id number]
[2021-09-16 20:00] LABS: Troponin 5 6HR 61.49 ng/L (0-10)
[2021-09-16 20:01] LABS: Troponin 5 6HR Delta -3.51 ng/L (0-12)
--- NOTE | 2021-09-16 22:19 | PC.NURSE ---
ADMIT NOTE To floor from ER at 2210.Is awake and alert. Answering questions but is confused. Was able to tell me her name, and told me she was from [place]. Unaware that she is now in the hospital. Incont on arrival to floor and brief was changed. PIID intact to left wrist area. O2 in place at 2l per NC. Bed alarm on for pt safety.
--- NOTE | 2021-09-16 23:48 | P.HP_ITS ---
Providers/Chief Complaint Admitting Physician: Roberto Logan Primary Care Provider: Edwardo Carranza Jr, MD Chief Complaint: AMS History of Present Illness 81-year-old with a past medical history significant for hypertension, hyperlipidemia, hypothyroidism, diabetes mellitus, pulmonary embolism not on anticoagulation due to recurrent GI bleed, normal pressure hydrocephalus s/p CASING FINISHER AND STUFFER shunt, chronic hypoxemic respiratory failure on 2 L by nasal cannula advanced dementia leading to nonverbal bed bound state who was recently discharged form hospital on 09/14 now presenting to ER with worsening mental status. Patient appears to have a progressive decline in the past few weeks. She was not able to provide any history and no family at bedside however EMR was reviewed.Laboratory workup on arrival showed a WBC of 10.0, hemoglobin of 7.8, hematocrit of 26.2 and a platelet count of 241. Arterial blood gases showed a pH of 7.46, pCO2 32.9, PO2 of 130 and a bicarb of 23.1.Sodium 143, potassium 3.9, chloride 112, bicarb 18, BUN 15 and creatinine is 0.7. Glucose of 194. Troponin T baseline of 65 in repeat of 69 at 2hr. CRP of 9.7. UA was negative for leukocyte esterase/nitrates. Imaging studies included chest x-ray which showed large hiatal hernia without any evidence of pneumonia. Head CT which showed stable CASING FINISHER AND STUFFER shunt catheter with mild ventriculomegaly.In emergency room patient was given Zosyn 4.5 g IV x1. Review of Systems General: Reports: ROS unobtainable due to mental status Medications/Allergies Home Medications Medication Instructions Recorded Confirmed Last Taken Type acetaminophen 325 mg tablet 650 mg PO Q4H PRN 02/18/20 09/16/21 Unknown History amantadine HCl 100 mg capsule 100 mg PO BID@02/18/20 09/16/21 04/01/21 08:00 History clozapine 50 mg tablet 50 mg PO DAILY@02/18/20 09/16/21 04/01/21 08:00 History lurasidone 40 mg tablet 40 mg PO DAILY@02/18/20 09/16/21 03/31/21 History metoprolol succinate 25 mg 12.5 mg PO DAILY@02/18/20 09/16/21 04/01/21 08:00 History tablet,extended release 24 hr polyethylene glycol 3350 17 gram 17 gm PO DAILY@02/18/20 09/16/21 04/01/21 08:00 History oral powder packet sennosides 8.6 mg capsule 8.6 mg PO DAILY@02/18/20 09/16/21 04/01/21 History vitamin B complex 1 tab PO DAILY@02/18/20 09/16/21 04/01/21 History bisacodyl 10 mg [place] DAILY PRN 10/08/20 09/16/21 Unknown History cranberry 400 mg PO BID@10/08/20 09/16/21 04/01/21 08:00 History estradiol [Estrace] 1 g VAGINAL .TWICE A WEEK 10/08/20 09/16/21 03/31/21 History magnesium hydroxide [Milk of 30 ml PO DAILY PRN 10/08/20 09/16/21 Unknown History Magnesia] polyvinyl alcohol [Artificial 1 drp OPHTHALMIC (EYE) QID 10/08/20 09/16/21 04/01/21 History Tears (polyvin alc)] TwoCal HN 1 ea PO TID 04/01/21 09/16/21 Unknown History alprazolam [Xanax] 0.25 - 0.5 mg PO BID PRN 04/01/21 09/16/21 03/31/21 History clozapine 200 mg PO DAILY@04/01/21 09/16/21 03/31/21 History levetiracetam [Keppra] 500 mg PO BID@04/01/21 09/16/21 04/01/21 08:00 History levothyroxine 75 mcg PO DAILY@04/01/21 09/16/21 04/01/21 History metformin 500 mg PO BID@04/01/21 09/16/21 04/01/21 07:00 History pantoprazole [Protonix] 20 mg PO BID 04/01/21 09/16/21 04/01/21 06:00 History pravastatin 10 mg PO DAILY@04/01/21 09/16/21 03/31/21 History sertraline 100 mg PO DAILY 09/11/21 09/16/21 Unknown History amoxicillin-pot clavulanate 1 tab PO BID 2 Days #4 tab 09/14/21 09/16/21 Unknown Rx [Augmentin] alprazolam [Xanax] 0.25 mg PO BID 09/16/21 09/16/21 Unknown History mirtazapine 7.5 mg PO DAILY@20 09/16/21 09/16/21 Unknown History sodium phosphates [Enema 118 ml [place] DAILY PRN 09/16/21 09/16/21 Unknown History Disposable] Allergies Allergy/AdvReac Type Severity Reaction Status Date / Time Sulfa (Sulfonamide Allergy Unknown Unknown Verified 09/16/21 14:28 Antibiotics) sulfamethoxazole Allergy Unknown Unknown Verified 09/16/21 14:28 [From Bactrim] trimethoprim [From Bactrim] Allergy Unknown Unknown Verified 09/16/21 14:28 tuberculin, purified protein Allergy Unknown Verified 09/16/21 14:28 deriva PFSH Acute PFSH: Medical History Atherosclerosis of coronary artery COVID-19 Dementia Diabetes mellitus GERD (gastroesophageal reflux disease) GI bleed Hiatal hernia History of pulmonary embolism Hyperlipidemia Hypertension Neuropathy OCD (obsessive compulsive disorder) Surgical History S/P ORIF (open reduction internal fixation) fracture right humerous Family History Mother Cancer CAD (coronary artery disease) Myocardial infarction Stroke Diabetes Hypertension Father CAD (coronary artery disease) Myocardial infarction Sister Diabetes Grandmother Diabetes Social History Smoking and tobacco status: never smoked Vitals/I&O/Wt Last Vital Signs Temp 97.9 F 09/16/21 22:56 Pulse 71 09/16/21 22:56 Resp 21 H 09/16/21 22:56 BP 182/80 09/16/21 22:56 Pulse Ox 99 09/16/21 22:56 09/16/21 09/16/21 09/17/21 14:59 22:59 06:59 Intake Total 50 / 50 Balance 50 / 50 Weight last 48 hrs Weight 52.163 kg Physical Exam Narrative: EXAM NARRATIVE: General : Non-verbal on 2L of O2 via NC HEENT: Grossly Unremarkable CVS: RRR Chest: Non-labored respiration Abd: Soft, NT,ND Ext; No edema Neuro - unable to assess Data : 09/16/21 13:41 09/16/21 14:25 A&P Assessment and plan (1) Adult failure to thrive: Status: Acute Additional A&P Information Adult failure to thrive No clear evidence of acute infection CT head/Chest xray - negative. Likely progression of advanced dementia Will monitor off abx Started on IVF -NS at 75cc/hr Bedside swallow Solo Truck Driver consult May need to consider PEG tube Fall precautions PT/OT consultation DVT ppx SCDS Additional Medical Problems Chronic hyperemic respiratory failure on 2L Hx of PE off OAC due to GI bleed Hypertension Hyperlipidemia Hypothyroidism Diabetes Mellitus NPH s/p CASING FINISHER AND STUFFER shunt Verify home meds in AM Consult with SW - D/w family goals of care. Attestations Medical Necessity Statement*: Anticipate less than 2 midnight stay in hospital for eval and treatment Time Spent in Patient Care: Greater than 35 minutes (>than 50% of time spent in counselling and/or direct pt care on unit) . Coding Level of Care Code Acute Silk Printer for Darren Fwd Diagnoses Adult failure to thrive R62.7
[2021-09-16] MEDS: heparin 5,000 unit/mL INJ 1 mL 5000 UNIT SUBCUT (23:57)
[2021-09-16] MEDS: sodium chloride 0.9% 1,000 ML 75 ML IV (23:57)
[2021-09-17] VITALS (9 sets, daily range): BP systolic 137–177; BP diastolic 67–93; PULSE 58–83; RESP 15–24; TEMP 36.6–37; O2SAT 97–100
--- NOTE | 2021-09-17 05:40 | PC.NURSE ---
SHIFT SUMMARY Has been awake most of the night since admission. Quiet and is observed to be just looking around. Does speak and answer nurse but remains confused. Does not follow commands well. Doesn't appear to understand what I am asking her to do. IV infusing at 75ml/hr rate. Has been incont urine and bowels tonight.
[2021-09-17 06:45] LABS: Basophils % 0.2 %; Eosinophils # 0.3 10^3/uL (0.0-0.8); Eosinophils % 2.8 %; Hematocrit 26.6 % (37.0-47.0); Hemoglobin 8.1 g/dL (11.5-15.3); Lymphocytes # 1.4 10^3/uL (0.8-4.8); Lymphocytes % 12.5 %; Mean Corpuscular HGB Conc 30.5 g/dL (30.0-36.0); Mean Corpuscular Hemoglobin 28.4 pg (28.0-34.0); Mean Corpuscular Volume 93.3 fl (81-99); Mean Platelet Volume 11.3 fL (7.4-10.4); Monocytes # 0.4 10^3/uL (0.2-0.9); Monocytes % 3.9 %; Neutrophils # 8.93 10^3/uL (1.8-7.7); Neutrophils % 78.7 %; Nucleated Red Blood Cells % 0 %; Platelet Count 281 10^3/cmm (130-400); Red Blood Count 2.85 10^6/uL (4.1-5.3); Red Cell Distribution Width 14.7 % (12.1-15.1); White Blood Count 11.3 10^3/uL (4.0-10.0)
[2021-09-17 06:47] LABS: Glucose Point of Care 157 mg/dL (70-110)
[2021-09-17 07:37] LABS: Alanine Aminotransferase 36 U/L (0-33); Alkaline Phosphatase 83 IU/L (35-105); Anion Gap 18.2 (5-19); Aspartate Amino Transferase 36 U/L (0-32); Blood Urea Nitrogen 11 mg/dL (8-23); Calcium 7.6 mg/dL (8.5-10.5); Carbon Dioxide 16 mmol/L (22-29); Chloride 110 mmol/L (98-107); Globulin 2.2 g/dL (1.3-4.6); Glucose 141 mg/dL (65-115); Osmolality Calculated 294 mOsm/kg (285-295); Potassium 3.2 mmol/L (3.5-5.1); Sodium 141 mmol/L (136-145); Total Bilirubin 0.2 mg/dL (0.15-1.2); Total Protein 5.2 g/dL (6.6-8.7)
[2021-09-17] MEDS: pantoprazole DR 40 mg Tablet PO (10:07)
[2021-09-17] MEDS: sodium chloride 0.9% 1,000 ML 75 ML IV (13:30)
--- NOTE | 2021-09-17 14:34 | P.PN_ITS ---
Subjective Subjective: Interval history: This morning. Patient is not drowsy and appears quite perked up. She is also requesting for food and states she is hungry. Sister was at bedside. She stated that patient has a multitude of psychiatric issues in the past and she follows with Dr. Amato in [place]. [phone]. She has tried different medications for depression anxiety in the past but has not done so well and therefore was placed on clozapine. Ever since her clozapine was restarted patient has been feeling quite lethargic at the retirement. Therefore she was sent back to the hospital. Patient sister will attempt to contact the psychiatrist to see if we can speak to him prior to Sunday. Otherwise on Sunday we will call the clinic to obtain records. Patient needs to be optimized on her medications. At this time all medications have been held by night hospitalist due to patient's altered mental status. Vitals/I&O/Wt Last Vital Signs Temp 98.6 F 09/17/21 08:00 Pulse 69 09/17/21 11:43 Resp 17 09/17/21 11:43 BP 174/67 09/17/21 11:43 Pulse Ox 100 09/17/21 11:43 09/16/21 09/17/21 09/17/21 22:59 06:59 14:59 Intake Total 50 / 50 1000 / 1000 Balance 50 / 50 1000 / 1000 Weight last 48 hrs Weight 54.25 kg Weight 52.163 kg Physical Exam Narrative: EXAM NARRATIVE: General: Alert oriented x 1, appears euvolemic today., appears stated age HEENT: Normocephalic, atraumatic, EOMI, breathing 2 L nasal cannula Cardio: Regular rate rhythm, normal S1-S2, Respiratory: Diminished bilateral air entry, no rhonchi crackles or wheezes heard, generally clear to auscultation GI: Abdomen soft, nontender, nondistended, bowel sounds + Extremities: No edema Incontinent of urine. Data : 09/17/21 06:19 09/17/21 06:19 A&P Assessment and plan (1) Adult failure to thrive: Status: Acute Additional A&P Information Adult Failure to thrive No clear evidence of acute infection CT head/Chest xray - negative. Likely progression of advanced dementia Will monitor off abx Started on IVF -NS at 75cc/hr Bedside swallow passed. Will start patient on a diet. White Shoe Examiner consult Fall precautions PT/OT consultation Hold psych meds Will discuss with her psychiatrist Dr. Buck Amato [phone] in [place], [place] on Sunday regarding which medication to change her to. It seems after clozapine was restarted patient became drowsy and lethargic. Will continue keppra. Will hold amantadine and lurasidone. DVT ppx SCDS Additional Medical Problems Chronic hyperemic respiratory failure on 2L Hx of PE off OAC due to GI bleed Hypertension Hyperlipidemia Hypothyroidism Diabetes Mellitus NPH s/p TRANSPORTATION AIDE shunt Consult with SW - D/w family goals of care. Attestations Medical Necessity Statement*: > 48 hour stay Coding Level of Care Code Acute Immigration Case Manager for Chg Fwd Diagnoses Adult failure to thrive R62.7
[2021-09-17 17:42] LABS: Glucose Point of Care 144 mg/dL (70-110)
[2021-09-17] MEDS: insulin lispro 100 unit/1 mL SUBCUT ×2 (18:33→20:22)
[2021-09-17] MEDS: potassium chloride oral liq 20 mEq/15 mL UDC 40 MEQ PO (18:33)
[2021-09-17] MEDS: artificial tears Op Soln 15 mL Btl 1 DROP EYE-BOTH ×2 (18:34→20:08)
[2021-09-17] MEDS: amoxicillin-clav 875-125 mg Tablet 1 TAB PO (18:34)
[2021-09-17] MEDS: mirtazapine 15 mg Tablet 7.5 MG PO (20:09)
[2021-09-17] MEDS: atorvastatin 40 mg Tablet 20 MG PO (20:09)
[2021-09-17] MEDS: levETIRAcetam 500 mg Tablet PO (20:09)
[2021-09-17 20:19] LABS: Glucose Point of Care 188 mg/dL (70-110)
[2021-09-17] MEDS: insulin glargine 100 units/1 mL 10 UNIT SUBCUT (20:21)
--- NOTE | 2021-09-17 21:23 | PC.NURSE ---
NAUSEA/VOMITING Had a small emesis at beginning of shift that sister thought was from po Potassium she had just received. Just now had another small emesis/dry heaving when changed brief and repostioned. RN medicating with IV Zofran
[2021-09-17] MEDS: ondansetron 2 mg/ML SDV 2 mL 4 MG IVP (21:24)
[2021-09-18] MEDS: sodium chloride 0.9% 1,000 ML 75 ML IV (01:04)
[2021-09-18 04:00] VITALS: BP 177/97; PULSE 71; RESP 22; TEMP 36.6; O2SAT 100
--- NOTE | 2021-09-18 05:19 | PC.NURSE ---
SHIFT SUMMARY Has been awake much of the night. Quiet. Does talk when is asked a question. Remains confused. No further vomiting after receiving the IV Zofran in the evening. Is incont large amts of urine with brief changing. Has been repositioned thru night. IV infusing at 75ml/hr rate
[2021-09-18] MEDS: levothyroxine 75 mcg Tablet PO (05:30)
[2021-09-18 06:47] LABS: Glucose Point of Care 114 mg/dL (70-110)
[2021-09-18 07:24] VITALS: BP 165/85; PULSE 64; RESP 16; TEMP 36.9; O2SAT 99
[2021-09-18] MEDS: amlodipine 5 mg Tablet PO (11:01)
[2021-09-18] MEDS: pantoprazole DR 40 mg Tablet PO (11:01)
[2021-09-18] MEDS: sertraline 100 mg Tablet PO (11:01)
[2021-09-18] MEDS: sennosides 8.6 mg Tablet PO (11:01)
[2021-09-18] MEDS: amoxicillin-clav 875-125 mg Tablet 1 TAB PO ×2 (11:01→18:03)
[2021-09-18] MEDS: artificial tears Op Soln 15 mL Btl 1 DROP EYE-BOTH ×4 (11:02→20:09)
[2021-09-18] MEDS: polyethylene glycol 3350 Pkt 17 gm PO (11:02)
[2021-09-18] MEDS: levETIRAcetam 500 mg Tablet PO ×2 (11:07→20:05)
[2021-09-18] MEDS: metoprolol succinate ER (24 HR) 25 mg Tablet 12.5 MG PO (11:07)
[2021-09-18] MEDS: ondansetron 2 mg/ML SDV 2 mL 4 MG IVP (11:23)
[2021-09-18 11:44] LABS: Glucose Point of Care 132 mg/dL (70-110)
[2021-09-18 11:57] VITALS: BP 161/81; PULSE 66; RESP 16; TEMP 36.8; O2SAT 100
--- NOTE | 2021-09-18 13:35 | PM.PN ---
Subjective Subjective: Interval history: Seen this morning. She seems to be back to baseline. She is able to talk and she is alert and awake. No longer sedated or lethargic. Vitals/I&O/Wt Last Vital Signs Temp 98.2 F 09/18/21 11:57 Pulse 66 09/18/21 11:57 Resp 16 09/18/21 11:57 BP 161/81 09/18/21 11:57 Pulse Ox 100 09/18/21 11:57 09/17/21 09/18/21 09/18/21 22:59 06:59 14:59 Intake Total 360 / 1360 942.5 / 2302.5 240 / 240 Output Total 100 / 100 Balance 260 / 1260 942.5 / 2202.5 240 / 240 Weight last 48 hrs Weight 55.157 kg Weight 54.25 kg Physical Exam Narrative: EXAM NARRATIVE: General: Alert oriented x 1, appears euvolemic today., appears stated age. She is very awake and laughing and talking. HEENT: Normocephalic, atraumatic, EOMI, breathing 2 L nasal cannula Cardio: Regular rate rhythm, normal S1-S2, Respiratory: Diminished bilateral air entry, no rhonchi crackles or wheezes heard, generally clear to auscultation GI: Abdomen soft, nontender, nondistended, bowel sounds + Extremities: No edema Incontinent of urine. Data : 09/17/21 06:19 09/17/21 06:19 Micro: Microbiology 09/16/21 13:41 Blood Culture - Preliminary Blood SPECIMEN COLLECTED 09/16/21 13:40 Blood Culture - Preliminary Blood SPECIMEN COLLECTED A&P Assessment and plan (1) Adult failure to thrive: Status: Acute Additional A&P Information Adult Failure to thrive No clear evidence of acute infection CT head/Chest xray - negative. Likely progression of advanced dementia Will monitor off abx Started on IVF -NS at 75cc/hr Bedside swallow passed. Will start patient on a diet. Welding Machine Operator Gas consult Fall precautions PT/OT consultation Hold psych meds Will discuss with her psychiatrist Dr. Buck Amato [phone] in [place], [place] on Sunday for recommendations for her pscych meds. It seems after clozapine was restarted patient became drowsy and lethargic. Will continue keppra. Will hold amantadine and lurasidone. Patient is doing well without her psychiatric medications. Dr. Amato's clinic is closed over the weekend. Plan to send her back to custodial with follow up with Dr. Amato as an outpatient. Due to her extensive psychiatric history, it would be better she follows up with doctor who has been following her. DVT ppx SCDS Additional Medical Problems Chronic hyperemic respiratory failure on 2L Hx of PE off OAC due to GI bleed Hypertension Hyperlipidemia Hypothyroidism Diabetes Mellitus NPH s/p RIM TURNING FINISHER shunt Consult with SW - D/w family goals of care. SIster updated in detail in person. Attestations Medical Necessity Statement*: Discharge in AM after talking to her psychiatrist. Coding Level of Care Code Acute Pharmacy Retail Support Specialist for Chg Fwd Diagnoses Adult failure to thrive R62.7
[2021-09-18 15:05] VITALS: BP 180/84; PULSE 66; RESP 16; TEMP 36.7; O2SAT 100
[2021-09-18 16:59] LABS: Glucose Point of Care 182 mg/dL (70-110)
[2021-09-18] MEDS: insulin lispro 100 unit/1 mL SUBCUT ×2 (18:02→21:15)
[2021-09-18 19:09] VITALS: PULSE 86; RESP 20; O2SAT 95
[2021-09-18 19:22] LABS: ABG PH Result 7.45 (7.35-7.45); Alveolar-Arterial Oxygen Gradi 4.7 mmHg (5-10); Arterial Blood Gas Hematocrit 30.6 % (37-47); Base Excess ABG -2.4 mmol/L (-2.0-2.0); Blood Gas Allen Test Pos; Blood Gas Operator Identificat glc; Blood Gas Sample Site Radial, right; Blood Gas Sample Type Arterial; Carboxyhemoglobin 0.9 %THgb (0.4-20.1); HCO3 ABG 20.9 mmol/L (22-26); HGB O2 Sat 94.3 % (95-100); Ionized Calcium Level - ABG 1.2 mmol/L (1.1-1.4); Methemoglobin 0.5 % (0.4-1.5); Oxygen Device ROOM AIR; Oxygen Saturation ABG 95.7; PO2 ABG 76.1 mmHg (80.0-100.0); Potassium Level - ABG 3.1 mmol/L (3.5-5.0)
[2021-09-18 19:40] LABS: Lactate (Lactic Acid level) 0.9 mmol/L (0.5-2.2)
[2021-09-18 20:00] VITALS: BP 177/71; PULSE 77; RESP 17; TEMP 37.3; O2SAT 98
[2021-09-18] MEDS: atorvastatin 40 mg Tablet 20 MG PO (20:04)
[2021-09-18] MEDS: mirtazapine 15 mg Tablet 7.5 MG PO (20:05)
[2021-09-18 20:51] LABS: Glucose Point of Care 230 mg/dL (70-110)
[2021-09-18] MEDS: insulin glargine 100 units/1 mL 10 UNIT SUBCUT (21:15)
[2021-09-18] MEDS: hyDRALAzine 25 mg Tablet PO (21:15)
[2021-09-19] VITALS: BP 185/86; PULSE 96; RESP 17; TEMP 37.3; O2SAT 98
[2021-09-19 04:00] VITALS: BP 164/78; PULSE 82; RESP 16; TEMP 37.7; O2SAT 96
[2021-09-19] MEDS: levothyroxine 75 mcg Tablet PO (04:56)
[2021-09-19 06:04] LABS: Basophils # 0.1 10^3/uL (0.0-0.1); Basophils % 0.4 %; Eosinophils # 0.4 10^3/uL (0.0-0.8); Eosinophils % 2.6 %; Hematocrit 28.7 % (37.0-47.0); Hemoglobin 8.7 g/dL (11.5-15.3); Lymphocytes # 1.7 10^3/uL (0.8-4.8); Lymphocytes % 10.9 %; Mean Corpuscular HGB Conc 30.3 g/dL (30.0-36.0); Mean Corpuscular Hemoglobin 27.5 pg (28.0-34.0); Mean Corpuscular Volume 90.8 fl (81-99); Mean Platelet Volume 9.8 fL (7.4-10.4); Monocytes % 6.6 %; Neutrophils # 11.87 10^3/uL (1.8-7.7); Neutrophils % 77.9 %; Nucleated Red Blood Cells % 0 %; Platelet Count 415 10^3/cmm (130-400); Red Blood Count 3.16 10^6/uL (4.1-5.3); Red Cell Distribution Width 14.6 % (12.1-15.1); White Blood Count 15.3 10^3/uL (4.0-10.0)
[2021-09-19 06:30] LABS: Anion Gap 14.5 (5-19); Blood Urea Nitrogen 9 mg/dL (8-23); Calcium 8.5 mg/dL (8.5-10.5); Carbon Dioxide 20 mmol/L (22-29); Chloride 111 mmol/L (98-107); Glucose 104 mg/dL (65-115); Magnesium 1.5 mg/dL (1.7-2.3); Osmolality Calculated 293 mOsm/kg (285-295); Potassium 3.5 mmol/L (3.5-5.1); Sodium 142 mmol/L (136-145)
[2021-09-19 07:03] LABS: Glucose Point of Care 123 mg/dL (70-110)
[2021-09-19 07:35] VITALS: BP 180/79; PULSE 80; RESP 17; TEMP 37.3; O2SAT 97
[2021-09-19] MEDS: levETIRAcetam 500 mg Tablet PO (08:51)
[2021-09-19] MEDS: amoxicillin-clav 875-125 mg Tablet 1 TAB PO (08:51)
[2021-09-19] MEDS: sertraline 100 mg Tablet PO (08:52)
[2021-09-19] MEDS: metoprolol succinate ER (24 HR) 25 mg Tablet 12.5 MG PO (08:52)
[2021-09-19] MEDS: amlodipine 5 mg Tablet 10 MG PO (08:53)
[2021-09-19] MEDS: polyethylene glycol 3350 Pkt 17 gm PO (08:54)
[2021-09-19] MEDS: artificial tears Op Soln 15 mL Btl 1 DROP EYE-BOTH ×2 (08:54→11:45)
[2021-09-19] MEDS: sennosides 8.6 mg Tablet PO (08:54)
[2021-09-19] MEDS: pantoprazole DR 40 mg Tablet PO (08:54)
--- NOTE | 2021-09-19 10:32 | PC.CHAP ---
Pastoral Care Encounter/Spiritual Assessment Type of Contact [] Declined property economist visit [] Patient/Family/Request visit [] Outpatient visit [] Follow-up visit [] Physician referral [] Code/Alert [x] Routine visit [] Staff referral [] Actively dying [] Patient sleeping [] Family support [] [] Out of room [] Palliative care [] [] Receiving care in room [] Pre-surgical visit [] Trauma [] Long length of stay [] ICU visit [] Other: Relational/Emotional Strength []x Patient feels connected with others/family/visitors/staff [] Distress [] Loneliness/isolation [] Abandonment Spirituality of Patient [x] Person of Priscilla [] Attends Congregation of their Priscilla [x] Believes in Prayer [] Reads Bible or Baptist materials [] There are Spiritual issues to be addressed Forensic Identification Specialist Interventions [x] Prayer [x] Active listening [x] Non-anxious presence [] Spiritual/emotional support [] Crisis/trauma care [] Spiritual counseling [] Bereavement support [] Provided bereavement packet [] Provided Bible/devotional materials [] Provided toy/stuffed animal, coloring book to patient or family member [] Provided Communion [] Anointing/[place] [] Salvation [x] Completed spiritual assessment [] Other: Impact on Illness or Injury [] Angry [] Fearful [] Anxious [] Often cries [] Exhaustion [] Unable to work [] Unable to attend adventism [] Unable to walk/stand [] Unable to read [] Unable to drive [] Unable to eat/drink [] Unable to sleep [] Unable to be with family [] Patient intubated [] Other: Summary Time spent with patient 10 min
[2021-09-19 11:24] LABS: Glucose Point of Care 228 mg/dL (70-110)
[2021-09-19] MEDS: insulin lispro 100 unit/1 mL SUBCUT (11:45)
[2021-09-19 11:54] VITALS: BP 160/90; PULSE 79; RESP 16; TEMP 37.2; O2SAT 97
--- NOTE | 2021-09-19 13:22 | PM.DCS ---
Discharge Providers Date of Admission: 09/17/21 15:40 Date of Discharge: September 19, 2021 Attending Provider at Admission: Roberto Logan Attending Provider at Discharge: Bhakti Roman MD Primary Care Provider: Edwardo Carranza Jr, MD Diagnoses at Discharge Discharge Diagnosis (1) Adult failure to thrive: Reason for Visit Reason for Visit: [facility] Hospital Course Hospital Course History of Present Illness by Dr. 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 Patient appears to have a progressive decline in the past few weeks. She was not able to provide any history and no family at bedside however EMR was reviewed.Laboratory workup on arrival showed a WBC of 10.0, hemoglobin of 7.8, hematocrit of 26.2 and a platelet count of 241. Arterial blood gases showed a pH of 7.46, pCO2 32.9, PO2 of 130 and a bicarb of 23.1.Sodium 143, potassium 3.9, chloride 112, bicarb 18, BUN 15 and creatinine is 0.7. Glucose of 194. Troponin T baseline of 65 in repeat of 69 at 2hr. CRP of 9.7. UA was negative for leukocyte esterase/nitrates. Imaging studies included chest x-ray which showed large hiatal hernia without any evidence of pneumonia. Head CT which showed stable STRAIGHT TRUCK DRIVER shunt catheter with mild ventriculomegaly.In emergency room patient was given Zosyn 4.5 g IV x1 Hospital course Patient was recently admitted for management of dehydration, hyponatremia and UTI. As per the sister she was getting drowsy and more confused at the halfway after clozapine dose was increased. She is concerned about polypharmacy and requested admission to the hospital. During hospitalization most of her antipsychotics and antidepressants were held which improved her mentation. I did speak with her psychiatrist Dr. Amato in [place], he recommended continuing mirtazapine 50 mg at bedtime, increasing dose of Zoloft 250 mg daily and decreasing dose of clozapine to 100 mg at bedtime. Patient does have significant past medical history of psychosis with depression. Remote history of ECT as per the sister. Patient will be discharged back to her facility with adjustment in her medications. Physical Exam Narrative: EXAM NARRATIVE: General: Alert oriented x 1, appears euvolemic today., appears stated age. She is very awake and laughing and talking. HEENT: Normocephalic, atraumatic, EOMI, breathing 2 L nasal cannula Cardio: Regular rate rhythm, normal S1-S2, Respiratory: Diminished bilateral air entry, no rhonchi crackles or wheezes heard, generally clear to auscultation GI: Abdomen soft, nontender, nondistended, bowel sounds + Extremities: No edema Incontinent of urine Discharge Data Data Completed and Pending: Completed Studies During Hospitalization Category Date Time Status CT head wo con* 7 0450 Urgent Cat Scan 09/16/21 12:41 Completed XR chest 1V lidia ble [id number] Urgent Exams 09/16/21 13:53 Completed XR shunt series S tat Exams 09/16/21 12:41 Completed Pending at discharge Category Date Time Status Blood Culture Sta t Lab 09/16/21 13:41 Results Labs from last 24 hours 09/19/21 09/19/21 09/19/21 11:20 06:29 05:55 WBC RBC Hgb Hct MCV MCH MCHC RDW Plt Count MPV Neut % (Auto) Lymph % (Auto) [place] % (Auto) Eos % (Auto) Baso % (Auto) Neut # (Auto) Lymph # (Auto) [place] # (Auto) Eos # (Auto) Baso # (Auto) Nucleated RBC % (a uto) Nucleated RBCs # Specimen Type Sample Site ABG pH ABG pCO2 ABG pO2 ABG HCO3 ABG O2 Saturation ABG Base Excess Ángel Test A-a O2 Gradient Hematocrit Hgb O2 Saturation Carboxyhemoglobin Methemoglobin Total Hemoglobin Sodium 142 Potassium 3.5 Glucose 104 Ionized Calcium O2 Delivery Device FiO2 Business Test Analyst ID Chloride 111 H Carbon Dioxide 20 L Anion Gap 14.5 BUN 9 Creatinine 0.7 GFR Calculation Not Reportable POC Glucose 228 H 123 H Calculated Osmolal ity 293 Lactate Calcium 8.5 Magnesium 1.5 L 09/19/21 09/18/21 09/18/21 05:55 20:29 19:10 WBC 15.3 H RBC 3.16 L Hgb 8.7 L Hct 28.7 L MCV 90.8 MCH 27.5 L MCHC 30.3 RDW 14.6 Plt Count 415 H MPV 9.8 Neut % (Auto) 77.9 Lymph % (Auto) 10.9 [place] % (Auto) 6.6 Eos % (Auto) 2.6 Baso % (Auto) 0.4 Neut # (Auto) 11.87 H Lymph # (Auto) 1.7 [place] # (Auto) 1.0 H Eos # (Auto) 0.4 Baso # (Auto) 0.1 Nucleated RBC % (a uto) 0 Nucleated RBCs # 0.0 Specimen Type Arterial Sample Site Radial, right ABG pH 7.45 ABG pCO2 30.0 L ABG pO2 76.1 L ABG HCO3 20.9 L ABG O2 Saturation 95.7 ABG Base Excess -2.4 L Ángel Test Pos A-a O2 Gradient 4.7 L Hematocrit 30.6 L Hgb O2 Saturation 94.3 L Carboxyhemoglobin 0.9 Methemoglobin 0.5 Total Hemoglobin 10.0 L Sodium 141.0 Potassium 3.1 L Glucose 214.0 H Ionized Calcium 1.2 O2 Delivery Device Room air FiO2 21.0 Business Test Analyst ID glc Chloride Carbon Dioxide Anion Gap BUN Creatinine GFR Calculation POC Glucose 230 H Calculated Osmolal ity Lactate Calcium Magnesium 09/18/21 09/18/21 19:07 16:45 WBC RBC Hgb Hct MCV MCH MCHC RDW Plt Count MPV Neut % (Auto) Lymph % (Auto) [place] % (Auto) Eos % (Auto) Baso % (Auto) Neut # (Auto) Lymph # (Auto) [place] # (Auto) Eos # (Auto) Baso # (Auto) Nucleated RBC % (a uto) Nucleated RBCs # Specimen Type Sample Site ABG pH ABG pCO2 ABG pO2 ABG HCO3 ABG O2 Saturation ABG Base Excess Ángel Test A-a O2 Gradient Hematocrit Hgb O2 Saturation Carboxyhemoglobin Methemoglobin Total Hemoglobin Sodium Potassium Glucose Ionized Calcium O2 Delivery Device FiO2 Business Test Analyst ID Chloride Carbon Dioxide Anion Gap BUN Creatinine GFR Calculation POC Glucose 182 H Calculated Osmolal ity Lactate 0.9 Calcium Magnesium Vitals: Last Vital Signs Temp 98.9 F 09/19/21 11:54 Pulse 79 09/19/21 11:54 Resp 16 09/19/21 11:54 BP 160/90 09/19/21 11:54 Pulse Ox 97 09/19/21 11:54 Discharge Plan Discharge Patient Disposition: Xfer SNF Condition: Stable Prescriptions: Continued metoprolol succinate 25 mg tablet extended release 24 hr 12.5 mg PO DAILY@08 RF: 0 acetaminophen [Tylenol] 325 mg tablet 650 mg PO Q4H PRN (Reason: Pain) RF: 0 polyethylene glycol 3350 [Miralax] 17 gram powder in packet 17 gm PO DAILY@08 RF: 0 senna 8.6 mg capsule 8.6 mg PO DAILY@08 RF: 0 vitamin B complex [B Complex-Vitamin B12] Tablet 1 tab PO DAILY@08 RF: 0 polyvinyl alcohol [Artificial Tears (polyvin alc)] 1.4 % Drops 1 drp OPHTHALMIC (EYE) QID RF: 0 magnesium hydroxide [Milk of Magnesia] 400 mg/5 mL Suspension 30 ml PO DAILY PRN (Reason: Constipation) RF: 0 bisacodyl 10 mg Suppository 10 mg [place] DAILY PRN (Reason: Constipation) RF: 0 cranberry 400 mg Capsule 400 mg PO BID@08,20 RF: 0 estradiol [Estrace] 0.01 % (0.1 mg/gram) Cream 1 g VAGINAL .TWICE A WEEK RF: 0 pantoprazole [Protonix] 20 mg Tablet,Delayed Release (Dr/Ec) 20 mg PO BID RF: 0 levothyroxine 75 mcg tablet 75 mcg PO DAILY@06 RF: 0 pravastatin 10 mg Tablet 10 mg PO DAILY@20 RF: 0 TwoCal HN 0.08-2 gram-kcal/mL Liquid 1 ea PO TID RF: 0 levetiracetam [Keppra] 500 mg tablet 500 mg PO BID@08,20 RF: 0 metformin 500 mg tablet 500 mg PO BID@08,20 RF: 0 Enema Disposable 19-7 gram/118 mL Enema 118 ml [place] DAILY PRN (Reason: Constipation) RF: 0 Changed sertraline 100 mg Tablet 150 mg PO DAILY Qty: 0 RF: 0 mirtazapine 7.5 mg Tablet 15 mg PO DAILY@20 Qty: 30 RF: 0 clozapine 200 mg Tablet 100 mg PO DAILY@20 Qty: 30 RF: 0 Discontinued amantadine HCl 100 mg capsule 100 mg PO BID@08,20 RF: 0 clozapine 50 mg tablet 50 mg PO DAILY@08 RF: 0 Latuda 40 mg tablet 40 mg PO DAILY@18 RF: 0 alprazolam [Xanax] 0.25 mg Tablet 0.25 - 0.5 mg PO BID PRN (Reason: Anxiety) RF: 0 amoxicillin-pot clavulanate [Augmentin] 875-125 mg Tablet 1 tab PO BID 2 Days Qty: 4 RF: 0 alprazolam [Xanax] 0.25 mg Tablet 0.25 mg PO BID RF: 0 Discharge Orders: Discharge Order (Routine); Ordered 09/19/21 Ordered By: Bhakti Roman Discharge Diet: Soft Mechanical Discharge Activity: Use walker/crutches as instructed and As per PT/OT instructions Patient Instructions: Opioid Safety Discharge Attestations Time Spent in Discharge Care*: less than 30 min Quality Metrics Clinical Quality Measures During this hospital stay, did patient experience: None Coding Level of Care Code Acute Chg FW DC note Diagnoses Adult failure to thrive R62.7
--- NOTE | 2021-09-19 15:24 | PC.NURSE ---
report called to [facility], spoke with MARE Sinha.
--- NOTE | 2021-09-19 15:24 | PC.NURSE ---
patient loaded into wheelchair and transported to SNF by [facility].
[2021-09-19 15:25] VITALS: BP 160/90; PULSE 79; RESP 16; TEMP 37.2; O2SAT 97
== END 2021-09-19 15:26 | disposition skilled nursing facility (03) | DRG 690 ==
LOC: ER 21:03 → MEDSURG 21:31
PROVIDERS: Internal Medicine; Admitting Provider Hospitalist; Emergency Provider Emergency Medicine; PCP Family Medicine; Visit Provider Internal Medicine
DX: N39.0 Urinary tract infection, site not specified (principal); G91.9 Hydrocephalus, unspecified; J96.11 Chronic respiratory failure with hypoxia; E87.1 Hypo-osmolality and hyponatremia; E86.0 Dehydration; F03.90 Unspecified dementia, unspecified severity, without behavioral disturbance, psychotic disturbance, mood disturbance, and anxiety; I25.10 Atherosclerotic heart disease of native coronary artery without angina pectoris; Z86.16 Personal history of COVID-19; E11.42 Type 2 diabetes mellitus with diabetic polyneuropathy; K21.9 Gastro-esophageal reflux disease without esophagitis; K44.9 Diaphragmatic hernia without obstruction or gangrene; Z86.711 Personal history of pulmonary embolism; E78.5 Hyperlipidemia, unspecified; I10 Essential (primary) hypertension; F42.9 Obsessive-compulsive disorder, unspecified; E03.9 Hypothyroidism, unspecified; Z98.2 Presence of cerebrospinal fluid drainage device; Z74.01 Bed confinement status; R62.7 Adult failure to thrive; Z68.21 Body mass index [BMI] 21.0-21.9, adult; Z79.84 Long term (current) use of oral hypoglycemic drugs; F41.8 Other specified anxiety disorders
CPT/HCPCS: 36415; 36416; 36600; 51701; 70250; 70450; 71045; 71046; 72040; 74019; 80048; 80051; 80053; 81003; 82330; 82803; 82805; 82962; 83605; 83735; 84145; 84443; 84484; 85025; 86140; 87040; 93005; 96365; 96372; 97110; 97162; 97530; 99285; G0378; J1644; J1815 ×2; J2405; J2543; J7030